=== PATIENT | male | born 1945 | race Caucasian/White ===

== ENCOUNTER 2018-01-15 14:00 | Emergency (ER) | payer MEDICARE, OTHER ==
[2018-01-15] MEDS ORDERED: Ondansetron ODT TAB* 4 MG PO ONE (14:02)
[2018-01-15] MEDS ORDERED: Morphine INJ* 2 MG/ML 1 ML CARPUJECT IV ONE (14:21)
[2018-01-15] MEDS ORDERED: Ondansetron INJ* 2 MG/ML VIAL IV ONE (14:21)
[2018-01-15 14:26] LABS: ABS Basophils 0.1 10^3/ul (0-0.2); ABS Eosinophils 0.3 10^3/ul (0-0.6); ABS Lymphocytes 1.8 10^3/ul (1.0-4.8); ABS Monocytes 0.6 10^3/ul (0-0.8); ABS Neutrophils 8.2 10^3/ul (1.5-7.7); ABS Nucleated RBC 0 10^3/ul; Eosinophil % 2.9 % (0-6); Hematocrit 43 % (42-52); Hemoglobin 14.7 g/dl (14.0-18.0); Lymphocyte % 16.1 % (25-47); Mean Corpuscular HGB Conc 34 g/dl (31-36); Mean Corpuscular Hemoglobin 30 pg (27-31); Mean Corpuscular Volume 89 fL (80-94); Mean Platelet Volume 8.5 um3 (7.4-10.4); Nucleated Red Blood Cells % 0; Platelet Count 221 10^3/ul (150-450); Red Blood Count 4.84 10^6/ul (4.00-5.40); Red Cell Distribution Width 13 % (10.5-15)
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
[2018-01-15] MEDS ORDERED: Morphine VIAL* 4 MG/ML VIAL (1 ml vial) IV ONE ×2 (14:28→14:30)
[2018-01-15] MEDS ORDERED: NS 0.9% 1000 ML* 2,000 ML IV SCH (14:30)
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
[2018-01-15 15:00] LABS: EGFR Non-African American 65.6 (>60)
[2018-01-15 15:06] VITALS: BP 144/76
== END 2018-01-15 15:19 | disposition short-term general hospital (02) ==
LOC: ED 14:00
DX: R07.9 Chest pain, unspecified (principal); M54.2 Cervicalgia; R07.81 Pleurodynia; R06.00 Dyspnea, unspecified; V28.4XXA Motorcycle driver injured in noncollision transport accident in traffic accident, initial encounter; Y92.9 Unspecified place or not applicable; Z87.891 Personal history of nicotine dependence; Z79.82 Long term (current) use of aspirin
CPT/HCPCS: 36415; 71045; 72170; 80053; 80320; 80329; 83605; 84443; 85025; 93005; 96374; 96375; 99285; A9270-GY; G0480; J2270; J2405

== ENCOUNTER 2018-02-06 10:32 | Emergency (ER) | payer MEDICARE, BC ==
--- OUTSIDE RECORDS SUMMARY | 2018-02-06 10:59 | XMS REPORT ---
:1945 External Reference #:[id number] Author Organization [facility] Address [address] [place] [address] Phone [phone] Care Team Providers Name Role Phone Paulo Reyna M.D. Care Team Information Pharmacy Helper Unavailable Payers Type Date Identification Numbers Payment Provider Subscriber Medicare Primary Effective: Policy Number: Medicare - Bswny Chas Tapia 2007 [id number] [facility] PayID: [id number] [address] [place] [address] Medigap Part B Effective: Policy Number: [facility] Chas Gutierrez 2018 [id number] [place] Group Name: [place] [address] [address] PayID: [id number] [place] [address] Medigap Part B Expires: 2014 Policy Number: Lifetime Benefit Chas Gutierrez [id number] Solution [place] PayID: [id number] [address] [address] [place] [address] Commercial Effective: 2014 Policy Number: MVP [facility] Chsa Tapia [id number] Expires: 2018 Group Number: [id number] [address] PayID: [id number] [place] [address] Problems Date Description Provider Status Onset: 09/03/2010 Pure hypercholesterolemia Paulo Reyna M.D. Active Onset: 09/03/2010 Raised prostate specific antigen Paulo Reyna M.D. Active Onset: 09/03/2010 Hematuria syndrome Paulo Reyna M.D. Active Onset: 09/03/2010 Impaired fasting glycaemia Paulo Reyna M.D. Active Family History Date Family Member(s) Problem(s) Comments : (age Father due to 68 Years) Complications From Hip Surgery Father Arthritis Mother Cancer, Breast : (age Mother due to Unknown ?CHF, no NH 98 Years) Causes Mother Cancer, Bladder Children 2 First Son Asthma Siblings One brother, two sisters First Brother Familial Adenomatous Polyposis First Sister Non Contributory Second Sister Obesity Grandchildren 4 Paternal Grandfather Diabetes Paternal Grandmother due to Had () - Cancer, Unknown Primary abdominal Paternal Grandmother Diabetes Maternal Grandfather due to Pneumonia () Maternal Grandmother due to Unknown () Causes Paternal Uncles Diabetes Social History Type Date Description Comments Marital Status Lives With Spouse 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 Cigarette Use former cigarette smoker Cigarette Use . Smoked off and on about 20 years. Up to 1 age 49. 1/2 ppd. Quit around ETOH Use Drinks a beer with dinner and an occasional scotch. Exercise Type/Frequency Does not exercise currently Allergies, Adverse Reactions, Alerts Date Description Reaction Status Severity Comments 11/03/2005 NKDA active Medications Medication Date Status Form Strength Qnty SIG Indications Ordering Provider Vitamin C 01/21/ Active Tablets 500mg 120ta 1 tab by [id number] Tony 2017 bs mouth twice [place], a day for 2 MD months Proscar 06/04/ Active Tablets 5mg 1 po qd [id number] MD Flavio Aspirin 10/26/ Active Chewtabs 81mg 90uni 1 PO qd Paulo 2007 ts Iona Reyna Betaxolol HCL / Active Solution 0.5% one drop Salazar, 0000 each eye Primo MJerome, daily Latanoprost / Active Solution 0.005% Instill 1 Unknown 0000 Drop In Each Eye Every Night Oxycodone / Active Unknown 0000 Doxycycline 05/07/ Hx Capsules 100mg 2caps 2 cap by Tony Saldana 2016 - mouth once [place], 01/21/ 2017 Doxycycline 12/02/ Hx Tablets 100mg 2tabs take 2 E906.4 Pualo Saldana 2016 - DR tablets po Axel, 01/12/ times one M.DJerome 2017 dose for the prevention of lyme disease Keflex 11/26/ Hx Capsules 500mg 10cap 1 twice a Paulo 2015 - day x 5 days Axel 03/26/ M.D. 2016 Doxycycline 03/09/ Hx Tablets 100mg 2tabs 2 tablet by Roxanne Reyes 2014 - mouth today Frannie, 07/31/ RECEPTION MANAGER-C 2015 Doxycycline 10/04/ Hx Tablets 100mg 2tabs take 2 E906.4 Jaclyn Saldana 2011 - DR tablets po Naomi Lockhart, 10/05/ times one M.D. 2011 dose for the prevention of lyme disease Viagra 09/10/ Hx Tablets 100mg 12tab 07/06-1 tab Paulo 2011 - s before Axel, 01/21/ intercourse M.D. 2018 Cialis 06/05/ Hx Tablets 20mg 20tab 07/06 to 1 qd Paulo 2010 - s prn Axel, M.DJerome 2017 Physical Hx Evaluate and Paulo Shirley 2010 - treat left Axel, 01/08/ knee pain M.D. 2010 and right shoulder pain Wrist Splints Hx 1unit right wrist, 354.0 Paulo 2009 - s tendonitis Axel, 01/02/ M.DJerome 2009 Zithromax Z-Baldomero 02/07/ Hx Tablets 250mg 6tabs 2 po on day 466.0 Ananya A. 2007 - 1, 1 po on Jodi, 10/04/ days 2-5 [facility] 2009 Robitussin ac 02/07/ Hx 8Oz two tsps 466.0 Ananya A. 2008 - every 4-6 Jodi, 04/02/ hours prn [facility] 2009 severe coughing Doxycycline 06/04/ Hx Caps DR 100mg 42cap 1 PO bid for 088.81 Samantha Les 2007 - Part s 21 days K.W. 10/26/ Johnson 2008 M.D. Physical Hx Evaluate And 719.41 Paulo Therapy 2005 - Treat Axel, 02/01/ Shoulder M.DJerome 2005 Pain Multivitamins / Hx Tablets 30tab 1 PO qd Unknown 0000 - s 2010 Flaxseed Oil / Hx Tablets 1 qd Unknown - 2010 Travatan / Hx Solution 0.004% Remedios Salazar 09/15/ 2012 Travatan Z / Hx Solution 0.004% , 0000 - Primo MJerome, 2016 Glucosamine / Hx Capsules Unknown Chondroitin 0000 - Complex 2017 Immunizations CPT Code Status Date Vaccine Lot # [id number] Given 03/30/2017 Tdap (Adacel) [id number] Given 03/30/2017 Influenza Vaccine High Dose PF [id number] Given 07/31/2014 Prevnar-13 Pneumococcal Conjugate Vaccine [id number] 92102 Given 07/03/2009 Pneumovax 23 (PPSV23) 65+ years or high risk 2 to [id number] 64 year old 30725 Given 10/27/2007 Tdap (Adacel) [id number] Vital Signs Date Vital Result Comment 01/25/2018 Weight 212.00 lb Weight in kg's 96.163 BP Systolic 138 mmHg BP Diastolic 76 mmHg Heart Rate 70 /min Body Temperature 98.0 F Respiratory Rate 20 /min 01/21/2018 Weight 213.00 lb Weight in kg's 96.617 BP Systolic 118 mmHg 120/90-left 110/70-bilateral bicep BP Diastolic 88 mmHg 120/90-left 110/70-bilateral bicep Heart Rate 80 /min Body Temperature 98.8 F Respiratory Rate 18 /min O2 % BldC Oximetry 922 % 09/28/2017 Weight 231.00 lb Weight in kg's 104.782 BP Systolic 108 mmHg BP Diastolic 66 mmHg Heart Rate 64 /min Body Temperature 97.4 F Respiratory Rate 17 /min O2 % BldC Oximetry 98 % 03/30/2017 Weight 229.00 lb Weight in kg's 103.874 BP Systolic 130 mmHg BP Diastolic 80 mmHg Heart Rate 72 /min Body Temperature 98.1 F Respiratory Rate 20 /min Height 72 inches 6'0" BMI (Body Mass Index) 31.1 kg/m2 01/12/2017 Weight 235.00 lb Weight in kg's 106.596 BP Systolic 144 mmHg BP Diastolic 84 mmHg Heart Rate 74 /min Body Temperature 97.4 F Respiratory Rate 16 /min O2 % BldC Oximetry 97 % 03/27/2016 Weight 227.00 lb Weight in kg's 102.967 BP Systolic 110 mmHg BP Diastolic 70 mmHg Heart Rate 62 /min Body Temperature 97.3 F Respiratory Rate 12 /min 01/17/2016 Weight 231.00 lb Weight in kg's 104.782 BP Systolic 130 mmHg BP Diastolic 68 mmHg Heart Rate 62 /min Body Temperature 98.6 F baby asprin at 1pm 11/27/2015 Weight 238.00 lb Weight in kg's 107.957 BP Systolic 140 mmHg BP Diastolic 70 mmHg Heart Rate 70 /min 01/29/2015 Weight 239.00 lb Weight in kg's 108.410 BP Systolic 130 mmHg BP Diastolic 68 mmHg Heart Rate 68 /min Body Temperature 98.2 F 01/25/2015 Weight 236.00 lb Weight in kg's 107.050 BP Systolic 134 mmHg BP Diastolic 78 mmHg Heart Rate 76 /min Body Temperature 97.7 F Height 72 inches 6'0" BMI (Body Mass Index) 32.0 kg/m2 07/31/2014 Weight 238.00 lb Weight in kg's 107.957 BP Systolic 146 mmHg BP Diastolic 78 mmHg Heart Rate 82 /min Height 72.5 inches 6'0.50" BMI (Body Mass Index) 31.8 kg/m2 2012 Weight 237.00 lb Weight in kg's 107.503 BP Systolic 112 mmHg BP Diastolic 70 mmHg Heart Rate 62 /min Height 72 inches 6'0" BMI (Body Mass Index) 32.1 kg/m2 06/23/2012 Weight 237.00 lb Weight in kg's 107.503 BP Systolic 138 mmHg BP Diastolic 64 mmHg Heart Rate 76 /min Body Temperature 97.4 F 02/10/2012 Weight 234.00 lb Weight in kg's 106.142 BP Systolic 130 mmHg BP Diastolic 72 mmHg Heart Rate 80 /min 12/29/2011 Weight 235.00 lb Weight in kg's 106.596 BP Systolic 120 mmHg BP Diastolic 80 mmHg Heart Rate 92 /min Body Temperature 97.9 F 12/14/2011 Weight 232.00 lb Weight in kg's 105.235 BP Systolic 136 mmHg BP Diastolic 76 mmHg Heart Rate 78 /min 10/05/2011 Weight 235.00 lb With Boots Weight in kg's 106.596 BP Systolic 124 mmHg BP Diastolic 70 mmHg Heart Rate 88 /min 09/11/2011 Weight 234.00 lb Weight in kg's 106.142 BP Systolic 132 mmHg BP Diastolic 70 mmHg Heart Rate 64 /min Body Temperature 97.6 F Height 72 inches 6'0" BMI (Body Mass Index) 31.7 kg/m2 07/29/2011 Weight 234.00 lb Weight in kg's 106.142 BP Systolic 130 mmHg BP Diastolic 80 mmHg Heart Rate 72 /min Body Temperature 98.3 F O2 % BldC Oximetry 97 % AT Room Air 06/05/2011 Weight 236.00 lb Weight in kg's 107.050 BP Systolic 128 mmHg BP Diastolic 68 mmHg Heart Rate 80 /min Body Temperature 97.2 F 03/13/2011 Weight 240.00 lb Weight in kg's 108.864 BP Systolic 120 mmHg BP Diastolic 68 mmHg Heart Rate 80 /min 09/25/2010 Weight 253.00 lb Weight in kg's 114.761 BP Systolic 130 mmHg BP Diastolic 74 mmHg Heart Rate 72 /min 09/03/2010 Weight 248.00 lb Weight in kg's 112.493 BP Systolic 142 mmHg repeat 140/82 BP Diastolic 90 mmHg repeat 140/82 Heart Rate 88 /min Height 72.25 inches 6'0.25" BMI (Body Mass Index) 33.4 kg/m2 12/19/2008 Weight 252.00 lb Weight in kg's 114.307 BP Systolic 150 mmHg repeat 136/74 BP Diastolic 74 mmHg repeat 136/74 Heart Rate 68 /min 12/06/2008 Weight 250.00 lb Weight in kg's 113.400 BP Systolic 130 mmHg BP Diastolic 90 mmHg Heart Rate 72 /min 10/04/2008 Weight 250.00 lb Weight in kg's 113.400 BP Systolic 132 mmHg BP Diastolic 70 mmHg Heart Rate 68 /min Body Temperature 97.8 F 02/08/2008 Weight 247.00 lb Weight in kg's 112.039 BP Systolic 122 mmHg BP Diastolic 82 mmHg Heart Rate 84 /min Body Temperature 97.7 F Height 71.75 inches 5'11.75" BMI (Body Mass Index) 33.7 kg/m2 O2 % BldC Oximetry 94 % 10/27/2007 Weight 247.00 lb Weight in kg's 112.039 BP Systolic 138 mmHg BP Diastolic 78 mmHg Heart Rate 78 /min Height 71.75 inches 5'11.75" BMI (Body Mass Index) 33.7 kg/m2 09/20/2007 Weight 253.00 lb Weight in kg's 114.761 BP Systolic 114 mmHg BP Diastolic 68 mmHg Heart Rate 84 /min 06/04/2007 BP Systolic 134 mmHg BP Diastolic 70 mmHg Heart Rate 72 /min Body Temperature 97.3 F Oral 11/26/2006 Weight 252.00 lb Weight in kg's 114.307 BP Systolic 132 mmHg BP Diastolic 80 mmHg Heart Rate 76 /min 05/05/2006 Weight 248.00 lb Weight in kg's 112.493 BP Systolic 118 mmHg BP Diastolic 80 mmHg Heart Rate 80 /min 11/03/2005 Weight 248.00 lb Weight in kg's 112.493 BP Systolic 120 mmHg BP Diastolic 72 mmHg Heart Rate 72 /min Body Temperature 96.5 F Results Test Date Test Result H/L Range Note Laboratory test finding 01/15/2018 Lactic Acid 1.3 mmol/L 0.5-2.0 1 CBC Auto Diff 01/15/2018 White Blood Count 11.0 10^3/uL High 3.5-10.8 Red Blood Count 4.84 10^6/uL 4.00-5.40 Hemoglobin 14.7 g/dL 14.0-18.0 Hematocrit 43 % 42-52 Mean Corpuscular Volume 89 fL 80-94 Mean Corpuscular Hemoglobin 30 pg 27-31 Mean Corpuscular HGB Conc 34 g/dL 31-36 Red Cell Distribution Width 13 % 10.5-15 Platelet Count 221 10^3/uL 150-450 Mean Platelet Volume 8.5 um3 7.4-10.4 Abs Neutrophils 8.2 10^3/uL High 1.5-7.7 Abs Lymphocytes 1.8 10^3/uL 1.0-4.8 Abs Monocytes 0.6 10^3/uL 0-0.8 Abs Eosinophils 0.3 10^3/uL 0-0.6 Abs Basophils 0.1 10^3/uL 0-0.2 Abs Nucleated RBC 0 10^3/uL Granulocyte % 74.6 % 38-83 Lymphocyte % 16.1 % Low 25-47 Monocyte % 5.9 % 0-7 Eosinophil % 2.9 % 0-6 Basophil % 0.5 % 0-2 Nucleated Red Blood Cells % 0 Comp Metabolic Panel 01/15/2018 Sodium 139 mmol/L 135-145 Potassium 4.2 mmol/L 3.5-5.0 Chloride 102 mmol/L 101-111 Co2 Carbon Dioxide 31 mmol/L 22-32 Anion Gap 6 mmol/L 2-11 Glucose 106 mg/dL High 70-100 Blood Urea Nitrogen 21 mg/dL 6-24 Creatinine 1.10 mg/dL 0.67-1.17 BUN/Creatinine Ratio 19.1 8-20 Calcium 9.6 mg/dL 8.6-10.3 Total Protein 7.8 g/dL 6.4-8.9 Albumin 4.3 g/dL 3.2-5.2 Globulin 3.5 g/dL 2-4 Albumin/Globulin Ratio 1.2 1-3 Total Bilirubin 0.60 mg/dL 0.2-1.0 Alkaline Phosphatase 58 U/L 34-104 Alt 15 U/L 7-52 Ast 20 U/L 13-39 Egfr Non- 65.6 >60 Egfr 79.4 >60 2 Laboratory test finding 01/15/2018 Acetaminophen < 15 g/mL 3 Alcohol < 10 mg/dL <10 Salicylate < 2.50 mg/dL <30 TSH (Thyroid Stimulating Horm) 3.23 mcIU/mL 0.34-5.60 Laboratory test finding 09/20/2017 PSA Screening 1.775 ng/mL 0-4.0 4 Lipid Profile (Trig/Chol/HDL) 03/24/2017 Triglycerides 120 mg/dL 5 Cholesterol 212 mg/dL 6 HDL Cholesterol 33.8 mg/dL 7 LDL Cholesterol 154 mg/dL 8 Laboratory test finding 03/24/2017 Hemoglobin A1c (Glyco HGB) 5.3 % Less than 6.0 9 PSA Screening 1.434 ng/mL 0-4.000 10 CBC Auto Diff 01/12/2017 White Blood Count 7.0 10^3/uL 3.5-10.8 Red Blood Count 4.73 10^6/uL 4.0-5.4 Hemoglobin 14.2 g/dL 14.0-18.0 Hematocrit 44 % 42-52 Mean Corpuscular Volume 93 fL 80-94 Mean Corpuscular Hemoglobin 30 pg 27-31 Mean Corpuscular HGB Conc 32 g/dL 31-36 Red Cell Distribution Width 14 % 10.5-15 Platelet Count 189 10^3/uL 150-450 Mean Platelet Volume 10 um3 7.4-10.4 Abs Neutrophils 4.7 10^3/uL 1.5-7.7 Abs Lymphocytes 1.5 10^3/uL 1.0-4.8 Abs Monocytes 0.5 10^3/uL 0-0.8 Abs Eosinophils 0.2 10^3/uL 0-0.6 Abs Basophils 0.1 10^3/uL 0-0.2 Abs Nucleated RBC 0 10^3/uL Granulocyte % 67.3 % 38-83 Lymphocyte % 21.3 % Low 25-47 Monocyte % 7.1 % 1-9 Eosinophil % 2.5 % 0-6 Basophil % 1.8 % 0-2 Nucleated Red Blood Cells % 0.1 Comp Metabolic Panel 01/12/2017 Sodium 140 mmol/L 133-145 Potassium 4.5 mmol/L 3.5-5.0 Chloride 105 mmol/L 101-111 Co2 Carbon Dioxide 30 mmol/L 22-32 Anion Gap 5 mmol/L 2-11 Glucose 94 mg/dL 70-100 Blood Urea Nitrogen 22 mg/dL 6-24 Creatinine 0.95 mg/dL 0.67-1.17 BUN/Creatinine Ratio 23.2 High 8-20 Calcium 9.4 mg/dL 8.6-10.3 Total Protein 7.0 g/dL 6.4-8.9 Albumin 4.3 g/dL 3.2-5.2 Globulin 2.7 g/dL 2-4 Albumin/Globulin Ratio 1.6 1-3 Total Bilirubin 0.60 mg/dL 0.2-1.0 Alkaline Phosphatase 47 U/L 34-104 Alt 14 U/L 7-52 Ast 18 U/L 13-39 Egfr Non- 77.9 >60 Egfr 100.2 >60 11 Laboratory test finding 01/12/2017 TSH (Thyroid Stim 0.93 mcIU/mL 0.34- 5.60 12 Horm) Vitamin B12 319 pg/mL 180-914 13 Syphillis Igg W/Reflex RPR Nonreactive Nonreactive 14 Basic Metabolic Panel 09/09/2016 Sodium 139 mmol/L 133-145 Potassium 4.4 mmol/L 3.5-5.0 Chloride 102 mmol/L 101-111 Co2 Carbon Dioxide 30 mmol/L 22-32 Anion Gap 7 mmol/L 2-11 Glucose 88 mg/dL 70-100 Blood Urea Nitrogen 17 mg/dL 6-24 Creatinine 1.29 mg/dL High 0.67-1.17 BUN/Creatinine Ratio 13.2 8-20 Calcium 9.4 mg/dL 8.6-10.3 Egfr Non- 54.9 >60 Egfr 70.6 >60 15 Laboratory test finding 09/09/2016 PSA Screening 1.742 ng/mL 0-4.0 16 Comp Metabolic Panel 03/27/2016 Sodium 140 mmol/L 133-145 Potassium 4.2 mmol/L 3.5-5.0 Chloride 104 mmol/L 101-111 Co2 Carbon Dioxide 31 mmol/L 22-32 Anion Gap 5 mmol/L 2-11 Glucose 89 mg/dL 70-100 Blood Urea Nitrogen 22 mg/dL 6-24 Creatinine 1.00 mg/dL 0.67-1.17 BUN/Creatinine Ratio 22.0 High 8-20 Calcium 9.4 mg/dL 8.6-10.3 Total Protein 7.3 g/dL 6.4-8.9 Albumin 4.5 g/dL 3.2-5.2 Globulin 2.8 g/dL 2-4 Albumin/Globulin Ratio 1.6 1-3 Total Bilirubin 0.90 mg/dL 0.2-1.0 Alkaline Phosphatase 51 U/L 34-104 Alt 13 U/L 7-52 Ast 18 U/L 13-39 Egfr Non- 73.7 >60 Egfr 94.7 >60 17 Lipid Profile (Trig/Chol/HDL) 03/27/2016 Triglycerides 142 mg/dL 18 Cholesterol 225 mg/dL 19 HDL Cholesterol 32.1 mg/dL 20 LDL Cholesterol 165 mg/dL 21 Laboratory test 03/27/2016 Hemoglobin A1c (Glyco 5.5 % Less than 6.0 22 finding HGB) CBC Auto Diff 03/27/2016 White Blood Count 6.6 10^3/uL 3.5-10.8 Red Blood Count 4.95 10^6/uL 4.0-5.4 Hemoglobin 14.7 g/dL 14.0-18.0 Hematocrit 45 % 42-52 Mean Corpuscular Volume 91 fL 80-94 Mean Corpuscular Hemoglobin 30 pg 27-31 Mean Corpuscular HGB Conc 33 g/dL 31-36 Red Cell Distribution Width 14 % 10.5-15 Platelet Count 218 10^3/uL 150-450 Mean Platelet Volume 10 um3 7.4-10.4 Abs Neutrophils 4.1 10^3/uL 1.5-7.7 Abs Lymphocytes 1.8 10^3/uL 1.0-4.8 Abs Monocytes 0.5 10^3/uL 0-0.8 Abs Eosinophils 0.2 10^3/uL 0-0.6 Abs Basophils 0.1 10^3/uL 0-0.2 Abs Nucleated RBC 0 10^3/uL Granulocyte % 61.7 % 38-83 Lymphocyte % 26.6 % 25-47 Monocyte % 7.3 % 1-9 Eosinophil % 3.5 % 0-6 Basophil % 0.9 % 0-2 Nucleated Red Blood Cells % 0.1 Laboratory test finding 03/27/2016 TSH (Thyroid Stim 0.88 mcIU/mL 0.34- 5.60 23 Horm) Comp Metabolic Panel 03/06/2015 Sodium 139 mmol/L 133-145 Potassium 4.3 mmol/L 3.5-5.0 Chloride 104 mmol/L 101-111 Co2 Carbon Dioxide 30 mmol/L 22-32 Anion Gap 5 mmol/L 2-11 Glucose 86 mg/dL 70-100 Blood Urea Nitrogen 23 mg/dL 6-24 Creatinine 0.89 mg/dL 0.67-1.17 BUN/Creatinine Ratio 25.8 High 8-20 Calcium 8.9 mg/dL 8.6-10.3 Total Protein 6.6 g/dL 6.4-8.9 Albumin 4.0 g/dL 3.2-5.2 Globulin 2.6 g/dL 2-4 Albumin/Globulin Ratio 1.5 1-3 Total Bilirubin 0.60 mg/dL 0.2-1.0 Alkaline Phosphatase 46 U/L 34-104 Alt 20 U/L 7-52 Ast 23 U/L 13-39 Egfr Non- 84.5 >60 Egfr 108.7 >60 24 Lipid Profile (Trig/Chol/HDL) 03/06/2015 Triglycerides 169 mg/dL 25 Cholesterol 210 mg/dL 26 HDL Cholesterol 28.7 mg/dL 27 LDL Cholesterol 148 mg/dL 28 Laboratory test 03/06/2015 Hemoglobin A1c (Glyco 5.8 % Less than 6.0 29 finding HGB) Laboratory test 03/06/2015 PSA Diagnostic 1.465 ng/mL 0-4.000 30 finding CBC Auto Diff 03/06/2015 White Blood Count 6.5 10^3/uL 4.8-10.8 Red Blood Count 4.79 10^6/uL 4.0-5.4 Hemoglobin 14.4 g/dL 14.0-18.0 Hematocrit 44 % 42-52 Mean Corpuscular Volume 93 fL 80-94 Mean Corpuscular Hemoglobin 30 pg 27-31 Mean Corpuscular HGB Conc 32 g/dL 31-36 Red Cell Distribution Width 14 % 10.5-15 Platelet Count 183 10^3/uL 150-450 Mean Platelet Volume 9 um3 7.4-10.4 Abs Neutrophils 3.4 10^3/uL 1.5-7.7 Abs Lymphocytes 2.2 10^3/uL 1.0-4.8 Abs Monocytes 0.5 10^3/uL 0-0.8 Abs Eosinophils 0.4 10^3/uL 0-0.6 Abs Basophils 0.1 10^3/uL 0-0.2 Abs Nucleated RBC 0 10^3/uL Granulocyte % 52.5 % 38-83 Lymphocyte % 33.2 % 25-47 Monocyte % 7.5 % 1-9 Eosinophil % 6.0 % 0-6 Basophil % 0.8 % 0-2 Nucleated Red Blood Cells % 0 CBC Auto Diff 01/29/2015 White Blood Count 6.6 10^3/uL 4.8-10.8 Red Blood Count 4.87 10^6/uL 4.0-5.4 Hemoglobin 14.3 g/dL 14.0-18.0 Hematocrit 45 % 42-52 Mean Corpuscular Volume 93 fL 80-94 Mean Corpuscular Hemoglobin 29 pg 27-31 Mean Corpuscular HGB Conc 32 g/dL 31-36 Red Cell Distribution Width 14 % 10.5-15 Platelet Count 217 10^3/uL 150-450 Mean Platelet Volume 10 um3 7.4-10.4 Abs Neutrophils 3.9 10^3/uL 1.5-7.7 Abs Lymphocytes 1.8 10^3/uL 1.0-4.8 Abs Monocytes 0.6 10^3/uL 0-0.8 Abs Eosinophils 0.3 10^3/uL 0-0.6 Abs Basophils 0 10^3/uL 0-0.2 Abs Nucleated RBC 0.01 10^3/uL Granulocyte % 58.4 % 38-83 Lymphocyte % 27.4 % 25-47 Monocyte % 9.1 % High 1-9 Eosinophil % 4.4 % 0-6 Basophil % 0.7 % 0-2 Nucleated Red Blood Cells % 0.2 Laboratory test finding 01/29/2015 Uric Acid 6.3 mg/dL 4.4-7.6 Comp Metabolic Panel 01/29/2015 Sodium 139 mmol/L 133-145 Potassium 4.6 mmol/L 3.5-5.0 Chloride 103 mmol/L 101-111 Co2 Carbon Dioxide 32 mmol/L 22-32 Anion Gap 4 mmol/L 2-11 Glucose 88 mg/dL 70-100 Blood Urea Nitrogen 21 mg/dL 6-24 Creatinine 1.02 mg/dL 0.67-1.17 BUN/Creatinine Ratio 20.6 High 8-20 Calcium 9.5 mg/dL 8.6-10.3 Total Protein 7.1 g/dL 6.4-8.9 Albumin 4.3 g/dL 3.2-5.2 Globulin 2.8 g/dL 2-4 Albumin/Globulin Ratio 1.5 1-3 Total Bilirubin 0.60 mg/dL 0.2-1.0 Alkaline Phosphatase 63 U/L 34-104 Alt 13 U/L 7-52 Ast 17 U/L 13-39 Egfr Non- 72.2 >60 Egfr 92.9 >60 31 CBC Auto Diff 07/24/2014 White Blood Count 5.9 10^3/uL 4.8-10.8 32 Red Blood Count 4.68 10^6/uL 4.0-5.4 32 Hemoglobin 14.0 g/dL 14.0-18.0 32 Hematocrit 42 % 42-52 32 Mean Corpuscular Volume 90 fL 80-94 32 Mean Corpuscular Hemoglobin 30 pg 27-31 32 Mean Corpuscular HGB Conc 33 g/dL 31-36 32 Red Cell Distribution Width 14 % 10.5-15 32 Platelet Count 219 10^3/uL 150-450 32 Mean Platelet Volume 9 um3 7.4-10.4 32 Abs Neutrophils 2.6 10^3/uL 1.5-7.7 32 Abs Lymphocytes 2.3 10^3/uL 1.0-4.8 32 Abs Monocytes 0.6 10^3/uL 0-0.8 32 Abs Eosinophils 0.3 10^3/uL 0-0.6 32 Abs Basophils 0 10^3/uL 0-0.2 32 Abs Nucleated RBC 0 10^3/uL 32 Granulocyte % 43.8 % 38-83 32 Lymphocyte % 39.5 % 25-47 32 Monocyte % 10.7 % High 1-9 32 Eosinophil % 5.4 % 0-6 32 Basophil % 0.6 % 0-2 32 Nucleated Red Blood Cells % 0.1 32 Laboratory test finding 07/24/2014 Hemoglobin A1c 5.8 % Less than 6.0 32 , 33 Lipid Profile 07/24/2014 Triglycerides 135 mg/dL 32, 34 (Trig/Chol/HDL) Cholesterol 186 mg/dL 32, 35 HDL Cholesterol 28.2 mg/dL 32, 36 LDL Cholesterol 131 mg/dL 32, 37 Comp Metabolic Panel 07/24/2014 Sodium 139 mmol/L 133-145 32 Potassium 4.1 mmol/L 3.5-5.0 32 Chloride 104 mmol/L 101-111 32 Co2 Carbon Dioxide 31 mmol/L 22-32 32 Anion Gap 4 mmol/L 2-11 32 Glucose 94 mg/dL 70-100 32 Blood Urea Nitrogen 19 mg/dL 6-24 32 Creatinine 1.07 mg/dL 0.67-1.17 32 BUN/Creatinine Ratio 17.8 8-20 32 Calcium 9.1 mg/dL 8.6-10.3 32 Total Protein 7.0 g/dL 6.4-8.9 32 Albumin 4.1 g/dL 3.2-5.2 32 Globulin 2.9 g/dL 2-4 32 Albumin/Globulin Ratio 1.4 1-3 32 Total Bilirubin 0.60 mg/dL 0.2-1.0 32 Alkaline Phosphatase 49 U/L 34-104 32 Alt 17 U/L 7-52 32 Ast 17 U/L 13-39 32 Egfr Non- 68.5 >60 32 Egfr 88.1 >60 32, 38 Laboratory test finding 03/26/2014 PSA Diagnostic 1.501 ng/mL 0-4.000 39 , 40 Basic Metabolic Panel 02/17/2013 Sodium 140 mmol/L 133-145 Potassium 4.3 mmol/L 3.5-5.0 Chloride 105 mmol/L 101-111 Co2 Carbon Dioxide 30.0 mmol/L 22-32 Anion Gap 5.0 mmol/L 2-11 Glucose 84 mg/dL 70-100 Blood Urea Nitrogen 23 mg/dL 6-24 Creatinine 0.80 mg/dL 0.50-1.40 BUN/Creatinine Ratio 28.8 High 8-20 Calcium 9.3 mg/dL 8.1-9.9 Egfr Non- 96.1 >60 Egfr 123.6 >60 41 Laboratory test finding 02/17/2013 PSA Diagnostic 2.2 ng/mL 0-4.0 42 Urine DIP 2012 Leukocytes NEG Neg Urine Nitrites NEG Neg Urine pH 5 5-6 Total Protein, Urine TRACE Neg Urine Glucose NORM Norm Urine Ketones NEG Neg Urobilinogen NORM Norm Urine Bilirubin NEG Neg Urine Blood 250 High Neg Specific [place] 1.020 1.01-1.02 Comp Metabolic Panel 08/22/2012 Sodium 137 mmol/L 133-145 Potassium 4.1 mmol/L 3.5-5.0 Chloride 106 mmol/L 101-111 Co2 Carbon Dioxide 29.0 mmol/L 22-32 Anion Gap 2.0 mmol/L 2-11 Glucose 90 mg/dL 70-100 Blood Urea Nitrogen 17 mg/dL 6-24 Creatinine 0.90 mg/dL 0.50-1.40 BUN/Creatinine Ratio 18.9 8-20 Calcium 8.9 mg/dL 8.1-9.9 Total Protein 6.4 g/dL 6.2-8.1 Albumin 3.9 g/dL 3.2-5.2 Globulin 2.5 g/dL 2-4 Albumin/Globulin Ratio 1.6 1-3 Total Bilirubin 1.1 mg/dL 0.4-1.5 Alkaline Phosphatase 51 U/L 30-110 Alt 17 U/L 14-54 Ast 19 U/L 12-42 Egfr Non- 84.2 >60 Egfr 108.2 >60 43 Lipid Profile (Trig/Chol/HDL) 08/22/2012 Triglycerides 93 mg/dL 40-200 Cholesterol 214 mg/dL High Less than 200 HDL Cholesterol 35 mg/dL Low 40-60 44 Cholesterol/HDL Ratio 6.1 Average High 1-4.44 LDL Cholesterol 160.4 mg/dL High Less Than 100 45 Laboratory test finding 08/22/2012 Hemoglobin A1c 5.4 % Less than 6.0 46 CBC Auto Diff 08/22/2012 White Blood Count 5.4 10^3/uL 4.8-10.8 Red Blood Count 4.79 10^6/uL 4.0-5.4 Hemoglobin 14.8 g/dL 14.0-18.0 Hematocrit 44 % 42-52 Mean Corpuscular Volume 91 fL 80-94 Mean Corpuscular Hemoglobin 31 pg 27-31 Mean Corpuscular HGB Conc 34 g/dL 31-36 Red Cell Distribution Width 14 % 10.5-15 Platelet Count 194 10^3/uL 150-450 Mean Platelet Volume 9 um3 7.4-10.4 Abs Neutrophils 2.7 10^3/uL 1.5-7.7 Abs Lymphocytes 1.9 10^3/uL 1.0-4.8 Abs Monocytes 0.5 10^3/uL 0-0.8 Abs Eosinophils 0.3 10^3/uL 0-0.6 Abs Basophils 0 10^3/uL 0-0.2 Abs Nucleated RBC 0 10^3/uL Granulocyte % 50.1 % 38-83 Lymphocyte % 35.3 % 25-47 Monocyte % 9.0 % 1-9 Eosinophil % 5.1 % 0-6 Basophil % 0.5 % 0-2 Nucleated Red Blood Cells % 0 Laboratory test finding 08/22/2012 PSA Screening 2.3 ng/mL 0-4.0 47 Laboratory test finding 02/10/2012 PSA 2.41 NG/ML 0-4 48 CBC Auto Diff 09/04/2011 White Blood Count 4.3 CUMM Low 4.8-10.8 Red Cell Count 4.42 CUMM Low 4.6-6.2 Hemoglobin 13.5 g/dL Low 14.0-18.0 Hematocrit 40 % Low 42-52 Mean Corpuscular Volume 90 um3 80-94 Mean Corpuscular Hemoglob 31 pg 27-31 Mean Corpuscular HGB Cone 34 g/dL 32-36 Redcell Distribution WDTH 14 % 10.5-15 Platelet Count 169 CUMM 150-450 Mean Platelet Volume 9.1 um3 7.4-10.4 Gran % 44.8 % 38-83 Lymph % 39.1 % 25-47 Mononuclear % 8.4 % 1-9 Eosinophil % 7.0 % High 0-6 Basophil % 0.7 % 0-2 Abs Lymphs 1.7 1.0-4.8 Abs Mononuclear 0.4 0-0.8 Absolute Neutrophil Count 1.9 1.5-7.7 Abs Eosinophils 0.3 0-0.6 Abs Basophils 0 0-0.2 Laboratory test finding 09/04/2011 Hemoglobin A1c 5.6 % Less Than 6.0 49 PSA,Diagnostic 2.46 NG/ML 0-4 50 Lipid Profile (Trig/Chol/HDL) 09/04/2011 Triglyceride 87 mg/dL 40-200 Cholesterol 198 mg/dL Less Than 200 51 High Density Lipoprotein 26 mg/dL Low 40-60 52 Cholesterol/HDL Ratio 7.62 AVERAGE High 1-4.97 Low Density Lipoprotein 155 mg/dL High Less Than 100 53 Comp Metabolic Panel 09/04/2011 Sodium 138 mmol/L 135-145 Potassium 4.0 mmol/L 3.5-5.0 Chloride 102 mmol/L 101-111 Co2 (Carbon Dioxide) 29.0 mmol/L 22-32 Anion Gap 7.0 mmol/L 2-11 54 Glucose 88 mg/dL 70-100 BUN 18 mg/dL 6-24 Creatinine 1.1 mg/dL 0.50-1.40 One Over Creatinine 0.90 BUN/Creatinine Ratio 16.4 8-20 Calcium 8.8 mg/dL 8.1-9.9 Total Protein 6.6 GM/DL 6.2-8.1 Albumin 4.0 GM/DL 3.2-5.2 Globulin 2.6 GM/DL 2-4 Albumin/Globulin Ratio 1.5 1-3 Bilirubin Total 0.9 mg/dL 0.4-1.5 55 Alkaline Phosphatase 56 U/L 39-117 Alt (SGPT) 18 U/L 17-63 Ast (Sgot) 18 U/L 12-42 eGFR Non- 67.0 > 60 eGFR 86.1 > 60 56 Laboratory test finding 03/10/2011 Glucose 98 mg/dL 70-100 Hemoglobin A1c 5.8 % Less Than 6.0 57 PSA,Diagnostic 2.40 NG/ML 0-4 58 Lipid Profile (Trig/Chol/HDL) 03/10/2011 Triglyceride 151 mg/dL 40-200 Cholesterol 222 mg/dL High Less Than 200 59 High Density Lipoprotein 30 mg/dL Low 40-60 60 Cholesterol/HDL Ratio 7.40 AVERAGE High 1-4.97 Low Density Lipoprotein 162 mg/dL High Less Than 100 61 Lipid Profile (Trig/Chol/HDL) 08/27/2010 Triglyceride 132 mg/dL 40-200 Cholesterol 205 mg/dL High Less Than 200 62 High Density Lipoprotein 29 mg/dL Low 40-60 63 Cholesterol/HDL Ratio 7.07 AVERAGE High 1-4.97 Low Density Lipoprotein 150 mg/dL High Less Than 100 64 Comp Metabolic Panel 08/27/2010 Sodium 137 mmol/L 135-145 Potassium 4.1 mmol/L 3.5-5.0 Chloride 102 mmol/L 101-111 Co2 (Carbon Dioxide) 30.0 mmol/L 22-32 Anion Gap 5.0 mmol/L 2-11 65 Glucose 107 mg/dL High 70-100 BUN 18 mg/dL 6-24 Creatinine 1.10 mg/dL 0.50-1.40 One Over Creatinine 0.90 BUN/Creatinine Ratio 16.4 8-20 Calcium 8.9 mg/dL 8.1-9.9 Total Protein 6.6 GM/DL 6.2-8.1 Albumin 3.9 GM/DL 3.2-5.2 Globulin 2.7 GM/DL 2-4 Albumin/Globulin Ratio 1.4 1-3 Bilirubin Total 0.7 mg/dL 0.4-1.5 66 Alkaline Phosphatase 52 U/L 39-117 Alt (SGPT) 16 U/L Low 17-63 Ast (Sgot) 16 U/L 12-42 eGFR Non- 67.2 > 60 eGFR 86.4 > 60 67 CBC With Electronic Diff 08/27/2010 White Blood Count 6.5 CUMM 4.8-10.8 Red Cell Count 4.67 CUMM 4.6-6.2 Hemoglobin 14.1 g/dL 14.0-18.0 Hematocrit 42 % 42-52 Mean Corpuscular Volume 89 um3 80-94 Mean Corpuscular Hemoglob 30 pg 27-31 Mean Corpuscular HGB Cone 34 g/dL 32-36 Redcell Distribution WDTH 14 % 10.5-15 Platelet Count 175 CUMM 150-450 Mean Platelet Volume 9.6 um3 7.4-10.4 Gran % 51.9 % 38-83 Lymph % 32.9 % 25-47 Mononuclear % 9.0 % 1-9 Eosinophil % 5.8 % 0-6 Basophil % 0.4 % 0-2 Abs Lymphs 2.1 1.0-4.8 Abs Mononuclear 0.6 0-0.8 Absolute Neutrophil Count 3.4 1.5-7.7 Abs Eosinophils 0.4 0-0.6 Abs Basophils 0 0-0.2 Laboratory test finding 01/14/2010 PSA,Diagnostic 1.87 NG/ML 0-4 68 PSA,Diagnostic 07/03/2009 PSA Screening 2.18 NG/ML 0-4 69 Laboratory test finding 07/10/2008 PSA Screening 2.13 NG/ML 0-4 70 Surgical Pathology 01/03/2008 Surgical Pathology 71 <SEE NOTE> PSA Fractionated Free And 10/27/2007 Total PSA 5.4 ng/mL 0.0-4.2 Tot Free PSA 1.0 ng/mL () Free PSA/PSA Ratio 0.18 () 72 Laboratory test finding 09/20/2007 TSH 1.17 MIU/ML 0.34-5.60 PSA Screening 4.34 NG/ML High 0-4 73 Lipid Profile 09/20/2007 Cholesterol/HDL Ratio 7.56 AVERAGE High 1-4.97 (Trig/Chol/HDL) Cholesterol 204 mg/dL High Less Than 200 74 Triglyceride 153 mg/dL 40-200 High Density Lipoprotein 27 mg/dL Low 40-60 75 Low Density Lipoprotein 146 mg/dL High Less Than 100 76 Comp Metabolic Panel 09/20/2007 One Over Creatinine 0.83 Anion Gap 1.0 mmol/L Low 2-11 77 Albumin/Globulin Ratio 1.4 1-3 Albumin 4.2 GM/DL 3.2-5.2 Alkaline Phosphatase 51 U/L 39-117 Alt (SGPT) 23 U/L 17-63 Ast (Sgot) 22 U/L 12-42 BUN 16 mg/dL 6-24 Calcium 8.7 mg/dL 8.7-10.2 Chloride 105 mmol/L 101-111 Co2 (Carbon Dioxide) 30.0 mmol/L 22-32 Globulin 2.9 GM/DL 2-4 Glucose 81 mg/dL 70-105 Potassium 4.2 mmol/L 3.5-5.0 Sodium 136 mmol/L 135-145 Bilirubin Total 1.1 mg/dL 0.4-1.5 Total Protein 7.1 GM/DL 6.2-8.1 BUN/Creatinine Ratio 13.3 8-20 Creatinine 1.2 mg/dL 0.5-1.4 CBC With Electronic Diff 09/20/2007 White Blood Count 6.3 CUMM 4.8-10.8 Abs Basophils 0 0-0.2 Abs Eosinophils 0.3 0-0.6 Absolute Neutrophil Count 3.6 1.5-7.7 Abs Lymphs 1.8 1.0-4.8 Abs Mononuclear 0.5 0-0.8 Basophil % 0.5 % 0-2 Hematocrit 43 % 42-52 Hemoglobin 14.9 g/dL 14.0-18.0 Eosinophil % 4.4 % 0-6 Gran % 57.9 % 38-83 Lymph % 29.1 % 20-45 Mean Corpuscular HGB Cone 34 g/dL 32-36 Mean Corpuscular Hemoglob 30 pg 27-31 Mean Corpuscular Volume 87 um3 80-94 Mean Platelet Volume 9.6 um3 7.4-10.4 Mononuclear % 8.1 % 1-9 Platelet Count 251 CUMM 150-450 Red Cell Count 5.01 CUMM 4.6-6.2 Redcell Distribution WDTH 14 % 10.5-15 1 [facility] Severe Sepsis and Septic Shock Management Bundle Measure requires all lactic acids initially measuring >2.0 mmol/L be repeated. 2 Because ethnic data is not always readily available, this report includes an eGFR for both -Americans and non- Americans. The National Kidney Disease Education Program (NKDEP) does not endorse the use of the MDRD equation for patients that are not between the ages of 18 and 70, are , have extremes of body size, muscle mass, or nutritional status, or are non- or non-. According to the National Kidney Foundation, irrespective of diagnosis, the stage of the disease is based on the level of kidney function: Stage Description GFR(mL/min/1.73 m(2)) 1 Kidney damage with normal or decreased GFR 90 2 Kidney damage with mild decrease in GFR 60-89 3 Moderate decrease in GFR 30-59 4 Severe decrease in GFR 15-29 5 Kidney failure <15 (or dialysis) 3 Therapeutic concentration: <50 ug/mL Toxic concentration: >120 ug/mL 4 Serum levels of PSA measured using the [employer] D[employer] Hybritech immunoassay should not be interpreted as absolute evidence of the presence or absence of disease. The PSA value should be used in conjunction with other pertinent clinical diagnostic procedures. The values obtained with different assay methods or kits cannot be used interchangeably. 5 Desirable <150 Borderline high 150-199 High 200-499 Very High >500 6 Desirable <200 Borderline high 200-239 High >239 7 Low <40 Desirable: 40-60 High: >60 8 Desirable: <100 mg/dL Near Optimal: 100-129 mg/dL Borderline High: 130-159 mg/dL High: 160-189 mg/dL Very High: >189 mg/dL 9 Therapeutic target for the treatment of diabetes Mellitus patients is <7% HBA1C, and in selective patients <6.0%.Please refer to [place] [employer] Diabetic care guidelines for further information. 10 Serum levels of PSA measured using the [employer] DXI Hybritech immunoassay should not be interpreted as absolute evidence of the presence or absence of disease. The PSA value should be used in conjunction with other pertinent clinical diagnostic procedures. The values obtained with different assay methods or kits cannot be used interchangeably. 11 Because ethnic data is not always readily available, this report includes an eGFR for both -Americans and non- Americans. The National Kidney Disease Education Program (NKDEP) does not endorse the use of the MDRD equation for patients that are not between the ages of 18 and 70, are , have extremes of body size, muscle mass, or nutritional status, or are non- or non-. According to the National Kidney Foundation, irrespective of diagnosis, the stage of the disease is based on the level of kidney function: Stage Description GFR(mL/min/1.73 m(2)) 1 Kidney damage with normal or decreased GFR 90 2 Kidney damage with mild decrease in GFR 60-89 3 Moderate decrease in GFR 30-59 4 Severe decrease in GFR 15-29 5 Kidney failure <15 (or dialysis) 12 [id number] 13 Normal Range 180 to 914 Indeterminate Range 145 to 180 Deficient Range <145 14 Warning: A positive result is not useful for establishing a diagnosis of syphilis. In most situations, such a result may reflect a prior treated infection; a negative result can exclude a diagnosis of syphilis except for incubating or early primary disease. 15 Because ethnic data is not always readily available, this report includes an eGFR for both -Americans and non- Americans. The National Kidney Disease Education Program (NKDEP) does not endorse the use of the MDRD equation for patients that are not between the ages of 18 and 70, are , have extremes of body size, muscle mass, or nutritional status, or are non- or non-. According to the National Kidney Foundation, irrespective of diagnosis, the stage of the disease is based on the level of kidney function: Stage Description GFR(mL/min/1.73 m(2)) 1 Kidney damage with normal or decreased GFR 90 2 Kidney damage with mild decrease in GFR 60-89 3 Moderate decrease in GFR 30-59 4 Severe decrease in GFR 15-29 5 Kidney failure <15 (or dialysis) 16 Serum levels of PSA measured using the [employer] DXI Hybritech immunoassay should not be interpreted as absolute evidence of the presence or absence of disease. The PSA value should be used in conjunction with other pertinent clinical diagnostic procedures. The values obtained with different assay methods or kits cannot be used interchangeably. 17 Because ethnic data is not always readily available, this report includes an eGFR for both -Americans and non- Americans. The National Kidney Disease Education Program (NKDEP) does not endorse the use of the MDRD equation for patients that are not between the ages of 18 and 70, are , have extremes of body size, muscle mass, or nutritional status, or are non- or non-. According to the National Kidney Foundation, irrespective of diagnosis, the stage of the disease is based on the level of kidney function: Stage Description GFR(mL/min/1.73 m(2)) 1 Kidney damage with normal or decreased GFR 90 2 Kidney damage with mild decrease in GFR 60-89 3 Moderate decrease in GFR 30-59 4 Severe decrease in GFR 15-29 5 Kidney failure <15 (or dialysis) 18 Desirable <150 Borderline high 150-199 High 200-499 Very High >500 19 Desirable <200 Borderline high 200-239 High >239 20 Low <40 Desirable: 40-60 High: >60 21 Desirable: <100 mg/dL Near Optimal: 100-129 mg/dL Borderline High: 130-159 mg/dL High: 160-189 mg/dL Very High: >189 mg/dL 22 Therapeutic target for the treatment of diabetes Mellitus patients is <7% HBA1C, and in selective patients <6.0%.Please refer to [place] [employer] Diabetic care guidelines for further information. 23 [id number] FASTING 24 Because ethnic data is not always readily available, this report includes an eGFR for both -Americans and non- Americans. The National Kidney Disease Education Program (NKDEP) does not endorse the use of the MDRD equation for patients that are not between the ages of 18 and 70, are , have extremes of body size, muscle mass, or nutritional status, or are non- or non-. According to the National Kidney Foundation, irrespective of diagnosis, the stage of the disease is based on the level of kidney function: Stage Description GFR(mL/min/1.73 m(2)) 1 Kidney damage with normal or decreased GFR 90 2 Kidney damage with mild decrease in GFR 60-89 3 Moderate decrease in GFR 30-59 4 Severe decrease in GFR 15-29 5 Kidney failure <15 (or dialysis) 25 Desirable <150 Borderline high 150-199 High 200-499 Very High >500 26 Desirable <200 Borderline high 200-239 High >239 27 Low <40 Desirable: 40-60 High: >60 28 Desirable: <100 mg/dL Near Optimal: 100-129 mg/dL Borderline High: 130-159 mg/dL High: 160-189 mg/dL Very High: >189 mg/dL 29 Therapeutic target for the treatment of diabetes Mellitus patients is <7% HBA1C, and in selective patients <6.0%.Please refer to [place] [employer] Diabetic care guidelines for further information. 30 Serum levels of PSA measured using the [employer] DXI Hybritech immunoassay should not be interpreted as absolute evidence of the presence or absence of disease. The PSA value should be used in conjunction with other pertinent clinical diagnostic procedures. The values obtained with different assay methods or kits cannot be used interchangeably. 31 Because ethnic data is not always readily available, this report includes an eGFR for both -Americans and non- Americans. The National Kidney Disease Education Program (NKDEP) does not endorse the use of the MDRD equation for patients that are not between the ages of 18 and 70, are , have extremes of body size, muscle mass, or nutritional status, or are non- or non-. According to the National Kidney Foundation, irrespective of diagnosis, the stage of the disease is based on the level of kidney function: Stage Description GFR(mL/min/1.73 m(2)) 1 Kidney damage with normal or decreased GFR 90 2 Kidney damage with mild decrease in GFR 60-89 3 Moderate decrease in GFR 30-59 4 Severe decrease in GFR 15-29 5 Kidney failure <15 (or dialysis) 32 FASTING 33 Therapeutic target for the treatment of diabetes Mellitus patients is <7% HBA1C, and in selective patients <6.0%.Please refer to [place] [employer] Diabetic care guidelines for further information. 34 Desirable <150 Borderline high 150-199 High 200-499 Very High >500 35 Desirable <200 Borderline high 200-239 High >239 36 Low <40 Desirable: 40-60 High: >60 37 Desirable <100 Near Optimal 100-129 Borderline high 130-159 High 160-189 Very High >189 38 Because ethnic data is not always readily available, this report includes an eGFR for both -Americans and non- Americans. The National Kidney Disease Education Program (NKDEP) does not endorse the use of the MDRD equation for patients that are not between the ages of 18 and 70, are , have extremes of body size, muscle mass, or nutritional status, or are non- or non-. According to the National Kidney Foundation, irrespective of diagnosis, the stage of the disease is based on the level of kidney function: Stage Description GFR(mL/min/1.73 m(2)) 1 Kidney damage with normal or decreased GFR 90 2 Kidney damage with mild decrease in GFR 60-89 3 Moderate decrease in GFR 30-59 4 Severe decrease in GFR 15-29 5 Kidney failure <15 (or dialysis) [address] MAN 40 Serum levels of PSA measured using the [employer] DXI Hybritech immunoassay should not be interpreted as absolute evidence of the presence or absence of disease. The PSA value should be used in conjunction with other pertinent clinical diagnostic procedures. The values obtained with different assay methods or kits cannot be used interchangeably. 41 Because ethnic data is not always readily available, this report includes an eGFR for both -Americans and non- Americans. The National Kidney Disease Education Program (NKDEP) does not endorse the use of the MDRD equation for patients that are not between the ages of 18 and 70, are , have extremes of body size, muscle mass, or nutritional status, or are non- or non-. According to the National Kidney Foundation, irrespective of diagnosis, the stage of the disease is based on the level of kidney function: Stage Description GFR(mL/min/1.73 m(2)) 1 Kidney damage with normal or decreased GFR 90 2 Kidney damage with mild decrease in GFR 60-89 3 Moderate decrease in GFR 30-59 4 Severe decrease in GFR 15-29 5 Kidney failure <15 (or dialysis) 42 Serum levels of PSA measured using the [employer] DXI Hybritech immunoassay should not be interpreted as absolute evidence of the presence or absence of disease. The PSA value should be used in conjunction with other pertinent clinical diagnostic procedures. The values obtained with different assay methods or kits cannot be used interchangeably. 43 Because ethnic data is not always readily available, this report includes an eGFR for both -Americans and non- Americans. The National Kidney Disease Education Program (NKDEP) does not endorse the use of the MDRD equation for patients that are not between the ages of 18 and 70, are , have extremes of body size, muscle mass, or nutritional status, or are non- or non-. According to the National Kidney Foundation, irrespective of diagnosis, the stage of the disease is based on the level of kidney function: Stage Description GFR(mL/min/1.73 m(2)) 1 Kidney damage with normal or decreased GFR 90 2 Kidney damage with mild decrease in GFR 60-89 3 Moderate decrease in GFR 30-59 4 Severe decrease in GFR 15-29 5 Kidney failure <15 (or dialysis) 44 HDL Interpretation: Undesirable: High Risk: Less than 40 MG/DL Desirable: Low Risk: Greater than 60 MG/DL 45 LDL Interpretation: Low Risk Optimal Level: LDL Less than 100 MG/DL Near or Above Optimal: LDL 100-129 MG/DL Borderline High Risk: LDL 130-159 MG/DL High Risk: LDL 160-189 MG/DL Very High Risk: LDL Greater than 189 MG/DL 46 Therapeutic target for the treatment of diabetes Mellitus patients is <7% HBA1C, and in selective patients <6.0%.Please refer to [place] [employer] Diabetic care guidelines for further information. 47 Serum levels of PSA measured using the [employer] DXI Hybritech immunoassay should not be interpreted as absolute evidence of the presence or absence of disease. The PSA value should be used in conjunction with other pertinent clinical diagnostic procedures. The values obtained with different assay methods or kits cannot be used interchangeably. 48 * SERUM LEVELS OF PSA MEASURED USING THE [employer] ACCESS HYBRITECH IMMUNOASSAY SHOULD NOT BE INTERPRETED ABSOLUTE EVIDENCE OF THE PRESENCE OR ABSENCE OF DISEASE. THE PSA VALUE SHOULD BE USED IN CONJUNCTION WITH OTHER PERTINENT CLINICAL DIAGNOSTIC PROCEDURES. The values obtained with different assay methods or kits cannot be used interchangeably. 49 THERAPEUTIC TARGET FOR THE TREATMENT OF DIABETES MELLITUS PATIENTS IS <7% HBA1C, AND IN SELECTIVE PATIENTS <6.0%. PLEASE REFER TO [employer] DIABETIC CARE GUIDELINES FOR FURTHER INFORMATION. 50 * SERUM LEVELS OF PSA MEASURED USING THE [employer] ACCESS HYBRITECH IMMUNOASSAY SHOULD NOT BE INTERPRETED ABSOLUTE EVIDENCE OF THE PRESENCE OR ABSENCE OF DISEASE. THE PSA VALUE SHOULD BE USED IN CONJUNCTION WITH OTHER PERTINENT CLINICAL DIAGNOSTIC PROCEDURES. The values obtained with different assay methods or kits cannot be used interchangeably. 51 CHOLESTEROL INTERPRETATION: Desirable: Less than 200 MG/DL Borderline-High Risk: 200-239 MG/DL High-Risk: 240 MG/DL and over 52 HDL INTERPRETATION: Undesirable: High Risk: Less than 40 MG/DL Desirable: Low Risk: Greater than 60 MG/DL 53 LDL INTERPRETATION: Low Risk Optimal Level: LDL Less than 100 MG/DL Near or Above Optimal: LDL 100-129 MG/DL Borderline High Risk: LDL 130-159 MG/DL High Risk: LDL 160-189 MG/DL Very High Risk: LDL Greater than 189 MG/DL 54 Anion gap measurement may be of limited value in the presence of any alkalosis, especially in a combined acid base disorder. . 55 A metabolite of Naproxen, O-desmethylnaproxen, has been shown to interfere with the Jendrassik-Jake method for measuring total bilirubin. Samples from patients who have taken Naproxen have shown spurious elevation in total bilirubin levels. 56 Because ethnic data is not always readily available, this report includes an eGFR for both -Americans and non- Americans. The National Kidney Disease Education Program (NKDEP) does not endorse the use of the MDRD equation for patients that are not between the ages of 18 and 70, are , have extremes of body size, muscle mass, or nutritional status, or are non- or non-. According to the National Kidney Foundation, irrespective of diagnosis, the stage of the disease is based on the level of kidney function: Stage Description GFR(mL/min/1.73 m(2)) 1 Kidney damage with normal or decreased GFR 90 2 Kidney damage with mild decrease in GFR 60-89 3 Moderate decrease in GFR 30-59 4 Severe decrease in GFR 15-29 5 Kidney failure <15 (or dialysis) 57 THERAPEUTIC TARGET FOR THE TREATMENT OF DIABETES MELLITUS PATIENTS IS <7% HBA1C, AND IN SELECTIVE PATIENTS <6.0%. PLEASE REFER TO [employer] DIABETIC CARE GUIDELINES FOR FURTHER INFORMATION. 58 * SERUM LEVELS OF PSA MEASURED USING THE [employer] ACCESS HYBRITECH IMMUNOASSAY SHOULD NOT BE INTERPRETED ABSOLUTE EVIDENCE OF THE PRESENCE OR ABSENCE OF DISEASE. THE PSA VALUE SHOULD BE USED IN CONJUNCTION WITH OTHER PERTINENT CLINICAL DIAGNOSTIC PROCEDURES. 59 CHOLESTEROL INTERPRETATION: Desirable: Less than 200 MG/DL Borderline-High Risk: 200-239 MG/DL High-Risk: 240 MG/DL and over 60 HDL INTERPRETATION: Undesirable: High Risk: Less than 40 MG/DL Desirable: Low Risk: Greater than 60 MG/DL 61 LDL INTERPRETATION: Low Risk Optimal Level: LDL Less than 100 MG/DL Near or Above Optimal: LDL 100-129 MG/DL Borderline High Risk: LDL 130-159 MG/DL High Risk: LDL 160-189 MG/DL Very High Risk: LDL Greater than 189 MG/DL 62 CHOLESTEROL INTERPRETATION: Desirable: Less than 200 MG/DL Borderline-High Risk: 200-239 MG/DL High-Risk: 240 MG/DL and over 63 HDL INTERPRETATION: Undesirable: High Risk: Less than 40 MG/DL Desirable: Low Risk: Greater than 60 MG/DL 64 LDL INTERPRETATION: Low Risk Optimal Level: LDL Less than 100 MG/DL Near or Above Optimal: LDL 100-129 MG/DL Borderline High Risk: LDL 130-159 MG/DL High Risk: LDL 160-189 MG/DL Very High Risk: LDL Greater than 189 MG/DL 65 Anion gap measurement may be of limited value in the presence of any alkalosis, especially in a combined acid base disorder. . 66 A metabolite of Naproxen, O-desmethylnaproxen, has been shown to interfere with the Jendrassik-Grasston method for measuring total bilirubin. Samples from patients who have taken Naproxen have shown spurious elevation in total bilirubin levels. 67 Because ethnic data is not always readily available, this report includes an eGFR for both -Americans and non- Americans. The National Kidney Disease Education Program (NKDEP) does not endorse the use of the MDRD equation for patients that are not between the ages of 18 and 70, are , have extremes of body size, muscle mass, or nutritional status, or are non- or non-. According to the National Kidney Foundation, irrespective of diagnosis, the stage of the disease is based on the level of kidney function: Stage Description GFR(mL/min/1.73 m(2)) 1 Kidney damage with normal or decreased GFR 90 2 Kidney damage with mild decrease in GFR 60-89 3 Moderate decrease in GFR 30-59 4 Severe decrease in GFR 15-29 5 Kidney failure <15 (or dialysis) 68 * SERUM LEVELS OF PSA MEASURED USING THE [employer] ACCESS HYBRITECH IMMUNOASSAY SHOULD NOT BE INTERPRETED ABSOLUTE EVIDENCE OF THE PRESENCE OR ABSENCE OF DISEASE. THE PSA VALUE SHOULD BE USED IN CONJUNCTION WITH OTHER PERTINENT CLINICAL DIAGNOSTIC PROCEDURES. 69 * SERUM LEVELS OF PSA MEASURED USING THE [employer] ACCESS HYBRITECH IMMUNOASSAY SHOULD NOT BE INTERPRETED ABSOLUTE EVIDENCE OF THE PRESENCE OR ABSENCE OF DISEASE. THE PSA VALUE SHOULD BE USED IN CONJUNCTION WITH OTHER PERTINENT CLINICAL DIAGNOSTIC PROCEDURES. 70 * SERUM LEVELS OF PSA MEASURED USING THE [employer] ACCESS HYBRITECH IMMUNOASSAY SHOULD NOT BE INTERPRETED ABSOLUTE EVIDENCE OF THE PRESENCE OR ABSENCE OF DISEASE. THE PSA VALUE SHOULD BE USED IN CONJUNCTION WITH OTHER PERTINENT CLINICAL DIAGNOSTIC PROCEDURES. 71 ---- RUN DATE: 01/04/08 [facility] NMI LIVE PAGE 1 RUN TIME: 1631 Specimen Inquiry RUN USER: INTERFACE -- Name: CHAS TAPIA#: [id number] Status: REG REF Re01/03/08 Age/Sex: 62/M Unit#: [id number] Location: [facility] : 43 -- Specimen: [id number] Spec Date: 01/03/[address]: Jacoby Santos i, MD Spec Type: SURGICAL P Received: 01/03/08-2475 Copies to: Paulo Reyna MD SPECIMEN 1) LEFT LOBE PROSTATE BIOPSY APEX (APEX 3) 2) LEFT LOBE PROSTATE BIOPSY BASE (BASE 3) 3) RIGHT LOBE PROSTATE BIOPSY APEX (APEX 3) 4) RIGHT LOBE PROSTATE BIOPSY BASE (BASE 3) HISTORY PRE-OP DIAGNOSIS: Elevated PSA. POST-OP DIAGNOSIS: PSA 5.4 GROSS DESCRIPTION 1) The specimen is received in formalin labelled Chas Tapia, Left Prostate Lobe [place], and consists of three, bean, soft tissue cores measuring 1.7 cm., 1.9 cm., and 1.5 x 0.1 cm. Submitted entirely, one cassette. 2) The specimen is received in formalin labelled Chas Tapia, Left Prostate Lobe [place], and consists of three, bean, soft tissue cores measuring 1.7 cm., 1.7 cm., and 0.9 x 0.1 cm. Submitted entirely, one cassette. 3) The specimen is received in formalin labelled Chas Tapia, Right Prostate Lobe [place], and consists of three, bean, soft tissue cores measuring 1.0 cm., 1.7 cm., and 1.7 x 0.1 cm. Submitted entirely, one cassette. 4) The specimen is received in formalin labelled Chas Tapia, Right Prostate Lobe Base, and consists of three, bean, soft tissue cores measuring 1.8 cm., 1.7 cm., and 1.3 x 0.1 cm. Submitted entirely, one cassette. DIAGNOSIS 1) Prostate, left apex, core biopsies - A) Benign prostate tissue with partial atrophy and chronic inflammation. B) No evidence of neoplasia. -- DEPARTMENT OF PATHOLOGY, [address] [place] [address] [facility] Permit #[id number] Darian Hardin M.D. Director of Laboratories -- -- RUN DATE: 01/04/08 [facility] NMI LIVE PAGE 2 RUN TIME: 1631 Specimen Inquiry RUN USER: INTERFACE -- Name: CHAS TAPIA#: [id number] Status: REG REF Re01/03/08 Age/Sex: 62/M Unit#: [id number] Location: [facility] : 44 -- -- CONTINUED -- DIAGNOSIS (Continued) 2) Prostate, left base, core biopsies - A) Benign prostate tissue with partial atrophy and chronic inflammation. B) No evidence of neoplasia. 3) Prostate, right apex, core biopsies - A) Benign prostate tissue with partial atrophy and chronic inflammation. B) No evidence of neoplasia. 4) Prostate, right base, core biopsies - A) Benign prostate tissue with partial atrophy and chronic inflammation. B) No evidence of neoplasia. Signed Electronically by: DARIAN HARDIN MD 01/04/08 1631 -- -- DEPARTMENT OF PATHOLOGY, [address] [place] [address] [facility] Permit #[id number] Darian Hardin M.D. Director of Quantifind -- 72 About 25% of asymptomatic men older than 50 years and PSA values of 4-10 ng/mL have prostate cancer, compared with about 12% for those with PSA values of 2.0 to 3.9 ng/mL. Free PSA can help classify these men into subgroups with higher or lower cancer rates: Free/Total Ratio Cancer Rate PSA 4-10 ng/mL <0.10 >40% >0.25 <10% PSA 2.0-3.9 ng/mL <0.10 >30% >0.18 <10% The testing method is an immunoenzymatic assay manufactured by [employer] and performed on the SightCineI 800. Values obtained with different assay methods or kits may be different and cannot be used interchangeably. Test results cannot be interpreted as absolute evidence for the presence or absence of malignant disease. Test Performed by: [facility] Dpt of Lab Med and Pathology [address] [place] [address] [employer]: Hector Miner III, M.D. 73 * SERUM LEVELS OF PSA MEASURED USING THE MANDY EMILI ACCESS HYBRITECH IMMUNOASSAY SHOULD NOT BE INTERPRETED ABSOLUTE EVIDENCE OF THE PRESENCE OR ABSENCE OF DISEASE. THE PSA VALUE SHOULD BE USED IN CONJUNCTION WITH OTHER PERTINENT CLINICAL DIAGNOSTIC PROCEDURES. 74 Classification: Borderline High . 75 Classification: Low . 76 CALCULATED LDL APPROXIMATES THE VALUE OF A DIRECT LDL MEASUREMENT. Classification: Borderline High . 77 Anion gap measurement may be of limited value in the presence of any alkalosis, especially in a combined acid base disorder. . Procedures Date CPT Code Description Status Comment 03/27/2016 86579 EKG, at Least 12 Leads Completed w/Interpretation and Report 11/20/2015 39624 Sutures-Simple Repair Completed 02/02/2014 Colonoscopy Completed No evidence of neoplasia. Mild diverticulosis coli. Repeat 2018. (Has had many colonoscopies. 06/11 Fragments of tubular adenoma recovered. ) 09/03/2010 70769 EKG, at Least 12 Leads Completed w/Interpretation and Report 10/27/2007 82194 EKG, at Least 12 Leads Completed w/Interpretation and Report 06/04/2007 15841 Removal Of Foreign Body Completed Encounters Type Date Location Provider CPT E/M Dx Office Visit 09/28/2017 9:30a Main Office Paulo Reyna M.D. 30786 E78.00 R73.01 N40.1 Office Visit 03/30/2017 1:15p Main Office Paulo Reyna M.D. G0439 Z00.00 E78.00 R73.01 G31.84 Z23 Office Visit 01/12/2017 11:45a Main Office Paulo Reyna M.D. 84470 G31.84 Office Visit 03/27/2016 9:00a Main Office Paulo Reyna M.D. G0439 Z00.00 E78.0 R73.01 R00.2 Office Visit 01/17/2016 3:00p Main Office José Miguel Alvarado III, [facility] 26623 R10.9 Office Visit 11/27/2015 3:30p Main Office Paulo Reyna M.D. 50652 S61.002A Office Visit 01/29/2015 9:30a Main Office Roxanne Kathleen [facility] 41348 274.9 Office Visit 01/25/2015 10:45a Main Office Alvina Salinas [facility] 89790 959.01 Office Visit 07/31/2014 1:15p Main Office Paulo Reyna M.D. G0439 V70.0 790.21 599.70 272.0 796.2 V03.82 Office Visit 2012 8:45a Main Office Paulo Reyna M.D. G0439 V70.0 790.21 272.0 599.70 Office Visit 06/23/2012 10:15a Main Office Paulo Reyna M.D. 76590 719.46 Office Visit 02/10/2012 3:15p Main Office Paulo Reyna M.D. 44425 845.09 Office Visit 12/29/2011 11:15a Main Office GUSTABO Salazar 83365 845.09 Office Visit 12/14/2011 9:15a Main Office GUSTABO Salazar 10905 845.09 Office Visit 10/05/2011 9:00a Main Office Jaclyn Lockhart M.D. 49732 E906.4 Office Visit 09/11/2011 9:00a Main Office Paulo Reyna M.D. G0439 V70.0 272.0 790.21 599.70 Office Visit 07/29/2011 11:45a Main Office Paulo Reyna M.D. 85100 465.9 599.70 Office Visit 06/05/2011 10:00a Main Office Paulo Reyna M.D. 34809 724.2 680.1 302.72 Office Visit 03/13/2011 9:45a Main Office Paulo Reyna M.D. 00224 272.0 790.93 790.21 717.5 Office Visit 09/25/2010 10:15a Main Office Paulo Reyna M.D. 53178 717.5 Office Visit 09/03/2010 2:15p Main Office Paulo Reyna M.D. G0438 272.0 V70.0 272.0 790.93 599.70 790.21 278.00 Office Visit 12/19/2008 10:45a Main Office Paulo Reyna M.D. 63608 780.50 Office Visit 12/06/2008 3:15p Main Office Paulo Reyna M.D. 78195 780.50 361.30 Office Visit 10/04/2008 9:45a Main Office Paulo Reyna M.D. 49222 466.0 354.0 Office Visit 02/08/2008 4:30p Main Office Edu Brambila 69978 466.0 Office Visit 10/27/2007 1:15p Main Office Paulo Reyna M.D. 40566 V70.0 272.0 600.01 V06.8 Office Visit 09/20/2007 10:00a Main Office Paulo Reyna M.D. 46364 788.42 Office Visit 06/04/2007 10:30a Main Office Samantha Ornelas M.D. 76670 088.81 919.8 Office Visit 11/26/2006 12:00p Main Office Paulo Reyna M.D. 79528 796.2 Office Visit 05/05/2006 4:15p Main Office Paulo Reyna M.D. 58278 719.46 Office Visit 11/03/2005 3:15p Main Office Paulo Reyna M.D. 55599 465.9 719.41 Plan of Care Future Appointment(s):03/24/2018 8:00 am - Lab and Office Services at Main Molrou8003/31/2018 8:45 am - Paulo Reyna M.D. at Main Xxhlql1201/25/2018 - Paulo Reyna M.D.S22.42xD Multiple fx of ribs, left side, subs for fx w routn healComments:Doing OK with healingEncouraged to use pain medicines if needed especially to help with sleep.I71.2 Thoracic aortic aneurysm, without ruptureComments:Will repeat imaging in 6 months and then yearly if no change.
--- OUTSIDE RECORDS SUMMARY | 2018-02-06 11:00 | XMS REPORT ---
:1945 External Reference #:[id number] Author Organization [facility] Address [address] [place] [address] Phone [phone] Care Team Providers Name Role Phone Paulo Reyna M.D. 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 [address] PayID: [id number] [place] [id number] Medigap Part B Expires: 2014 Policy Number: Lifetime Benefit Chas Gutierrez [id number] [employer] PayID: [id number] [address] [address] [place] [address] Commercial Effective: 2014 Policy Number: [facility] Chas Tapia [id number] Expires: 2018 Group Number: [id number] 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 Cigarette Use former cigarette smoker [...] Hx Tablets 100mg 2tabs take 2 E906.4 Paulo Saldana 2016 - DR tablets po Axel, 01/12/ times one M.DJerome 2017 dose for the prevention of lyme disease Keflex 11/26/ Hx Capsules 500mg 10cap 1 twice a Paulo 2015 - day x 5 days Axel 03/26/ M.D. 2016 Doxycycline 03/09/ Hx Tablets 100mg 2tabs 2 tablet by Roxanne Reyes 2014 - mouth today Frannie, 07/31/ [employer]PER[employer]-C 2015 Doxycycline 10/04/ Hx Tablets 100mg 2tabs [...] CPT Code Status Date Vaccine Lot # [id number] Given 03/30/2017 Tdap (Adacel) [id number] 18241 Given 03/30/2017 Influenza Vaccine High Dose PF [id number] 21979 Given 07/31/2014 Prevnar-13 Pneumococcal Conjugate Vaccine [id number] 59244 Given 07/03/2009 Pneumovax 23 (PPSV23) 65+ years or high risk 2 to 1190Y 64 year old 82093 Given 10/27/2007 Tdap (Adacel) [id number] Vital Signs Date Vital Result Comment 01/25/2018 [...] Neg Urine Blood 250 High Neg Specific [place] 1.020 1.01-1.02 Comp Metabolic Panel 08/22/2012 Sodium [...] Redcell Distribution WDTH 14 % 10.5-15 1 [facility] Severe Sepsis and Septic Shock Management [...] levels of PSA measured using the Mandy [employer] DXI Hybritech immunoassay should not be interpreted [...] and in selective patients <6.0%.Please refer to [place] [employer] Diabetic care guidelines for further information. 10 Serum levels of PSA measured using the Mandy [employer] DXI Hybritech immunoassay should not be interpreted [...] 5 Kidney failure <15 (or dialysis) 12 [id number] 13 Normal Range 180 to 914 Indeterminate [...] levels of PSA measured using the Mandy [employer] DXI Hybritech immunoassay should not be interpreted [...] and in selective patients <6.0%.Please refer to [place] [employer] Diabetic care guidelines for further information. 23 [id number] FASTING 24 Because ethnic data is not [...] and in selective patients <6.0%.Please refer to [place] [employer] Diabetic care guidelines for further information. 30 Serum levels of PSA measured using the Mandy [employer] DXI Hybritech immunoassay should not be interpreted [...] and in selective patients <6.0%.Please refer to [place] [employer] Diabetic care guidelines for further [...] levels of PSA measured using the Mandy [employer] DXI Hybritech immunoassay should not be interpreted [...] Serum levels of PSA measured using the [employer] DXI Hybritech immunoassay should not be interpreted [...] and in selective patients <6.0%.Please refer to [place] [employer] Diabetic care guidelines for further information. 47 Serum levels of PSA measured using the [employer] DXI Hybritech immunoassay should not be interpreted as absolute evidence of the presence or absence of disease. The PSA value should be used in conjunction with other pertinent clinical diagnostic procedures. The values obtained with different assay methods or kits cannot be used interchangeably. 48 * SERUM LEVELS OF PSA MEASURED USING THE MANDY Sensorly ACCESS HYBRITECH IMMUNOASSAY SHOULD NOT BE INTERPRETED [...] IN SELECTIVE PATIENTS <6.0%. PLEASE REFER TO [place] [employer] DIABETIC CARE GUIDELINES FOR FURTHER INFORMATION. 50 * SERUM LEVELS OF PSA MEASURED USING THE MANDY Sensorly ACCESS HYBRITECH IMMUNOASSAY SHOULD NOT BE INTERPRETED [...] IN SELECTIVE PATIENTS <6.0%. PLEASE REFER TO [place] [employer] DIABETIC CARE GUIDELINES FOR FURTHER INFORMATION. 58 * SERUM LEVELS OF PSA MEASURED USING THE MANDY Sensorly ACCESS HYBRITECH IMMUNOASSAY SHOULD NOT BE INTERPRETED [...] has been shown to interfere with the [place] method for measuring total bilirubin. Samples from [...] LEVELS OF PSA MEASURED USING THE MANDY Sensorly ACCESS HYBRITECH IMMUNOASSAY SHOULD NOT BE INTERPRETED [...] LEVELS OF PSA MEASURED USING THE MANDY Sensorly ACCESS HYBRITECH IMMUNOASSAY SHOULD NOT BE INTERPRETED ABSOLUTE EVIDENCE OF THE PRESENCE OR ABSENCE OF DISEASE. THE PSA VALUE SHOULD BE USED IN CONJUNCTION WITH OTHER PERTINENT CLINICAL DIAGNOSTIC PROCEDURES. 71 ---- RUN DATE: 01/04/08 [facility] NMI LIVE PAGE 1 RUN TIME: 1631 Specimen Inquiry RUN USER: INTERFACE -- Name: CHAS TAPIA#: [id number] Status: REG REF Re01/03/08 Age/Sex: 62/M Unit#: [id number] Location: [facility] : 44 -- Specimen: [id number] STELLA Spec Date: 01/03/[address]: Jacoby Santos i, MD Spec Type: SURGICAL P Received: 01/03/08-1291 Copies to: Paulo Reyna MD SPECIMEN 1) LEFT LOBE PROSTATE BIOPSY APEX (APEX 3) 2) LEFT LOBE PROSTATE BIOPSY BASE (BASE 3) 3) RIGHT LOBE PROSTATE BIOPSY APEX (APEX 3) 4) RIGHT LOBE PROSTATE BIOPSY BASE (BASE 3) HISTORY PRE-OP DIAGNOSIS: Elevated PSA. POST-OP DIAGNOSIS: PSA 5.4 GROSS DESCRIPTION 1) The specimen is received in formalin labelled Chas Tapia, Left Prostate Lobe [place], and consists of three, bean, soft tissue [...] formalin labelled Chas Tapia, Right Prostate Lobe [place], and consists of three, bean, soft tissue [...] evidence of neoplasia. -- DEPARTMENT OF PATHOLOGY, [address] [place] [address] [facility] Permit #[id number] Darian Hardin M.D. Director of Laboratories -- -- RUN DATE: 01/04/08 [facility] NMI LIVE PAGE 2 RUN TIME: 1631 Specimen Inquiry RUN USER: INTERFACE -- Name: CHAS TAPIA#: [id number] Status: REG REF Re01/03/08 Age/Sex: 62/M Unit#: [id number] Location: [facility] : 43 -- -- CONTINUED -- [...] 01/04/08 1631 -- -- DEPARTMENT OF PATHOLOGY, [address] [place] [address] [facility] Permit #[id number] Darian Hardin M.D. Director of Tripeese -- 72 About 25% of asymptomatic men [...] method is an immunoenzymatic assay manufactured by [employer] and performed on the AudienceViewI 800. Values obtained with different assay methods or kits may be different and cannot be used interchangeably. Test results cannot be interpreted as absolute evidence for the presence or absence of malignant disease. Test Performed by: [facility] Dpt of Lab Med and Pathology [address] [place] [address] Hydrochloric Acid Operator: Hector Miner III, M.D. 73 * SERUM [...] Date CPT Code Description Status Comment 03/27/2016 28328 EKG, at Least 12 Leads Completed w/Interpretation and Report 11/20/2015 83005 Sutures-Simple Repair Completed 02/02/2014 Colonoscopy Completed No evidence of neoplasia. Mild diverticulosis coli. Repeat 2018. (Has had many colonoscopies. 06/11 Fragments of tubular adenoma recovered. ) 09/03/2010 81773 EKG, at Least 12 Leads Completed w/Interpretation and Report 10/27/2007 00989 EKG, at Least 12 Leads Completed w/Interpretation and Report 06/04/2007 86170 Removal Of Foreign Body Completed Encounters Type Date Location Provider CPT E/M Dx Office Visit 09/28/2017 9:30a Main Office Paulo Reyna M.D. 90456 E78.00 R73.01 N40.1 Office Visit 03/30/2017 1:15p Main Office Paulo Reyna M.D. G0439 Z00.00 E78.00 R73.01 G31.84 Z23 Office Visit 01/12/2017 11:45a Main Office Paulo Reyna M.D. 69457 G31.84 Office Visit 03/27/2016 9:00a Main Office Paulo Reyna M.D. G0439 Z00.00 E78.0 R73.01 R00.2 Office Visit 01/17/2016 3:00p Main Office José Miguel Alvarado III, [facility] 18724 R10.9 Office Visit 11/27/2015 3:30p Main Office Paulo Reyna M.D. 29104 S61.002A Office Visit 01/29/2015 9:30a Main Office Roxanne Kathleen [facility] 39225 274.9 Office Visit 01/25/2015 10:45a Main Office Alvina Salinas [facility] 51402 959.01 Office Visit 07/31/2014 1:15p Main Office Paulo Reyna M.D. G0439 V70.0 790.21 599.70 272.0 796.2 V03.82 Office Visit 2012 8:45a Main Office Paulo Reyna M.D. G0439 V70.0 790.21 272.0 599.70 Office Visit 06/23/2012 10:15a Main Office Paulo Reyna M.D. 40665 719.46 Office Visit 02/10/2012 3:15p Main Office Paulo Reyna M.D. 56077 845.09 Office Visit 12/29/2011 11:15a Main Office GUSTABO Salazar 80239 845.09 Office Visit 12/14/2011 9:15a Main Office GUSTABO Salazar 16388 845.09 Office Visit 10/05/2011 9:00a Main Office Jaclyn Lockhart M.D. 20391 E906.4 Office Visit 09/11/2011 9:00a Main Office Paulo Reyna M.D. G0439 V70.0 272.0 790.21 599.70 Office Visit 07/29/2011 11:45a Main Office Paulo Reyna M.D. 06962 465.9 599.70 Office Visit 06/05/2011 10:00a Main Office Paulo Reyna M.D. 54469 724.2 680.1 302.72 Office Visit 03/13/2011 9:45a Main Office Paulo Reyna M.D. 69638 272.0 790.93 790.21 717.5 Office Visit 09/25/2010 10:15a Main Office Paulo Reyna M.D. 79219 717.5 Office Visit 09/03/2010 2:15p Main Office Paulo Reyna M.D. G0438 272.0 V70.0 272.0 790.93 599.70 790.21 278.00 Office Visit 12/19/2008 10:45a Main Office Paulo Reyna M.D. 07001 780.50 Office Visit 12/06/2008 3:15p Main Office Paulo Reyna M.D. 30946 780.50 361.30 Office Visit 10/04/2008 9:45a Main Office Paulo Reyna M.D. 04318 466.0 354.0 Office Visit 02/08/2008 4:30p Main Office Edu Brambila 16947 466.0 Office Visit 10/27/2007 1:15p Main Office Paulo Reyna M.D. 00667 V70.0 272.0 600.01 V06.8 Office Visit 09/20/2007 10:00a Main Office Paulo Reyna M.D. 88244 788.42 Office Visit 06/04/2007 10:30a Main Office Samantha Ornelas M.D. 46815 088.81 919.8 Office Visit 11/26/2006 12:00p Main Office Paulo Reyna M.D. 07745 796.2 Office Visit 05/05/2006 4:15p Main Office Paulo Reyna M.D. 17702 719.46 Office Visit 11/03/2005 3:15p Main Office Paulo Reyna M.D. 13411 465.9 719.41 Plan of Care Future Appointment(s):03/24/2018 8:00 am - Lab and Office Services at Main Xvhdlr9703/31/2018 8:45 am - Paulo Reyna M.D. at Main Fjzvie8701/25/2018 - Paulo Reyna M.D.S22.42xD Multiple fx of ribs, left side, subs for fx w routn healComments:Doing OK with healingEncouraged to use pain medicines if needed especially to help with sleep.I71.2 Thoracic aortic aneurysm, without ruptureComments:Will repeat imaging in 6 months and then yearly if no change.
--- OUTSIDE RECORDS SUMMARY | 2018-02-06 11:01 | XMS REPORT ---
:1945 External Reference #:[id number] Author Organization [facility] Address [address] [place] [address] Phone [phone] Care Team Providers Name Role Phone Paulo Reyna M.D. Care Team Information Executive Marketing Assistant Unavailable Payers Type Date Identification Numbers Payment Provider Subscriber Medicare Primary Effective: Policy Number: Medicare - Bswny Chas Tapia 2007 [id number] [facility] PayID: [id number] [address] [place] [address] Medigap Part B Effective: Policy Number: [facility] Chas Gutierrez 2018 [id number] [place] Group Name: [place] [address] [address] PayID: [id number] [place] [address] Medigap Part B Expires: 2014 Policy Number: Lifetime Benefit Chas Gutierrez [id number] Solution Latini PayID: [id number] [address] [address] [place] [address] Commercial Effective: 2014 Policy Number: [facility] Chas Tapia [id number] Expires: 2018 Group Number: [id number] 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 Doxycycline 10/04/ Hx Tablets 100mg 2tabs [...] 2012 Travatan Z / Hx Solution 0.004% Salazar, 0000 - Primo MJerome, 2016 Glucosamine / Hx Capsules Unknown Chondroitin 0000 - Complex 2017 Immunizations CPT Code Status Date Vaccine Lot # [id number] Given 03/30/2017 Tdap (Adacel) [id number] 54905 Given 03/30/2017 Influenza Vaccine High Dose PF [id number] 43216 Given 07/31/2014 Prevnar-13 Pneumococcal Conjugate Vaccine [id number] 29050 Given 07/03/2009 Pneumovax 23 (PPSV23) 65+ years or high risk 2 to 1190Y 63 year old 30351 Given 10/27/2007 Tdap (Adacel) [id number] Vital Signs Date Vital Result Comment 01/21/2018 Weight 213.00 lb Weight in kg's [...] Neg Urine Blood 250 High Neg Specific [place] 1.020 1.01-1.02 Comp Metabolic Panel 08/22/2012 Sodium [...] Redcell Distribution WDTH 14 % 10.5-15 1 [place] Severe Sepsis and Septic Shock Management Bundle [...] levels of PSA measured using the Mandy Smart Pipe DXI Hybritech immunoassay should not be interpreted [...] and in selective patients <6.0%.Please refer to [place] [employer] Diabetic care guidelines for further information. 10 Serum levels of PSA measured using the Mandy Daphnie DXI Hybritech immunoassay should not be interpreted [...] 5 Kidney failure <15 (or dialysis) 12 [id number] 13 Normal Range 180 to 914 Indeterminate [...] levels of PSA measured using the Mandy Daphnie DXI Hybritech immunoassay should not be interpreted [...] and in selective patients <6.0%.Please refer to [place] [employer] Diabetic care guidelines for further information. 23 [id number] FASTING 24 Because ethnic data is not [...] and in selective patients <6.0%.Please refer to [place] [employer] Diabetic care guidelines for further information. 30 Serum levels of PSA measured using the [employer] DXI Hybritech immunoassay should not be interpreted [...] and in selective patients <6.0%.Please refer to [place] [employer] Diabetic care guidelines for further [...] Serum levels of PSA measured using the [employer] DXI Hybritech immunoassay should not be interpreted [...] Serum levels of PSA measured using the [employer] DXI Hybritech immunoassay should not be interpreted [...] and in selective patients <6.0%.Please refer to [place] [employer] Diabetic care guidelines for further information. 47 Serum levels of PSA measured using the [employer] DXI Hybritech immunoassay should not be interpreted as absolute evidence of the presence or absence of disease. The PSA value should be used in conjunction with other pertinent clinical diagnostic procedures. The values obtained with different assay methods or kits cannot be used interchangeably. 48 * SERUM LEVELS OF PSA MEASURED USING THE MANDY Drinks4-you ACCESS HYBRITECH IMMUNOASSAY SHOULD NOT BE INTERPRETED [...] IN SELECTIVE PATIENTS <6.0%. PLEASE REFER TO [place] [employer] DIABETIC CARE GUIDELINES FOR FURTHER INFORMATION. 50 * SERUM LEVELS OF PSA MEASURED USING THE MANDY Drinks4-you ACCESS HYBRITECH IMMUNOASSAY SHOULD NOT BE INTERPRETED [...] has been shown to interfere with the [place] method for measuring total bilirubin. Samples from [...] IN SELECTIVE PATIENTS <6.0%. PLEASE REFER TO [place] [employer] DIABETIC CARE GUIDELINES FOR FURTHER INFORMATION. 58 * SERUM LEVELS OF PSA MEASURED USING THE MANDY Drinks4-you ACCESS HYBRITECH IMMUNOASSAY SHOULD NOT BE INTERPRETED [...] LEVELS OF PSA MEASURED USING THE MANDY Drinks4-you ACCESS HYBRITECH IMMUNOASSAY SHOULD NOT BE INTERPRETED ABSOLUTE EVIDENCE OF THE PRESENCE OR ABSENCE OF DISEASE. THE PSA VALUE SHOULD BE USED IN CONJUNCTION WITH OTHER PERTINENT CLINICAL DIAGNOSTIC PROCEDURES. 69 * SERUM LEVELS OF PSA MEASURED USING THE MANDY DAPHNIE ACCESS HYBRITECH IMMUNOASSAY SHOULD NOT BE INTERPRETED ABSOLUTE EVIDENCE OF THE PRESENCE OR ABSENCE OF DISEASE. THE PSA VALUE SHOULD BE USED IN CONJUNCTION WITH OTHER PERTINENT CLINICAL DIAGNOSTIC PROCEDURES. 70 * SERUM LEVELS OF PSA MEASURED USING THE MANDY DAPHNIE ACCESS HYBRITECH IMMUNOASSAY SHOULD NOT BE INTERPRETED ABSOLUTE EVIDENCE OF THE PRESENCE OR ABSENCE OF DISEASE. THE PSA VALUE SHOULD BE USED IN CONJUNCTION WITH OTHER PERTINENT CLINICAL DIAGNOSTIC PROCEDURES. 71 ---- RUN DATE: 01/04/08 [facility] NMI LIVE PAGE 1 RUN TIME: 1631 Specimen Inquiry RUN USER: INTERFACE -- Name: CHAS TAPIA#: [id number] Status: REG REF Re01/03/08 Age/Sex: 62/M Unit#: [id number] Location: [facility] : 44 -- Specimen: [id number] Spec Date: 01/03/[address]: Jacoby Santos i, MD Spec Type: SURGICAL P Received: 01/03/08-3739 Copies to: Paulo Reyna MD SPECIMEN 1) LEFT LOBE PROSTATE BIOPSY APEX (APEX 3) 2) LEFT LOBE PROSTATE BIOPSY BASE (BASE 3) 3) RIGHT LOBE PROSTATE BIOPSY APEX (APEX 3) 4) RIGHT LOBE PROSTATE BIOPSY BASE (BASE 3) HISTORY PRE-OP DIAGNOSIS: Elevated PSA. POST-OP DIAGNOSIS: PSA 5.4 GROSS DESCRIPTION 1) The specimen is received in formalin labelled Chas Tapia, Left Prostate Lobe [place], and consists of three, bean, soft tissue [...] formalin labelled Chas Tapia, Right Prostate Lobe [place], and consists of three, bean, soft tissue [...] evidence of neoplasia. -- DEPARTMENT OF PATHOLOGY, [address] [place] [address] [facility] Permit #[id number] Darian Hardin M.D. Director of Laboratories -- -- RUN DATE: 01/04/08 [facility] NMI LIVE PAGE 2 RUN TIME: 1631 Specimen Inquiry RUN USER: INTERFACE -- Name: CHAS TAPIA Status: REG REF Re01/03/08 Age/Sex: 62/M Unit#: [id number] Location: [facility] : 44 -- -- CONTINUED -- DIAGNOSIS [...] 01/04/08 1631 -- -- DEPARTMENT OF PATHOLOGY, [address] [place] [address] [facility] Permit #[id number] Darian Hardin M.D. Director of [employer] -- 72 About 25% of asymptomatic men [...] method is an immunoenzymatic assay manufactured by [employer] and performed on the Versartis DXI 800. Values obtained with different assay methods or kits may be different and cannot be used interchangeably. Test results cannot be interpreted as absolute evidence for the presence or absence of malignant disease. Test Performed by: [facility] D[facility] of Lab Med and Pathology [address] [place] [address] Forestry Pilot: Hector Miner III, M.D. 73 * SERUM LEVELS OF PSA MEASURED USING THE MANDY Drinks4-you ACCESS HYBRITECH IMMUNOASSAY SHOULD NOT BE INTERPRETED [...] Date CPT Code Description Status Comment 03/27/2016 39878 EKG, at Least 12 Leads Completed w/Interpretation and Report 11/20/2015 29949 Sutures-Simple Repair Completed 02/02/2014 Colonoscopy Completed No evidence of neoplasia. Mild diverticulosis coli. Repeat 2018. (Has had many colonoscopies. 06/11 Fragments of tubular adenoma recovered. ) 09/03/2010 57486 EKG, at Least 12 Leads Completed w/Interpretation and Report 10/27/2007 73231 EKG, at Least 12 Leads Completed w/Interpretation and Report 06/04/2007 32874 Removal Of Foreign Body Completed Encounters Type Date Location Provider CPT E/M Dx Office Visit 09/28/2017 9:30a Main Office Paulo Reyna M.D. 82123 E78.00 R73.01 N40.1 Office Visit 03/30/2017 1:15p Main Office Paulo Reyna M.D. G0439 Z00.00 E78.00 R73.01 G31.84 Z23 Office Visit 01/12/2017 11:45a Main Office Paulo Reyna M.D. 27883 G31.84 Office Visit 03/27/2016 9:00a Main Office Paulo Reyna M.D. G0439 Z00.00 E78.0 R73.01 R00.2 Office Visit 01/17/2016 3:00p Main Office José Miguel Ballalireza [place], [facility] [address]18 R10.9 Office Visit 11/27/2015 3:30p Main Office Paulo Reyna M.D. 98698 S61.002A Office Visit 01/29/2015 9:30a Main Office Roxanne Kathleen [facility] [address] 274.9 Office Visit 01/25/2015 10:45a Main Office Alvina Salinas [facility] [address] 959.01 Office Visit 07/31/2014 1:15p Main Office Paulo Reyna M.D. G0439 V70.0 790.21 599.70 272.0 796.2 V03.82 Office Visit 2012 8:45a Main Office Paulo Reyna M.D. G0439 V70.0 790.21 272.0 599.70 Office Visit 06/23/2012 10:15a Main Office Paulo Reyna M.D. 27147 719.46 Office Visit 02/10/2012 3:15p Main Office Paulo Reyna M.D. 72583 845.09 Office Visit 12/29/2011 11:15a Main Office Roxanne Kathleen [facility] 84598 845.09 Office Visit 12/14/2011 9:15a Main Office Roxanne Kathleen [facility] 44403 845.09 Office Visit 10/05/2011 9:00a Main Office Jaclyn Lockhart M.D. 65764 E906.4 Office Visit 09/11/2011 9:00a Main Office Paulo Reyna M.D. G0439 V70.0 272.0 790.21 599.70 Office Visit 07/29/2011 11:45a Main Office Paulo Reyna M.D. 56753 465.9 599.70 Office Visit 06/05/2011 10:00a Main Office Paulo Reyna M.D. 73492 724.2 680.1 302.72 Office Visit 03/13/2011 9:45a Main Office Paulo Reyna M.D. 09062 272.0 790.93 790.21 717.5 Office Visit 09/25/2010 10:15a Main Office Paulo Reyna M.D. 26252 717.5 Office Visit 09/03/2010 2:15p Main Office Paulo Reyna M.D. G0438 272.0 V70.0 272.0 790.93 599.70 790.21 278.00 Office Visit 12/19/2008 10:45a Main Office Paulo Reyna M.D. 90825 780.50 Office Visit 12/06/2008 3:15p Main Office Paulo Reyna M.D. 74425 780.50 361.30 Office Visit 10/04/2008 9:45a Main Office Paulo Reyna M.D. 91550 466.0 354.0 Office Visit 02/08/2008 4:30p Main Office Edu Brambila 52783 466.0 Office Visit 10/27/2007 1:15p Main Office Paulo Reyna M.D. 62041 V70.0 272.0 600.01 V06.8 Office Visit 09/20/2007 10:00a Main Office Paulo Reyna M.D. 79745 788.42 Office Visit 06/04/2007 10:30a Main Office Samantha Ornelas M.D. 05598 088.81 919.8 Office Visit 11/26/2006 12:00p Main Office Paulo Reyna M.D. 30312 796.2 Office Visit 05/05/2006 4:15p Main Office Paulo Reyna M.D. 85768 719.46 Office Visit 11/03/2005 3:15p Main Office Paulo Reyna M.D. 75636 465.9 719.41 Plan of Care Future Appointment(s):01/25/2018 11:45 am - Paulo Reyna M.D. at Main Cmnuyn8103/24 8:00 am - Lab and Office Services at Main Rqrqre2803/31/2018 8:45 am - Paulo Reyna M.D. at Main Jcoidg9301/21/2018 - Tony Mata, MDS22.42xD Multiple fx of ribs, left side, subs for fx w routkoby Gomesw Medication:Vitamin C 500 mgComments:He has suffered a major injury. 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 all this will increasehis risk of CRPS. I think his arm pain and cold hand are more consistent with CRPS rather than a vascular issue.Vit C for CRPS prevention. If his arm symptoms worsen instead of improving, he should seea pain specialist right away.I71.2 Thoracic aortic aneurysm, without ruptureComments:Currently at 4-1/2 cm. No previous studies to know if or how much it's growing. Should have a 6 month followup. Will need to see vascular surgery once he is at 5 cm or close to it.
[2018-02-06] MEDS ORDERED: Clindamycin 600 MG IVPREMIX(* 600 MG/50 ML SDV IV ONE (12:17)
[2018-02-06] MEDS ORDERED: Dexamethasone IV* 4 MG/ML 1 ML (4 MG) IV SLOW PU ONE (12:17)
[2018-02-06] MEDS ORDERED: Ketorolac INJ* 30 MG/ML 1 ML VIAL IV PUSH ONE (12:18)
[2018-02-06 12:39] LABS: ABS Basophils 0.1 10^3/ul (0-0.2); ABS Eosinophils 0.2 10^3/ul (0-0.6); ABS Lymphocytes 1.7 10^3/ul (1.0-4.8); ABS Monocytes 0.8 10^3/ul (0-0.8); ABS Nucleated RBC 0 10^3/ul; Eosinophil % 2.1 % (0-6); Hematocrit 42 % (42-52); Hemoglobin 14.2 g/dl (14.0-18.0); Lymphocyte % 15.9 % (25-47); Mean Corpuscular HGB Conc 34 g/dl (31-36); Mean Corpuscular Hemoglobin 30 pg (27-31); Mean Corpuscular Volume 89 fL (80-94); Mean Platelet Volume 8.4 um3 (7.4-10.4); Nucleated Red Blood Cells % 0; Platelet Count 254 10^3/ul (150-450); Red Blood Count 4.68 10^6/ul (4.00-5.40); Red Cell Distribution Width 14 % (10.5-15); White Blood Count 10.8 10^3/ul (3.5-10.8)
[2018-02-06 12:56] LABS: EGFR Non-African American 82.7 (>60)
[2018-02-06] MEDS ORDERED: D5NS 0.9% 1000 ML BAG* 1,000 ML IV SCH (13:00)
--- NOTE | 2018-02-06 13:19 | RAD ---
Indication: Fractured ribs, chest pain. 2 views of the chest including dual energy PA views are reviewed. No mediastinal shift is noted. Heart is normal size and configuration. Hyperinflated lung kaufman are noted. No pneumothorax is noted. Fracture of the left sixth, seventh, eighth and ninth rib posteriorly. No changes noted since previous exam. IMPRESSION: Fractures of left sixth seventh eighth and ninth ribs. No pneumothorax is noted.
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
[2018-02-06 16:11] VITALS: BP 112/64
== END 2018-02-06 15:00 | disposition home or self-care (01) ==
LOC: ED 10:32
DX: J36 Peritonsillar abscess (principal); S22.42XA Multiple fractures of ribs, left side, initial encounter for closed fracture; V29.9XXA Motorcycle rider (driver) (passenger) injured in unspecified traffic accident, initial encounter; Y92.9 Unspecified place or not applicable; R42 Dizziness and giddiness; Z87.891 Personal history of nicotine dependence
CPT/HCPCS: 36415; 71046; 80053; 84484; 85025; 85652; 86140; 87651; 96374; 96375; 99283; J1100; J1885

== ENCOUNTER 2018-11-09 06:54 | Day surgery (SDC) | payer MEDICARE, BC ==
[~2018-11-09 06:54] MED LIST: Acetaminophen TAB* 325 MG PO PRN; Buffered Lidocaine 1% SYRIN* 1 ML/SYRINGE INTRADERM ONE
[2018-11-09 09:35] VITALS: BP 133/73
--- NOTE | 2018-11-09 10:40 | OP ---
OPERATIVE NOTE: DATE OF OPERATION: 11/09/18 DATE OF : 43 SURGEON: Vinh Coley M.D. PREOPERATIVE DIAGNOSES: Cataract, right eye and glaucoma, right eye. POSTOPERATIVE DIAGNOSES: Cataract right eye and glaucoma, right eye. OPERATIVE PROCEDURE: Extracapsular cataract extraction with IOL implant, right eye and iStent, right eye. PROCEDURE: The patient was brought to the operating room after being given 1/2% Alcaine with epineph rine drops in the preoperative area. The eye was prepped and draped in the usual sterile fashion. S terile drape and eyelid speculum were placed. Again, topical 1/2% Alcaine with epinephrine was given . A paracentesis incision was made at the 9 o'clock position with the No.75 blade. Clear cornea inc ision 2.2 x 2.2-mm was created at the 12 o'clock position starting at the anterior limbus using the 2 .2-mm keratome. The anterior chamber was irrigated with 0.4 mL of 1% non-preservative intracameral l idocaine and filled with DisCoVisc. A capsulorrhexis was completed using the cystotome and the Utrat a forceps. Hydrodissection was performed with balanced salt solution. The lens nucleus was removed w ith the Phacoemulsification handpiece without incident. Cortex was removed with the irrigation-aspir ation handpiece. The capsular bag was re-inflated using DisCoVisc and an SN6AT 15.5 confirmed with O RA and implant was inserted with the shooter, followed by iStent inject at the 1 o'clock and 4 o'cloc k positions without difficulty with shooter. The irrigation-aspiration handpiece was used to remove all residual DisCoVisc. The eye was refilled with balanced salt solution and the wound checked and f ound to be watertight. Topical Maxitrol drops were given. [id number]/[facility] #: [id number]
[2018-11-09] MEDS ORDERED: acetaZOLAMIDE TAB* 250 MG ONE (13:47)
[2018-11-09] MEDS ORDERED: Ketorolac 0.5% OPHTH (NF) 0.5 % 5 ML BTL ONE (13:47)
[2018-11-09] MEDS ORDERED: Lidocaine 2% EPI 1:200000 MPF*10-20 ML VIAL ONE (13:47)
[2018-11-09] MEDS ORDERED: Povidone Iodine 5% OPTH* 30 ML BTL ONE (13:47)
[2018-11-09] MEDS ORDERED: Cyclopentolate 1% OPTH.SOL* 2 ML BTL ONE (13:47)
[2018-11-09] MEDS ORDERED: Lidocaine 1%* 5 ML VIAL ONE (13:47)
[2018-11-09] MEDS ORDERED: Proparacaine 0.5% OPHTH.SOL* 15 ML BTL ONE (13:47)
[2018-11-09] MEDS ORDERED: Phenylephrine OPHTH SOL 2.5%* 2 ML ONE (13:47)
[2018-11-09] MEDS ORDERED: Neomycin/Polymy/Dex OPTH.SUSP* MAXITROL 0.1% 5 ML ONE (13:47)
== END 2018-11-09 09:27 | disposition home or self-care (01) ==
LOC: OREAST 06:54
PROVIDERS: ATTEND Specialist
DX: H25.11 Age-related nuclear cataract, right eye (principal); H40.1121 Primary open-angle glaucoma, left eye, mild stage; Z87.891 Personal history of nicotine dependence; M19.90 Unspecified osteoarthritis, unspecified site; E78.5 Hyperlipidemia, unspecified
CPT/HCPCS: A9270-GY; C1783; V2787

== ENCOUNTER 2018-11-16 08:52 | Day surgery (SDC) | payer MEDICARE, BC ==
[2018-11-16] MEDS ORDERED: Midazolam* 1 MG/ML 2 ML VIAL (2 MG) ONE (10:59)
[2018-11-16] MEDS ORDERED: Ketorolac 0.5% OPHTH (NF) 0.5 % 5 ML BTL ONE (11:27)
[2018-11-16] MEDS ORDERED: acetaZOLAMIDE TAB* 250 MG ONE (11:27)
[2018-11-16] MEDS ORDERED: Lidocaine 1%* 5 ML VIAL ONE (11:27)
[2018-11-16] MEDS ORDERED: Proparacaine 0.5% OPHTH.SOL* 15 ML BTL ONE (11:27)
[2018-11-16] MEDS ORDERED: Povidone Iodine 5% OPTH* 30 ML BTL ONE (11:27)
[2018-11-16] MEDS ORDERED: Neomycin/Polymy/Dex OPTH.SUSP* MAXITROL 0.1% 5 ML ONE (11:27)
[2018-11-16] MEDS ORDERED: Phenylephrine OPHTH SOL 2.5%* 2 ML ONE (11:27)
[2018-11-16] MEDS ORDERED: Cyclopentolate 1% OPTH.SOL* 2 ML BTL ONE (11:27)
[2018-11-16] MEDS ORDERED: Lidocaine 2% EPI 1:200000 MPF*10-20 ML VIAL ONE (11:27)
[2018-11-16 12:15] VITALS: BP 129/61
--- NOTE | 2018-11-16 13:56 | OP ---
OPERATIVE NOTE: DATE OF OPERATION: 11/16/18 DATE OF : 43 SURGEON: Vinh Coley M.D. ANESTHESIA: Local MAC. PREOPERATIVE DIAGNOSIS: Cataract, left eye; primary open-angle glaucoma, left eye. POSTOPERATIVE DIAGNOSIS: Cataract, left eye; primary open-angle glaucoma, left eye. OPERATIVE PROCEDURE: Extracapsular cataract extraction with intraocular lens and iStent, left eye. COMPLICATIONS: None. PROCEDURE: The patient was brought to the operating room after being given 1/2% Alcaine with epineph rine drops in the preoperative area. The eye was prepped and draped in the usual sterile fashion. S terile drape and eyelid speculum were placed. Again, topical 1/2% Alcaine with epinephrine was given . A paracentesis incision was made at the 3 o'clock position with the No.75 blade. Clear cornea inc ision 2.2 x 2.2-mm was created at the 6 o'clock position starting at the anterior limbus using the 2. 2-mm keratome. The anterior chamber was irrigated with 0.4 mL of 1% non-preservative intracameral li docaine and filled with DisCoVisc. A capsulorrhexis was completed using the cystotome and the Utrata forceps. Hydrodissection was performed with balanced salt solution. The lens nucleus was removed wi th the Phacoemulsification handpiece without incident. Cortex was removed with the irrigation-aspira tion handpiece. The capsular bag was re-inflated using DisCoVisc and an SN6AT4 16.5 implant was inse rted with the shooter and confirmed with ORA oriented to the 162 degree axis followed by an iStent in ject inserted at the 10 o'clock and 8 o'clock position. The irrigation-aspiration handpiece was used to remove all residual DisCoVisc. The eye was refilled with balanced salt solution and the wound ch ecked and found to be watertight. Topical Maxitrol drops were given. [id number]/[facility] #: [id number]
== END 2018-11-16 12:05 | disposition home or self-care (01) ==
LOC: OREAST 08:52
PROVIDERS: ATTEND Specialist
DX: H25.12 Age-related nuclear cataract, left eye (principal); H40.1121 Primary open-angle glaucoma, left eye, mild stage; Z87.891 Personal history of nicotine dependence; E78.5 Hyperlipidemia, unspecified; G47.33 Obstructive sleep apnea (adult) (pediatric)
CPT/HCPCS: A9270-GY; C1783; J2250; V2787

== ENCOUNTER 2021-04-27 11:33 | Inpatient (IN) ==
[2021-04-27] MEDS ORDERED: NS 0.9% 1000 ml BAG 1,000 ML IV ONE (11:50)
[2021-04-27 12:20] LABS: ABS Lymphocytes 0.7 10^3/ul (1.0-4.8); ABS Monocytes 0.2 10^3/ul (0-0.8); ABS Neutrophils 5.9 10^3/ul (1.5-7.7); Eosinophil % 0.5 %; Hematocrit 40 % (42-52); Hemoglobin 13.5 g/dL (14.0-18.0); Lymphocyte % 9.9 %; Mean Corpuscular HGB Conc 34 g/dL (31-36); Mean Corpuscular Hemoglobin 31 pg (27-31); Mean Corpuscular Volume 92 fL (80-94); Mean Platelet Volume 8.9 fL (7.4-10.4); Platelet Count 168 10^3/uL (150-450); Red Cell Distribution Width 14 % (10-15); White Blood Count 6.8 10^3/uL (3.5-10.8)
[2021-04-27] MEDS ORDERED: Iodixanol (CONTRAST) 320 MG/ML 100 ML SDV IV ONE (12:20)
[2021-04-27 12:57] LABS: Activated Partial Thrombo Time 31.9 seconds (26.0-38.0); INR 0.96 (0.86-1.15)
[2021-04-27] MEDS ORDERED: levETIRAcetam 1000MG IVPREMIX 1,000 MG/100 ML BAG IVPB ONE (13:01)
[2021-04-27 13:02] LABS: Albumin 3.9 g/dL (3.2-5.2); Albumin/Globulin Ratio 1.3 (1-3); Calcium 8.9 mg/dL (8.6-10.3); HDL Cholesterol 34.9 mg/dL; Total Bilirubin 0.7 mg/dL (0.2-1.0); Total Protein 6.9 g/dL (6.4-8.9)
[2021-04-27 13:04] LABS: Troponin I 0.01 ng/mL (<0.03)
[2021-04-27 13:39] LABS: PCO2 Arterial 44 mmHg (35-45); PO2 Arterial 82 mmHg (80-100)
[2021-04-27] MEDS ORDERED: niCARdipine 0.1MG/ML IVPREMIX 20 MG/200 ML BAG IV SCH (14:00)
[2021-04-27 14:49] LABS: Urine Appearance Cloudy; Urine Bilirubin Negative (Negative); Urine Blood 2+ (Negative); Urine Color Yellow; Urine Glucose Negative (Negative); Urine Ketones Negative (Negative); Urine Nitrite Negative (Negative); Urine Protein Negative (Negative); Urine Specific Gravity 1.043 (1.002-1.030); Urine Urobilinogen Negative (Negative)
[2021-04-27 15:06] LABS: Urine Bacteria Absent (Absent); Urine Red Blood Cell 3+(>10/hpf) (Absent); Urine White Blood Cell Trace(0-5/hpf) (Absent); Urine Yeast Present (Absent)
[2021-04-27] MEDS ORDERED: Iohexol 300 (CONTRAST) 10 ML SDV IV ONE (16:07)
[2021-04-27] MEDS ORDERED: Lorazepam PYXIS KEY ONE ×4 (16:10→16:58)
[2021-04-27] MEDS ORDERED: Haloperidol 5 mg/ml SDV IV/IM 5 MG/ML AMP ONE (16:10)
[2021-04-27] MEDS ORDERED: LORazepam 2 mg VIAL 1 ml IV PUSH ONE ×2 (16:11→16:16)
[2021-04-27] MEDS ORDERED: LORazepam 2 mg VIAL 1 ml ONE ×3 (16:11→16:33)
[2021-04-27] MEDS: Famotidine IV 10 MG/ML 2 ml VIAL (20 mg) IV SLOW PU SCH (20:36)
[2021-04-27] MEDS: Acetaminophen IV 1 GM/100ML 100 ML IV SCH (20:37)
[2021-04-27] MEDS: Latanoprost 0.005% 2.5 ml BTL BOTH EYES SCH (20:50)
[2021-04-28] MEDS: levETIRAcetam 500 MG IVPREMIX 500 MG/100 ML BAG IV SCH ×2 (02:29→16:20)
[2021-04-28] MEDS: Acetaminophen IV 1 GM/100ML 100 ML IV SCH ×3 (07:51→20:37)
[2021-04-28] MEDS: Timolol 0.5% OPTH.SOL BTL BOTH EYES SCH (07:51)
[2021-04-28] MEDS: Famotidine IV 10 MG/ML 2 ml VIAL (20 mg) IV SLOW PU SCH ×2 (07:51→20:36)
[2021-04-28 08:20] LABS: ABS Eosinophils 0.2 10^3/ul (0-0.6); ABS Lymphocytes 1.2 10^3/ul (1.0-4.8); ABS Monocytes 0.9 10^3/ul (0-0.8); ABS Neutrophils 7.5 10^3/ul (1.5-7.7); Eosinophil % 1.5 %; Hematocrit 40 % (42-52); Hemoglobin 13.7 g/dL (14.0-18.0); Lymphocyte % 12.3 %; Mean Corpuscular HGB Conc 34 g/dL (31-36); Mean Corpuscular Hemoglobin 31 pg (27-31); Mean Corpuscular Volume 91 fL (80-94); Mean Platelet Volume 8.5 fL (7.4-10.4); Nucleated Red Blood Cells % 0.1; Platelet Count 173 10^3/uL (150-450); Red Blood Count 4.44 10^6 /uL (4.18-5.48); Red Cell Distribution Width 14 % (10-15); White Blood Count 9.7 10^3/uL (3.5-10.8)
[2021-04-28 08:35] LABS: Blood Urea Nitrogen 13 mg/dL (6-24); CO2 Carbon Dioxide 26 mmol/L (22-32); Calcium 8.2 mg/dL (8.6-10.3); Chloride 107 mmol/L (101-111); Glucose 91 mg/dL (70-100); Sodium 139 mmol/L (135-145)
[2021-04-28 08:57] LABS: Anion Gap 6 mmol/L (2-11)
[2021-04-28] MEDS: NS 0.9% 1000 ml BAG 1,000 ML IV SCH (13:38)
[2021-04-28] MEDS: niCARdipine 0.1MG/ML IVPREMIX 20 MG/200 ML BAG IV SCH ×2 (14:40→18:12)
[2021-04-28] MEDS ORDERED: Gadoteridol (CONTRAST) 279.3 MG/ML 10 ML IV ONE (15:18)
[2021-04-28] MEDS: Latanoprost 0.005% 2.5 ml BTL BOTH EYES SCH (20:37)
[2021-04-29] MEDS: levETIRAcetam 500 MG IVPREMIX 500 MG/100 ML BAG IV SCH ×2 (03:57→14:20)
[2021-04-29 04:49] LABS: Hematocrit 43 % (42-52); Hemoglobin 14.7 g/dL (14.0-18.0); Mean Corpuscular HGB Conc 35 g/dL (31-36); Mean Corpuscular Hemoglobin 31 pg (27-31); Mean Corpuscular Volume 91 fL (80-94); Mean Platelet Volume 8.7 fL (7.4-10.4); Platelet Count 178 10^3/uL (150-450); Red Blood Count 4.69 10^6 /uL (4.18-5.48); Red Cell Distribution Width 14 % (10-15); White Blood Count 9.7 10^3/uL (3.5-10.8)
[2021-04-29 05:09] LABS: Calcium 8.7 mg/dL (8.6-10.3); Magnesium 1.9 mg/dL (1.9-2.7); Phosphorus 3.2 mg/dL (2.5-5.0); Potassium 3.6 mmol/L (3.5-5.0)
[2021-04-29] MEDS ORDERED: Magnesium Sulfate IV 1GM/100ML 1 GM/100 ML BAG IV ONE (05:37)
[2021-04-29] MEDS: niCARdipine 0.1MG/ML IVPREMIX 20 MG/200 ML BAG IV SCH ×2 (06:42→16:10)
[2021-04-29] MEDS: NS 0.9% 1000 ml BAG 1,000 ML IV SCH ×2 (06:44→19:01)
[2021-04-29] MEDS ORDERED: MANNITOL IV SCH ×2 (08:00→16:00)
[2021-04-29] MEDS ORDERED: KCL 20 MEQ/100 ML IVPREMIX 20 MEQ/100 ML BAG IV SCH (08:01)
[2021-04-29] MEDS ORDERED: KCL 20 MEQ IV SCH (09:00)
[2021-04-29] MEDS ORDERED: NS 0.9% IV SCH (09:00)
[2021-04-29] MEDS ORDERED: Acetaminophen IV 1 GM/100ML 100 ML IV PRN (09:08)
[2021-04-29] MEDS: KCL 20 MEQ/100 ML IVPREMIX 20 MEQ/100 ML BAG IV SCH ×2 (09:11→11:27)
[2021-04-29] MEDS: Timolol 0.5% OPTH.SOL BTL BOTH EYES SCH (10:02)
[2021-04-29] MEDS: Famotidine IV 10 MG/ML 2 ml VIAL (20 mg) IV SLOW PU SCH ×2 (10:02→21:07)
[2021-04-29] MEDS: Acetaminophen IV 1 GM/100ML 100 ML IV SCH ×3 (10:13→21:07)
[2021-04-29] MEDS: MANNITOL IV SCH (17:04)
[2021-04-29] MEDS: Latanoprost 0.005% 2.5 ml BTL BOTH EYES SCH (21:08)
[2021-04-30] MEDS: MANNITOL IV SCH ×3 (01:15→21:28)
[2021-04-30] MEDS: levETIRAcetam 500 MG IVPREMIX 500 MG/100 ML BAG IV SCH ×2 (02:40→14:19)
[2021-04-30 05:23] LABS: Hematocrit 40 % (42-52); Hemoglobin 13.7 g/dL (14.0-18.0); Mean Corpuscular HGB Conc 34 g/dL (31-36); Mean Corpuscular Hemoglobin 31 pg (27-31); Mean Corpuscular Volume 91 fL (80-94); Mean Platelet Volume 8.8 fL (7.4-10.4); Platelet Count 177 10^3/uL (150-450); Red Blood Count 4.45 10^6 /uL (4.18-5.48); Red Cell Distribution Width 14 % (10-15); White Blood Count 8.7 10^3/uL (3.5-10.8)
[2021-04-30 05:39] LABS: Calcium 8.3 mg/dL (8.6-10.3); Magnesium 1.9 mg/dL (1.9-2.7); Phosphorus 3.1 mg/dL (2.5-5.0); Potassium 3.8 mmol/L (3.5-5.0)
[2021-04-30] MEDS: NS 0.9% 1000 ml BAG 1,000 ML IV SCH (08:55)
[2021-04-30] MEDS: Acetaminophen IV 1 GM/100ML 100 ML IV SCH (10:37)
[2021-04-30] MEDS: Famotidine IV 10 MG/ML 2 ml VIAL (20 mg) IV SLOW PU SCH ×2 (10:48→20:07)
[2021-04-30] MEDS: Amantadine SOLN ORALSYR 10 mg/ml NG TUBE SCH (10:48)
[2021-04-30] MEDS: Timolol 0.5% OPTH.SOL BTL BOTH EYES SCH (10:49)
[2021-04-30] MEDS ORDERED: Mannitol 25% (12.5 GM) 50 ML 12.5 GM/50 ML VIAL IV ONE (17:07)
[2021-04-30] MEDS ORDERED: MANNITOL 20% IV ONE (17:15)
[2021-04-30] MEDS ORDERED: hydrALAZINE 20 mg/ml 1 ML Vial IV IV SLOW PU PRN (18:32)
[2021-04-30] MEDS ORDERED: Mannitol 25% (12.5 GM) 50 ML 12.5 GM/50 ML VIAL IV SCH (19:30)
[2021-04-30 19:50] LABS: PCO2 Arterial 32 mmHg (35-45); PO2 Arterial 70 mmHg (80-100)
[2021-04-30] MEDS ORDERED: MANNITOL IV SCH (20:00)
[2021-04-30] MEDS: Latanoprost 0.005% 2.5 ml BTL BOTH EYES SCH (20:08)
[2021-04-30 20:47] LABS: Calcium 8.7 mg/dL (8.6-10.3); Potassium 3.9 mmol/L (3.5-5.0)
[2021-05-01 02:13] LABS: Calcium 8.6 mg/dL (8.6-10.3); Potassium 3.8 mmol/L (3.5-5.0)
[2021-05-01] MEDS: levETIRAcetam 500 MG IVPREMIX 500 MG/100 ML BAG IV SCH ×2 (03:21→17:35)
[2021-05-01] MEDS: Acetaminophen IV 1 GM/100ML 100 ML IV PRN (06:08)
[2021-05-01 06:38] LABS: Hematocrit 41 % (42-52); Mean Corpuscular HGB Conc 34 g/dL (31-36); Mean Corpuscular Hemoglobin 31 pg (27-31); Mean Corpuscular Volume 90 fL (80-94); Red Blood Count 4.58 10^6 /uL (4.18-5.48); Red Cell Distribution Width 14 % (10-15); White Blood Count 11.1 10^3/uL (3.5-10.8)
[2021-05-01 06:42] LABS: Calcium 8.7 mg/dL (8.6-10.3); Magnesium 1.9 mg/dL (1.9-2.7); Phosphorus 3.9 mg/dL (2.5-5.0); Potassium 3.8 mmol/L (3.5-5.0)
[2021-05-01] MEDS: MANNITOL IV SCH ×3 (06:43→18:04)
[2021-05-01 07:38] LABS: Calcium 8.4 mg/dL (8.6-10.3)
[2021-05-01 07:55] LABS: Mean Platelet Volume 8.9 fL (7.4-10.4); Platelet Count 179 10^3/uL (150-450)
[2021-05-01] MEDS ORDERED: ceFAZolin 2 GM in NS PREMIX 2 GM/100 ML BAG IVPB ONE (07:56)
[2021-05-01] MEDS: Famotidine IV 10 MG/ML 2 ml VIAL (20 mg) IV SLOW PU SCH ×2 (08:54→20:47)
[2021-05-01] MEDS: Amantadine SOLN ORALSYR 10 mg/ml NG TUBE SCH (09:05)
[2021-05-01] MEDS ORDERED: Succinylcholine 200 mg VIAL 20 mg/ml 10 ml VIAL (200 mg) ONE (09:23)
[2021-05-01] MEDS ORDERED: fentaNYL 250 mcg/5 ml 50 MCG/ML 5 ml VIAL (250 MCG) ONE ×2 (09:30→10:53)
[2021-05-01] MEDS ORDERED: Propofol 10 MG/ML 20 ML BTL ONE ×2 (09:30→11:01)
[2021-05-01] MEDS ORDERED: Etomidate 40 mg/20 ml (2 MG/ML) 20 ml VIAL (40 mg) ONE (09:30)
[2021-05-01] MEDS ORDERED: Propofol 10 mg/ml 100 ML BTL 100 ML ONE (09:40)
[2021-05-01] MEDS ORDERED: Norepinephrine IV 1 MG/ML 4 ML VIAL ONE (09:40)
[2021-05-01] MEDS: Propofol 10 mg/ml 100 ML BTL 100 ML IV SCH ×2 (09:50→20:57)
[2021-05-01] MEDS ORDERED: Rocuronium 50 mg VIAL 10 mg/ml 5 ml VIAL (50 mg) ONE ×3 (10:53→16:19)
[2021-05-01] MEDS ORDERED: Phenylephrine IV 10 MG/ML 1 ml VIAL ONE (10:56)
[2021-05-01] MEDS ORDERED: Lidocaine 2% PF 5 ML VIAL ONE (10:56)
[2021-05-01] MEDS ORDERED: NS IV SCH (11:00)
[2021-05-01] MEDS ORDERED: NOREPINEPHRINE IV SCH (11:00)
[2021-05-01] MEDS ORDERED: Norepinephrine 16MCG/ML IVPRE 4,000 MCG/250 ML BAG IV SCH (11:00)
[2021-05-01] MEDS ORDERED: Midazolam 2 mg/2 ml VIAL 1 mg/ml 2 ml VIAL (2 mg) ONE ×4 (11:03→16:10)
[2021-05-01] MEDS ORDERED: Bupivacaine 0.25% SDV 30 ML ONE (11:59)
[2021-05-01] MEDS ORDERED: ceFAZolin VIAL VIAL ONE ×2 (11:59→13:10)
[2021-05-01] MEDS ORDERED: Thrombin 5,000 UNITS 1 APPLIC KIT - topical use - TOPICAL ONE (11:59)
[2021-05-01] MEDS ORDERED: Bacitracin OINTMENT TUBE ONE (12:00)
[2021-05-01] MEDS ORDERED: Gelfoam Sponge SIZE 100 SPONGE ONE (12:00)
[2021-05-01] MEDS ORDERED: ceFAZolin 2 GM in NS PREMIX 0 GM/0 ML BAG IVPB ONE (13:08)
[2021-05-01] MEDS: Chlorhexidine MOUTHWASH 0.12% 15 ML UDC SWISH SPIT SCH ×4 (13:19→22:48)
[2021-05-01] MEDS ORDERED: EPHEDrine (Pressors) 50 MG/ML VIAL ONE (13:32)
[2021-05-01] MEDS ORDERED: Mannitol 25% (12.5 GM) 50 ML 12.5 GM/50 ML VIAL ONE (13:56)
[2021-05-01] MEDS ORDERED: Ondansetron 4 mg VIAL 2 MG/ML 2 ml VIAL ONE (15:12)
[2021-05-01] MEDS ORDERED: Dexamethasone IV 4 MG/ML VIAL 1 ml VIAL ONE (15:12)
[2021-05-01] MEDS ORDERED: Phenylephrine 40 mcg/mL 10mL (400mcg) SYRINGE ONE ×2 (15:29→15:49)
[2021-05-01] MEDS ORDERED: Albuterol HFA INHALER 8 gm MDI INH ONE (16:00)
[2021-05-01] MEDS ORDERED: fentaNYL INFUSION 50 mcg/mL VL 2,500 MCG/50 ML VIAL IV SCH (17:00)
[2021-05-01] MEDS ORDERED: ceFAZolin 2 GM in NS PREMIX 2 GM/100 ML BAG IVPB SCH (17:00)
[2021-05-01] MEDS: Timolol 0.5% OPTH.SOL BTL BOTH EYES SCH (17:59)
[2021-05-01] MEDS ORDERED: Piperacillin/Tazobac ADVAN 3.375 GM in NS 0.9% 100 ml BAG 100 ML IV ONE (18:42)
[2021-05-01] MEDS ORDERED: Zosyn per Pharmacy NOTE FOLLOW UP SCH (19:00)
[2021-05-01] MEDS ORDERED: Vancomycin per Pharmacy 1 EA NOTE FOLLOW UP PRN (19:03)
[2021-05-01] MEDS ORDERED: Vancomycin 1,000 MG in NS 0.9% 250 ml 250 ML IVPB ONE (19:03)
[2021-05-01] MEDS ORDERED: Linezolid 600 MG IVPREMIX(*) 600 MG/300 ML BAG IVPB SCH (20:00)
[2021-05-01] MEDS ORDERED: Vancomycin 1,500 MG in NS 0.9% 250 ml 250 ML IVPB ONE (20:00)
[2021-05-01] MEDS ORDERED: Vancomycin per Pharmacy 1 EA NOTE FOLLOW UP SCH (20:00)
[2021-05-01] MEDS: Latanoprost 0.005% 2.5 ml BTL BOTH EYES SCH (20:47)
[2021-05-02] MEDS: ZOSYN 3.375 GM Q8H per EXTENDED INFUSION IV SCH ×3 (00:04→16:19)
[2021-05-02] MEDS: Chlorhexidine MOUTHWASH 0.12% 15 ML UDC SWISH SPIT SCH ×6 (01:44→21:44)
[2021-05-02] MEDS: levETIRAcetam 500 MG IVPREMIX 500 MG/100 ML BAG IV SCH ×2 (01:44→14:40)
[2021-05-02 04:04] LABS: Hematocrit 39 % (42-52); Hemoglobin 12.9 g/dL (14.0-18.0); Mean Corpuscular HGB Conc 33 g/dL (31-36); Mean Corpuscular Hemoglobin 31 pg (27-31); Mean Corpuscular Volume 92 fL (80-94); Mean Platelet Volume 8.9 fL (7.4-10.4); Platelet Count 172 10^3/uL (150-450); Red Blood Count 4.23 10^6 /uL (4.18-5.48); Red Cell Distribution Width 14 % (10-15); White Blood Count 10.4 10^3/uL (3.5-10.8)
[2021-05-02 04:20] LABS: Calcium 8.2 mg/dL (8.6-10.3); Magnesium 2.1 mg/dL (1.9-2.7); Phosphorus 4.2 mg/dL (2.5-5.0); Potassium 4.4 mmol/L (3.5-5.0)
[2021-05-02] MEDS: Vancomycin 1,250 MG in NS 0.9% 250 ml 250 ML IVPB SCH ×2 (06:08→18:09)
[2021-05-02] MEDS ORDERED: hydrALAZINE 20 mg/ml 1 ML Vial IV IV SLOW PU PRN ×2 (07:44→08:48)
[2021-05-02] MEDS: Amantadine SOLN ORALSYR 10 mg/ml NG TUBE SCH (08:46)
[2021-05-02] MEDS: Timolol 0.5% OPTH.SOL BTL BOTH EYES SCH (08:46)
[2021-05-02] MEDS: Famotidine IV 10 MG/ML 2 ml VIAL (20 mg) IV SLOW PU SCH ×2 (08:46→20:22)
[2021-05-02] MEDS ORDERED: fentaNYL 100 mcg/2 ml 50 MCG/ML VIAL ONE (11:59)
[2021-05-02] MEDS: Propofol 10 mg/ml 100 ML BTL 100 ML IV SCH ×2 (12:09→18:04)
[2021-05-02] MEDS ORDERED: fentaNYL 100 mcg/2 ml 50 MCG/ML VIAL IV SLOW PU ONE (12:14)
[2021-05-02] MEDS: Latanoprost 0.005% 2.5 ml BTL BOTH EYES SCH (20:16)
[2021-05-02] MEDS ORDERED: Digoxin IV 0.5 MG/2 ML AMP (0.25 MG/ML) IV SLOW PU ONE (20:40)
[2021-05-02] MEDS ORDERED: Metoprolol Tartrate 5 mg VIAL 5 ml VIAL (1 mg/ml) IV ONE ×2 (20:40→23:00)
[2021-05-02 20:57] LABS: ABS Eosinophils 0.1 10^3/ul (0-0.6); ABS Lymphocytes 0.8 10^3/ul (1.0-4.8); ABS Neutrophils 7.8 10^3/ul (1.5-7.7); Eosinophil % 1.2 %; Hematocrit 35 % (42-52); Hemoglobin 12.1 g/dL (14.0-18.0); Lymphocyte % 7.9 %; Mean Corpuscular HGB Conc 34 g/dL (31-36); Mean Corpuscular Hemoglobin 31 pg (27-31); Mean Corpuscular Volume 91 fL (80-94); Mean Platelet Volume 8.9 fL (7.4-10.4); Platelet Count 160 10^3/uL (150-450); Red Blood Count 3.88 10^6 /uL (4.18-5.48); Red Cell Distribution Width 14 % (10-15); White Blood Count 9.8 10^3/uL (3.5-10.8)
[2021-05-02 21:16] LABS: Albumin 3.1 g/dL (3.2-5.2); Calcium 8.3 mg/dL (8.6-10.3); Globulin 3.2 g/dL (2-4); Magnesium 2.1 mg/dL (1.9-2.7); Potassium 4.1 mmol/L (3.5-5.0); Total Bilirubin 0.8 mg/dL (0.2-1.0); Total Protein 6.3 g/dL (6.4-8.9)
[2021-05-02 21:43] LABS: TSH Ultra Thyroid Stim Horm 0.7 mcIU/mL (0.34-5.60)
[2021-05-02] MEDS ORDERED: Diltiazem IV push/loading dose 5 MG/ML 5 ML vial (25 mg) IV SLOW PU ONE (23:12)
[2021-05-03] MEDS ORDERED: Diltiazem IV push/loading dose 5 MG/ML 5 ML vial (25 mg) IV SLOW PU ONE (00:22)
[2021-05-03] MEDS: ZOSYN 3.375 GM Q8H per EXTENDED INFUSION IV SCH ×3 (00:29→16:08)
[2021-05-03] MEDS: Diltiazem IV BAG D5W Premix 125 MG/125 ML BAG IV SCH (00:51)
[2021-05-03] MEDS ORDERED: Digoxin IV 0.5 MG/2 ML AMP (0.25 MG/ML) IV SLOW PU ONE (03:00)
[2021-05-03] MEDS: levETIRAcetam 500 MG IVPREMIX 500 MG/100 ML BAG IV SCH ×2 (03:07→12:23)
[2021-05-03] MEDS: Chlorhexidine MOUTHWASH 0.12% 15 ML UDC SWISH SPIT SCH ×6 (03:07→22:06)
[2021-05-03 04:24] LABS: Hematocrit 35 % (42-52); Hemoglobin 12.1 g/dL (14.0-18.0); Mean Corpuscular HGB Conc 35 g/dL (31-36); Mean Corpuscular Hemoglobin 32 pg (27-31); Mean Corpuscular Volume 91 fL (80-94); Mean Platelet Volume 8.6 fL (7.4-10.4); Platelet Count 137 10^3/uL (150-450); Red Blood Count 3.83 10^6 /uL (4.18-5.48); Red Cell Distribution Width 14 % (10-15); White Blood Count 10.1 10^3/uL (3.5-10.8)
[2021-05-03 04:42] LABS: Anion Gap 7 mmol/L (2-11); Blood Urea Nitrogen 27 mg/dL (6-24); CO2 Carbon Dioxide 24 mmol/L (22-32); Calcium 8.2 mg/dL (8.6-10.3); Chloride 110 mmol/L (101-111); Glucose 164 mg/dL (70-100); Magnesium 2.2 mg/dL (1.9-2.7); Phosphorus 2.9 mg/dL (2.5-5.0); Potassium 4.1 mmol/L (3.5-5.0); Sodium 141 mmol/L (135-145)
[2021-05-03] MEDS ORDERED: Vancomycin Trough Check NOTE FOLLOW UP ONE (05:30)
[2021-05-03] MEDS: Vancomycin 1,250 MG in NS 0.9% 250 ml 250 ML IVPB SCH ×2 (07:40→16:25)
[2021-05-03] MEDS ORDERED: Furosemide 40 mg/4 ml IV VIAL IV SLOW PU ONE (09:22)
[2021-05-03] MEDS: Famotidine IV 10 MG/ML 2 ml VIAL (20 mg) IV SLOW PU SCH ×2 (09:42→20:37)
[2021-05-03] MEDS: Timolol 0.5% OPTH.SOL BTL BOTH EYES SCH (09:42)
[2021-05-03] MEDS: Amantadine SOLN ORALSYR 10 mg/ml NG TUBE SCH (10:10)
[2021-05-03 10:14] LABS: Troponin I 0.13 ng/mL (<0.03)
[2021-05-03] MEDS ORDERED: fentaNYL 100 mcg/2 ml 50 MCG/ML VIAL ONE (11:00)
[2021-05-03 14:01] LABS: Troponin I 0.04 ng/mL (<0.03)
[2021-05-03 16:54] LABS: Troponin I 0.04 ng/mL (<0.03)
[2021-05-03] MEDS ORDERED: Dexmedetomidine 1,000 MCG in NS 0.9% 250 ml 240 ML IV SCH (18:00)
[2021-05-03] MEDS: Latanoprost 0.005% 2.5 ml BTL BOTH EYES SCH (20:37)
[2021-05-03] MEDS: Acetaminophen IV 1 GM/100ML 100 ML IV PRN (20:41)
[2021-05-04] MEDS: Vancomycin 1,250 MG in NS 0.9% 250 ml 250 ML IVPB SCH ×2 (00:29→08:05)
[2021-05-04] MEDS: ZOSYN 3.375 GM Q8H per EXTENDED INFUSION IV SCH ×2 (01:09→07:55)
[2021-05-04] MEDS: Diltiazem IV BAG D5W Premix 125 MG/125 ML BAG IV SCH (01:18)
[2021-05-04] MEDS: Chlorhexidine MOUTHWASH 0.12% 15 ML UDC SWISH SPIT SCH ×6 (03:05→21:12)
[2021-05-04] MEDS: levETIRAcetam 500 MG IVPREMIX 500 MG/100 ML BAG IV SCH ×2 (03:05→14:04)
[2021-05-04 04:40] LABS: Calcium 8.1 mg/dL (8.6-10.3); Magnesium 2.1 mg/dL (1.9-2.7); Phosphorus 2.6 mg/dL (2.5-5.0); Potassium 3.6 mmol/L (3.5-5.0)
[2021-05-04] MEDS ORDERED: Potassium Chloride LIQUID 20 MEQ/15 ML LIQUID PO ONE (06:56)
[2021-05-04] MEDS: KCL 10 MEQ/50 ML IVPREMIX 10 MEQ/50 ML BAG IV SCH ×3 (07:55→09:57)
[2021-05-04] MEDS: Acetaminophen IV 1 GM/100ML 100 ML IV PRN ×3 (08:17→21:44)
[2021-05-04] MEDS: Amantadine SOLN ORALSYR 10 mg/ml NG TUBE SCH (08:57)
[2021-05-04] MEDS: Timolol 0.5% OPTH.SOL BTL BOTH EYES SCH (08:58)
[2021-05-04] MEDS: Famotidine IV 10 MG/ML 2 ml VIAL (20 mg) IV SLOW PU SCH ×2 (08:58→21:13)
[2021-05-04] MEDS ORDERED: cefTRIAXone 2 GM ADDV.VIAL 2 GM in NS 0.9% 100 ml BAG 100 ML IV SCH (10:00)
[2021-05-04] MEDS ORDERED: DOXYcycline 100 MG in NS 0.9% 250 ml 250 ML IVPB SCH (10:00)
[2021-05-04] MEDS ORDERED: cefTRIAXone 2 GM ADDV.VIAL 1 GM in NS 0.9% 100 ml BAG 100 ML IV SCH (10:28)
[2021-05-04] MEDS ORDERED: Perflutren Lipid Microsphere 3 ML VIAL ONE (12:24)
[2021-05-04] MEDS: Dextran 70/Hypromellose Tears Eye Drops 15 ml BTL (for Artificials Tears) BOTH EYES PRN (16:18)
[2021-05-04] MEDS: Latanoprost 0.005% 2.5 ml BTL BOTH EYES SCH (19:04)
[2021-05-04] MEDS: DOXYcycline 100 MG in NS 0.9% 250 ml 250 ML IVPB SCH (20:40)
[2021-05-05] MEDS: levETIRAcetam 500 MG IVPREMIX 500 MG/100 ML BAG IV SCH ×2 (01:45→14:39)
[2021-05-05] MEDS: Chlorhexidine MOUTHWASH 0.12% 15 ML UDC SWISH SPIT SCH ×6 (02:02→21:09)
[2021-05-05] MEDS: Acetaminophen IV 1 GM/100ML 100 ML IV PRN (03:59)
[2021-05-05 04:52] LABS: ABS Basophils 0.1 10^3/ul (0-0.2); ABS Eosinophils 0.2 10^3/ul (0-0.6); ABS Lymphocytes 1.1 10^3/ul (1.0-4.8); ABS Monocytes 1.2 10^3/ul (0-0.8); ABS Neutrophils 9.1 10^3/ul (1.5-7.7); Eosinophil % 1.8 %; Hematocrit 36 % (42-52); Lymphocyte % 9.5 %; Mean Corpuscular HGB Conc 33 g/dL (31-36); Mean Corpuscular Hemoglobin 31 pg (27-31); Mean Corpuscular Volume 93 fL (80-94); Mean Platelet Volume 8.9 fL (7.4-10.4); Nucleated Red Blood Cells % 0.1; Platelet Count 142 10^3/uL (150-450); Red Blood Count 3.89 10^6 /uL (4.18-5.48); Red Cell Distribution Width 14 % (10-15); White Blood Count 11.7 10^3/uL (3.5-10.8)
[2021-05-05 05:08] LABS: Calcium 8.6 mg/dL (8.6-10.3); Phosphorus 3.2 mg/dL (2.5-5.0); Potassium 3.7 mmol/L (3.5-5.0)
[2021-05-05] MEDS ORDERED: Vancomycin Trough Check NOTE FOLLOW UP ONE (07:30)
[2021-05-05] MEDS ORDERED: Propofol 10 mg/ml 100 ML BTL 100 ML ONE (08:59)
[2021-05-05] MEDS ORDERED: Rocuronium 50 mg VIAL 10 mg/ml 5 ml VIAL (50 mg) ONE (08:59)
[2021-05-05] MEDS ORDERED: Propofol 10 MG/ML 20 ML BTL ONE (09:00)
[2021-05-05] MEDS: Amantadine SOLN ORALSYR 10 mg/ml NG TUBE SCH (09:40)
[2021-05-05] MEDS: Famotidine IV 10 MG/ML 2 ml VIAL (20 mg) IV SLOW PU SCH ×2 (09:40→21:04)
[2021-05-05] MEDS: Timolol 0.5% OPTH.SOL BTL BOTH EYES SCH (10:11)
[2021-05-05] MEDS: DOXYcycline 100 MG in NS 0.9% 250 ml 250 ML IVPB SCH ×2 (10:11→21:02)
[2021-05-05] MEDS: Nystatin SUSPENSION 100,000 UNITS/ML UDC PO SCH ×2 (18:27→21:09)
[2021-05-05] MEDS: Latanoprost 0.005% 2.5 ml BTL BOTH EYES SCH (20:14)
[2021-05-05] MEDS ORDERED: NS 0.9% 250 ml 250 ML ONE (20:56)
[2021-05-05] MEDS ORDERED: NS 0.9% 500 ml BAG 500 ML IV SCH (23:45)
[2021-05-06] MEDS: Propofol 10 mg/ml 100 ML BTL 100 ML IV SCH ×4 (00:28→20:27)
[2021-05-06] MEDS ORDERED: NS 0.9% 500 ml BAG 500 ML IV ONE (00:30)
[2021-05-06] MEDS: levETIRAcetam 500 MG IVPREMIX 500 MG/100 ML BAG IV SCH ×2 (02:17→14:00)
[2021-05-06] MEDS: Chlorhexidine MOUTHWASH 0.12% 15 ML UDC SWISH SPIT SCH ×6 (02:51→20:16)
[2021-05-06] MEDS: NS 0.9% 1000 ml BAG 1,000 ML IV SCH ×2 (03:22→17:39)
[2021-05-06 04:30] LABS: ABS Eosinophils 0.2 10^3/ul (0-0.6); ABS Monocytes 1.1 10^3/ul (0-0.8); ABS Neutrophils 8.1 10^3/ul (1.5-7.7); Eosinophil % 1.7 %; Hematocrit 31 % (42-52); Hemoglobin 10.3 g/dL (14.0-18.0); Lymphocyte % 9.2 %; Mean Corpuscular HGB Conc 33 g/dL (31-36); Mean Corpuscular Hemoglobin 31 pg (27-31); Mean Corpuscular Volume 92 fL (80-94); Mean Platelet Volume 8.6 fL (7.4-10.4); Platelet Count 144 10^3/uL (150-450); Red Blood Count 3.38 10^6 /uL (4.18-5.48); Red Cell Distribution Width 14 % (10-15); White Blood Count 10.4 10^3/uL (3.5-10.8)
[2021-05-06 04:45] LABS: Calcium 8.4 mg/dL (8.6-10.3); Magnesium 1.9 mg/dL (1.9-2.7); Potassium 3.8 mmol/L (3.5-5.0)
[2021-05-06] MEDS ORDERED: Senna TAB 8.6 mg TAB PO PRN (05:20)
[2021-05-06] MEDS ORDERED: Magnesium Hydroxide LIQ 30 ML UDC PO PRN (05:20)
[2021-05-06] MEDS ORDERED: Potassium Chlor 20 meq TAB.ER PO ONE (05:20)
[2021-05-06] MEDS ORDERED: Magnesium Sulfate 2 gm BAG 2 GM/50 ML BAG IVPB ONE (05:21)
[2021-05-06] MEDS ORDERED: Potassium Chloride LIQUID 20 MEQ/15 ML LIQUID PO ONE (06:20)
[2021-05-06] MEDS: DOXYcycline 100 MG in NS 0.9% 250 ml 250 ML IVPB SCH ×2 (09:09→20:29)
[2021-05-06] MEDS: Famotidine IV 10 MG/ML 2 ml VIAL (20 mg) IV SLOW PU SCH ×2 (09:10→20:14)
[2021-05-06] MEDS: Amantadine SOLN ORALSYR 10 mg/ml NG TUBE SCH (09:12)
[2021-05-06] MEDS: Nystatin SUSPENSION 100,000 UNITS/ML UDC PO SCH ×4 (09:12→20:16)
[2021-05-06] MEDS: Timolol 0.5% OPTH.SOL BTL BOTH EYES SCH (09:24)
[2021-05-06] MEDS ORDERED: Propofol 10 mg/ml 100 ML BTL 100 ML ONE (14:15)
[2021-05-06] MEDS ORDERED: Heparin 2 UNITS/ML 1000 mls 1,000 ML IV ONE (15:13)
[2021-05-06] MEDS: Latanoprost 0.005% 2.5 ml BTL BOTH EYES SCH (20:12)
[2021-05-06] MEDS ORDERED: NS 0.9% 1000 ml BAG 1,000 ML IV SCH (22:18)
[2021-05-07] MEDS: levETIRAcetam 500 MG IVPREMIX 500 MG/100 ML BAG IV SCH ×2 (03:08→14:49)
[2021-05-07] MEDS: Chlorhexidine MOUTHWASH 0.12% 15 ML UDC SWISH SPIT SCH ×6 (03:09→21:21)
[2021-05-07 04:26] LABS: ABS Eosinophils 0.3 10^3/ul (0-0.6); ABS Lymphocytes 1.1 10^3/ul (1.0-4.8); ABS Monocytes 1.1 10^3/ul (0-0.8); ABS Neutrophils 7.9 10^3/ul (1.5-7.7); Eosinophil % 2.6 %; Hematocrit 30 % (42-52); Hemoglobin 10.1 g/dL (14.0-18.0); Lymphocyte % 10.5 %; Mean Corpuscular HGB Conc 34 g/dL (31-36); Mean Corpuscular Hemoglobin 31 pg (27-31); Mean Corpuscular Volume 92 fL (80-94); Mean Platelet Volume 8.5 fL (7.4-10.4); Platelet Count 160 10^3/uL (150-450); Red Blood Count 3.28 10^6 /uL (4.18-5.48); Red Cell Distribution Width 14 % (10-15); White Blood Count 10.4 10^3/uL (3.5-10.8)
[2021-05-07 04:42] LABS: Calcium 7.9 mg/dL (8.6-10.3); Magnesium 1.9 mg/dL (1.9-2.7); Phosphorus 2.9 mg/dL (2.5-5.0); Potassium 3.7 mmol/L (3.5-5.0)
[2021-05-07] MEDS: Propofol 10 mg/ml 100 ML BTL 100 ML IV SCH (06:20)
[2021-05-07] MEDS ORDERED: Potassium Chloride LIQUID 20 MEQ/15 ML LIQUID PO ONE (06:29)
[2021-05-07] MEDS ORDERED: NS 0.9% 1000 ml BAG 1,000 ML IV SCH (06:32)
[2021-05-07] MEDS ORDERED: Magnesium Sulfate 2 gm BAG 2 GM/50 ML BAG IVPB ONE (06:33)
[2021-05-07] MEDS: DOXYcycline 100 MG in NS 0.9% 250 ml 250 ML IVPB SCH ×2 (09:09→21:17)
[2021-05-07] MEDS: Nystatin SUSPENSION 100,000 UNITS/ML UDC PO SCH ×4 (09:10→21:21)
[2021-05-07] MEDS: Amantadine SOLN ORALSYR 10 mg/ml NG TUBE SCH ×2 (09:10→21:40)
[2021-05-07] MEDS: Famotidine IV 10 MG/ML 2 ml VIAL (20 mg) IV SLOW PU SCH ×2 (09:10→21:20)
[2021-05-07] MEDS: Timolol 0.5% OPTH.SOL BTL BOTH EYES SCH (09:11)
[2021-05-07] MEDS: Acetaminophen IV 1 GM/100ML 100 ML IV PRN (16:02)
[2021-05-07] MEDS ORDERED: NS 0.9% 250 ml 250 ML ONE (21:15)
[2021-05-07] MEDS: Latanoprost 0.005% 2.5 ml BTL BOTH EYES SCH (21:17)
[2021-05-08] MEDS: levETIRAcetam 500 MG IVPREMIX 500 MG/100 ML BAG IV SCH ×2 (02:22→15:14)
[2021-05-08] MEDS: Chlorhexidine MOUTHWASH 0.12% 15 ML UDC SWISH SPIT SCH ×6 (02:23→20:06)
[2021-05-08 04:50] LABS: ABS Eosinophils 0.4 10^3/ul (0-0.6); ABS Lymphocytes 0.9 10^3/ul (1.0-4.8); ABS Neutrophils 9.5 10^3/ul (1.5-7.7); Eosinophil % 3.1 %; Hematocrit 30 % (42-52); Hemoglobin 10.1 g/dL (14.0-18.0); Lymphocyte % 7.3 %; Mean Corpuscular HGB Conc 34 g/dL (31-36); Mean Corpuscular Hemoglobin 31 pg (27-31); Mean Corpuscular Volume 92 fL (80-94); Mean Platelet Volume 9.2 fL (7.4-10.4); Nucleated Red Blood Cells % 0.1; Platelet Count 194 10^3/uL (150-450); Red Blood Count 3.27 10^6 /uL (4.18-5.48); Red Cell Distribution Width 15 % (10-15); White Blood Count 11.8 10^3/uL (3.5-10.8)
[2021-05-08 05:16] LABS: Calcium 7.8 mg/dL (8.6-10.3); Phosphorus 2.9 mg/dL (2.5-5.0); Potassium 3.9 mmol/L (3.5-5.0)
[2021-05-08] MEDS ORDERED: Potassium Chloride LIQUID 20 MEQ/15 ML LIQUID PO ONE (05:19)
[2021-05-08] MEDS: DOXYcycline 100 MG in NS 0.9% 250 ml 250 ML IVPB SCH ×2 (08:03→20:05)
[2021-05-08] MEDS: Nystatin SUSPENSION 100,000 UNITS/ML UDC PO SCH ×4 (08:03→20:06)
[2021-05-08] MEDS: Amantadine SOLN ORALSYR 10 mg/ml NG TUBE SCH ×2 (08:03→20:05)
[2021-05-08] MEDS: Famotidine IV 10 MG/ML 2 ml VIAL (20 mg) IV SLOW PU SCH ×2 (08:04→20:05)
[2021-05-08] MEDS: Dextran 70/Hypromellose Tears Eye Drops 15 ml BTL (for Artificials Tears) BOTH EYES PRN (08:04)
[2021-05-08] MEDS: Timolol 0.5% OPTH.SOL BTL BOTH EYES SCH (09:48)
[2021-05-08] MEDS: Lactulose 30 ml UDC NG TUBE SCH ×3 (09:48→20:05)
[2021-05-08] MEDS ORDERED: fentaNYL 100 mcg/2 ml 50 MCG/ML VIAL IV SLOW PU ONE (16:54)
[2021-05-08] MEDS ORDERED: fentaNYL 100 mcg/2 ml 50 MCG/ML VIAL ONE (16:56)
[2021-05-08] MEDS: Latanoprost 0.005% 2.5 ml BTL BOTH EYES SCH (20:05)
[2021-05-09] MEDS: Chlorhexidine MOUTHWASH 0.12% 15 ML UDC SWISH SPIT SCH ×3 (02:07→09:27)
[2021-05-09] MEDS: levETIRAcetam 500 MG IVPREMIX 500 MG/100 ML BAG IV SCH (02:07)
[2021-05-09 05:20] LABS: Hematocrit 29 % (42-52); Hemoglobin 9.9 g/dL (14.0-18.0); Mean Corpuscular HGB Conc 34 g/dL (31-36); Mean Corpuscular Hemoglobin 30 pg (27-31); Mean Corpuscular Volume 90 fL (80-94); Mean Platelet Volume 8.8 fL (7.4-10.4); Platelet Count 234 10^3/uL (150-450); Red Blood Count 3.26 10^6 /uL (4.18-5.48); Red Cell Distribution Width 14 % (10-15); White Blood Count 12.8 10^3/uL (3.5-10.8)
[2021-05-09 05:30] LABS: ABS Eosinophils 0.3 10^3/ul (0-0.6); ABS Lymphocytes 1.2 10^3/ul (1.0-4.8); ABS Monocytes 1.2 10^3/ul (0-0.8); Eosinophil % 2.6 %; Lymphocyte % 9.3 %; Nucleated Red Blood Cells % 0.1
[2021-05-09 05:36] LABS: Magnesium 1.9 mg/dL (1.9-2.7); Phosphorus 3.6 mg/dL (2.5-5.0)
[2021-05-09] MEDS: Acetaminophen IV 1 GM/100ML 100 ML IV PRN (05:45)
[2021-05-09] MEDS ORDERED: Magnesium Sulfate 2 gm BAG 2 GM/50 ML BAG IVPB ONE (05:47)
[2021-05-09] MEDS ORDERED: Saline FLUSH-PERIPHERAL 10 ML SYRINGE IV FLUSH SCH (07:00)
[2021-05-09] MEDS: Lactulose 30 ml UDC NG TUBE SCH ×3 (07:48→19:45)
[2021-05-09] MEDS: Famotidine IV 10 MG/ML 2 ml VIAL (20 mg) IV SLOW PU SCH ×2 (07:48→19:45)
[2021-05-09] MEDS: Saline FLUSH-CENTRAL 10 ML SYRINGE IV FLUSH SCH ×3 (07:48→20:01)
[2021-05-09] MEDS: DOXYcycline 100 MG in NS 0.9% 250 ml 250 ML IVPB SCH ×2 (07:48→20:26)
[2021-05-09] MEDS: Nystatin SUSPENSION 100,000 UNITS/ML UDC PO SCH ×4 (07:48→19:45)
[2021-05-09] MEDS: Amantadine SOLN ORALSYR 10 mg/ml NG TUBE SCH ×2 (07:48→19:45)
[2021-05-09] MEDS: Timolol 0.5% OPTH.SOL BTL BOTH EYES SCH (07:49)
[2021-05-09] MEDS: Docusate LIQ 100 MG/10 ML UDC PO SCH (07:57)
[2021-05-09] MEDS ORDERED: Zosyn per Pharmacy NOTE FOLLOW UP SCH (11:00)
[2021-05-09] MEDS ORDERED: Piperacillin/Tazobac ADVAN 3.375 GM in NS 0.9% 100 ml BAG 100 ML IV SCH (11:00)
[2021-05-09] MEDS ORDERED: Methylnaltrexone SQ (NF) 12 MG/0.6 ML VIAL SUBCUT ONE (11:00)
[2021-05-09] MEDS ORDERED: ZOSYN 3.375 GM x ONE DOSE over 30 miuntes IV (11:00)
[2021-05-09] MEDS ORDERED: Sodium Phosphate ADULT ENEMA 133 ML BTL PR ONE (12:57)
[2021-05-09] MEDS ORDERED: Sodium Phosphate ADULT ENEMA 133 ML BTL ONE (12:58)
[2021-05-09] MEDS: levETIRAcetam IV 500 MG in NS 0.9% 100 ml BAG 100 ML IVPB SCH (14:15)
[2021-05-09] MEDS: Piperacillin/Tazobac ADVAN 3.375 GM in NS 0.9% 100 ml BAG 100 ML IV SCH ×2 (16:31→22:47)
[2021-05-09] MEDS: Latanoprost 0.005% 2.5 ml BTL BOTH EYES SCH (19:45)
[2021-05-09] MEDS: Senna TAB 8.6 mg TAB PO SCH (19:46)
[2021-05-10] MEDS: levETIRAcetam IV 500 MG in NS 0.9% 100 ml BAG 100 ML IVPB SCH (01:04)
[2021-05-10] MEDS: Saline FLUSH-CENTRAL 10 ML SYRINGE IV FLUSH SCH ×3 (04:01→20:06)
[2021-05-10 04:18] LABS: Hematocrit 29 % (42-52); Hemoglobin 9.6 g/dL (14.0-18.0); Mean Corpuscular HGB Conc 33 g/dL (31-36); Mean Corpuscular Hemoglobin 30 pg (27-31); Mean Corpuscular Volume 90 fL (80-94); Mean Platelet Volume 8.9 fL (7.4-10.4); Platelet Count 260 10^3/uL (150-450); Red Blood Count 3.18 10^6 /uL (4.18-5.48); Red Cell Distribution Width 14 % (10-15); White Blood Count 12.9 10^3/uL (3.5-10.8)
[2021-05-10 04:34] LABS: Phosphorus 3.8 mg/dL (2.5-5.0); Potassium 3.9 mmol/L (3.5-5.0)
[2021-05-10 04:45] LABS: ABS Basophils 0.1 10^3/ul (0-0.2); ABS Eosinophils 0.4 10^3/ul (0-0.6); ABS Lymphocytes 0.9 10^3/ul (1.0-4.8); ABS Monocytes 0.7 10^3/ul (0-0.8); ABS Neutrophils 10.8 10^3/ul (1.5-7.7); Eosinophil % 2.9 %; Lymphocyte % 6.9 %; Nucleated Red Blood Cells % 0.1
[2021-05-10] MEDS: Piperacillin/Tazobac ADVAN 3.375 GM in NS 0.9% 100 ml BAG 100 ML IV SCH ×3 (07:54→23:07)
[2021-05-10] MEDS: DOXYcycline 100 MG in NS 0.9% 250 ml 250 ML IVPB SCH ×2 (10:08→19:29)
[2021-05-10] MEDS: levETIRAcetam 500 MG IVPREMIX 500 MG/100 ML BAG IVPB SCH (13:35)
[2021-05-10] MEDS: Amantadine SOLN ORALSYR 10 mg/ml NG TUBE SCH ×2 (13:36→19:29)
[2021-05-10] MEDS: Docusate LIQ 100 MG/10 ML UDC PO SCH (13:37)
[2021-05-10] MEDS: Lactulose 30 ml UDC NG TUBE SCH ×3 (13:37→19:30)
[2021-05-10] MEDS: Nystatin SUSPENSION 100,000 UNITS/ML UDC PO SCH ×4 (13:37→19:28)
[2021-05-10] MEDS: Timolol 0.5% OPTH.SOL BTL BOTH EYES SCH (13:38)
[2021-05-10] MEDS: Famotidine IV 10 MG/ML 2 ml VIAL (20 mg) IV SLOW PU SCH ×2 (14:09→19:29)
[2021-05-10] MEDS: Senna TAB 8.6 mg TAB PO SCH (19:30)
[2021-05-10] MEDS: Latanoprost 0.005% 2.5 ml BTL BOTH EYES SCH (19:30)
[2021-05-11] MEDS: levETIRAcetam 500 MG IVPREMIX 500 MG/100 ML BAG IVPB SCH ×3 (00:10→23:43)
[2021-05-11 04:10] LABS: Hematocrit 28 % (42-52); Hemoglobin 9.6 g/dL (14.0-18.0); Mean Corpuscular HGB Conc 34 g/dL (31-36); Mean Corpuscular Hemoglobin 31 pg (27-31); Mean Corpuscular Volume 91 fL (80-94); Mean Platelet Volume 8.9 fL (7.4-10.4); Platelet Count 301 10^3/uL (150-450); Red Blood Count 3.09 10^6 /uL (4.18-5.48); Red Cell Distribution Width 14 % (10-15); White Blood Count 10.8 10^3/uL (3.5-10.8)
[2021-05-11] MEDS: Saline FLUSH-CENTRAL 10 ML SYRINGE IV FLUSH SCH ×3 (04:13→20:11)
[2021-05-11 04:24] LABS: Calcium 7.9 mg/dL (8.6-10.3); Phosphorus 3.2 mg/dL (2.5-5.0); Potassium 3.7 mmol/L (3.5-5.0)
[2021-05-11 04:51] LABS: ABS Basophils 0.1 10^3/ul (0-0.2); ABS Eosinophils 0.4 10^3/ul (0-0.6); ABS Monocytes 0.8 10^3/ul (0-0.8); ABS Neutrophils 8.5 10^3/ul (1.5-7.7); Eosinophil % 3.5 %; Lymphocyte % 9.5 %
[2021-05-11] MEDS: Piperacillin/Tazobac ADVAN 3.375 GM in NS 0.9% 100 ml BAG 100 ML IV SCH ×3 (07:28→22:05)
[2021-05-11] MEDS: Nystatin SUSPENSION 100,000 UNITS/ML UDC PO SCH ×4 (07:39→19:54)
[2021-05-11] MEDS: Famotidine IV 10 MG/ML 2 ml VIAL (20 mg) IV SLOW PU SCH ×2 (07:39→19:54)
[2021-05-11] MEDS: Docusate LIQ 100 MG/10 ML UDC PO SCH (07:39)
[2021-05-11] MEDS: Amantadine SOLN ORALSYR 10 mg/ml NG TUBE SCH ×2 (07:41→19:56)
[2021-05-11] MEDS: DOXYcycline 100 MG in NS 0.9% 250 ml 250 ML IVPB SCH (07:42)
[2021-05-11] MEDS: Lactulose 30 ml UDC NG TUBE SCH ×3 (07:42→19:54)
[2021-05-11] MEDS: Timolol 0.5% OPTH.SOL BTL BOTH EYES SCH (07:43)
[2021-05-11] MEDS: Senna TAB 8.6 mg TAB PO SCH (19:54)
[2021-05-11] MEDS: Latanoprost 0.005% 2.5 ml BTL BOTH EYES SCH (19:54)
[2021-05-11] MEDS: Acetaminophen IV 1 GM/100ML 100 ML IV PRN (19:56)
[2021-05-12 04:08] LABS: Hematocrit 29 % (42-52); Hemoglobin 9.6 g/dL (14.0-18.0); Mean Corpuscular HGB Conc 34 g/dL (31-36); Mean Corpuscular Hemoglobin 31 pg (27-31); Mean Corpuscular Volume 91 fL (80-94); Mean Platelet Volume 8.5 fL (7.4-10.4); Platelet Count 339 10^3/uL (150-450); Red Blood Count 3.11 10^6 /uL (4.18-5.48); Red Cell Distribution Width 14 % (10-15); White Blood Count 10.8 10^3/uL (3.5-10.8)
[2021-05-12] MEDS: Saline FLUSH-CENTRAL 10 ML SYRINGE IV FLUSH SCH ×3 (04:19→22:03)
[2021-05-12 04:24] LABS: ABS Eosinophils 0.3 10^3/ul (0-0.6); ABS Lymphocytes 1.2 10^3/ul (1.0-4.8); ABS Monocytes 0.9 10^3/ul (0-0.8); ABS Neutrophils 8.3 10^3/ul (1.5-7.7); Eosinophil % 3.2 %; Lymphocyte % 11.1 %
[2021-05-12 04:25] LABS: Calcium 8.1 mg/dL (8.6-10.3); Potassium 3.8 mmol/L (3.5-5.0)
[2021-05-12] MEDS: Piperacillin/Tazobac ADVAN 3.375 GM in NS 0.9% 100 ml BAG 100 ML IV SCH ×2 (07:08→15:18)
[2021-05-12] MEDS: Lactulose 30 ml UDC NG TUBE SCH ×3 (07:08→22:02)
[2021-05-12] MEDS: Famotidine IV 10 MG/ML 2 ml VIAL (20 mg) IV SLOW PU SCH ×2 (07:08→21:38)
[2021-05-12] MEDS: Amantadine SOLN ORALSYR 10 mg/ml NG TUBE SCH ×2 (07:08→21:38)
[2021-05-12] MEDS: Nystatin SUSPENSION 100,000 UNITS/ML UDC PO SCH ×4 (07:08→21:37)
[2021-05-12] MEDS: Docusate LIQ 100 MG/10 ML UDC PO SCH (07:08)
[2021-05-12] MEDS: Timolol 0.5% OPTH.SOL BTL BOTH EYES SCH (07:25)
[2021-05-12 10:00] LABS: Urine Appearance Cloudy; Urine Bilirubin Negative (Negative); Urine Blood 1+ (Negative); Urine Color Yellow; Urine Glucose Negative (Negative); Urine Ketones Negative (Negative); Urine Nitrite Negative (Negative); Urine Protein Negative (Negative); Urine Specific Gravity 1.013 (1.002-1.030); Urine Urobilinogen Positive (Negative)
[2021-05-12 10:05] LABS: Urine Bacteria Absent (Absent); Urine Red Blood Cell 3+(>10/hpf) (Absent); Urine White Blood Cell Absent (Absent)
[2021-05-12] MEDS: levETIRAcetam 500 MG IVPREMIX 500 MG/100 ML BAG IVPB SCH (11:56)
[2021-05-12 12:03] LABS: PCO2 Arterial 36 mmHg (35-45); PO2 Arterial 82 mmHg (80-100)
[2021-05-12] MEDS: Acetaminophen IV 1 GM/100ML 100 ML IV PRN (16:29)
[2021-05-12] MEDS: Latanoprost 0.005% 2.5 ml BTL BOTH EYES SCH (21:38)
[2021-05-12] MEDS: Senna TAB 8.6 mg TAB PO SCH (22:02)
[2021-05-13] MEDS: Piperacillin/Tazobac ADVAN 3.375 GM in NS 0.9% 100 ml BAG 100 ML IV SCH ×3 (00:06→16:02)
[2021-05-13] MEDS: levETIRAcetam 500 MG IVPREMIX 500 MG/100 ML BAG IVPB SCH ×2 (01:15→12:33)
[2021-05-13 04:31] LABS: Hematocrit 28 % (42-52); Hemoglobin 9.6 g/dL (14.0-18.0); Mean Corpuscular HGB Conc 34 g/dL (31-36); Mean Corpuscular Hemoglobin 31 pg (27-31); Mean Corpuscular Volume 91 fL (80-94); Mean Platelet Volume 8.6 fL (7.4-10.4); Platelet Count 375 10^3/uL (150-450); Red Blood Count 3.11 10^6 /uL (4.18-5.48); Red Cell Distribution Width 14 % (10-15); White Blood Count 11.4 10^3/uL (3.5-10.8)
[2021-05-13 04:50] LABS: Calcium 8.3 mg/dL (8.6-10.3); Phosphorus 3.5 mg/dL (2.5-5.0); Potassium 3.7 mmol/L (3.5-5.0)
[2021-05-13 05:00] LABS: ABS Basophils 0.1 10^3/ul (0-0.2); ABS Eosinophils 0.3 10^3/ul (0-0.6); ABS Lymphocytes 1.2 10^3/ul (1.0-4.8); ABS Monocytes 0.7 10^3/ul (0-0.8); ABS Neutrophils 9.1 10^3/ul (1.5-7.7); Lymphocyte % 10.4 %
[2021-05-13] MEDS ORDERED: Potassium Chloride LIQUID 20 MEQ/15 ML LIQUID PO ONE (05:02)
[2021-05-13] MEDS: Saline FLUSH-CENTRAL 10 ML SYRINGE IV FLUSH SCH ×3 (05:34→22:06)
[2021-05-13] MEDS: Amantadine SOLN ORALSYR 10 mg/ml NG TUBE SCH ×2 (08:08→22:14)
[2021-05-13] MEDS: Nystatin SUSPENSION 100,000 UNITS/ML UDC PO SCH ×4 (08:08→22:14)
[2021-05-13] MEDS: Famotidine IV 10 MG/ML 2 ml VIAL (20 mg) IV SLOW PU SCH ×2 (08:09→22:14)
[2021-05-13] MEDS: Timolol 0.5% OPTH.SOL BTL BOTH EYES SCH (08:09)
[2021-05-13] MEDS: Senna TAB 8.6 mg TAB PO SCH (22:06)
[2021-05-13] MEDS: Latanoprost 0.005% 2.5 ml BTL BOTH EYES SCH (22:06)
[2021-05-14] MEDS ORDERED: NS 0.9% 100 ml BAG 100 ML ONE ×3 (00:30→23:36)
[2021-05-14] MEDS: levETIRAcetam 500 MG IVPREMIX 500 MG/100 ML BAG IVPB SCH ×2 (00:31→12:39)
[2021-05-14] MEDS: Piperacillin/Tazobac ADVAN 3.375 GM in NS 0.9% 100 ml BAG 100 ML IV SCH ×4 (00:31→23:47)
[2021-05-14] MEDS: Amantadine SOLN ORALSYR 10 mg/ml NG TUBE SCH ×2 (08:22→21:43)
[2021-05-14] MEDS: Nystatin SUSPENSION 100,000 UNITS/ML UDC PO SCH ×4 (08:23→20:00)
[2021-05-14] MEDS: Famotidine IV 10 MG/ML 2 ml VIAL (20 mg) IV SLOW PU SCH ×2 (08:23→20:00)
[2021-05-14] MEDS: Saline FLUSH-CENTRAL 10 ML SYRINGE IV FLUSH SCH ×3 (08:23→21:44)
[2021-05-14] MEDS: Timolol 0.5% OPTH.SOL BTL BOTH EYES SCH (08:34)
[2021-05-14] MEDS: Latanoprost 0.005% 2.5 ml BTL BOTH EYES SCH (20:16)
[2021-05-14] MEDS: Senna TAB 8.6 mg TAB PO SCH (20:22)
[2021-05-15] MEDS: levETIRAcetam 500 MG IVPREMIX 500 MG/100 ML BAG IVPB SCH ×2 (01:05→12:08)
[2021-05-15] MEDS: Saline FLUSH-CENTRAL 10 ML SYRINGE IV FLUSH SCH ×3 (05:58→22:02)
[2021-05-15] MEDS: Famotidine IV 10 MG/ML 2 ml VIAL (20 mg) IV SLOW PU SCH ×2 (08:06→21:48)
[2021-05-15] MEDS: Nystatin SUSPENSION 100,000 UNITS/ML UDC PO SCH ×4 (08:06→21:47)
[2021-05-15] MEDS: Piperacillin/Tazobac ADVAN 3.375 GM in NS 0.9% 100 ml BAG 100 ML IV SCH ×2 (08:06→15:22)
[2021-05-15] MEDS: Amantadine SOLN ORALSYR 10 mg/ml NG TUBE SCH ×2 (08:06→21:50)
[2021-05-15] MEDS: Timolol 0.5% OPTH.SOL BTL BOTH EYES SCH (08:40)
[2021-05-15] MEDS: Acetaminophen IV 1 GM/100ML 100 ML IV PRN (15:22)
[2021-05-15] MEDS: Senna TAB 8.6 mg TAB PO SCH (21:40)
[2021-05-15] MEDS: Latanoprost 0.005% 2.5 ml BTL BOTH EYES SCH (21:48)
[2021-05-15] MEDS ORDERED: NS 0.9% 100 ml BAG 100 ML ONE (23:46)
[2021-05-16] MEDS: levETIRAcetam 500 MG IVPREMIX 500 MG/100 ML BAG IVPB SCH ×2 (01:07→11:01)
[2021-05-16] MEDS: Piperacillin/Tazobac ADVAN 3.375 GM in NS 0.9% 100 ml BAG 100 ML IV SCH ×4 (01:07→22:51)
[2021-05-16] MEDS: Saline FLUSH-CENTRAL 10 ML SYRINGE IV FLUSH SCH ×3 (04:33→20:09)
[2021-05-16] MEDS: Famotidine IV 10 MG/ML 2 ml VIAL (20 mg) IV SLOW PU SCH ×2 (08:53→19:26)
[2021-05-16] MEDS: Timolol 0.5% OPTH.SOL BTL BOTH EYES SCH (09:30)
[2021-05-16] MEDS: Amantadine SOLN ORALSYR 10 mg/ml NG TUBE SCH ×2 (09:31→19:26)
[2021-05-16] MEDS: Nystatin SUSPENSION 100,000 UNITS/ML UDC PO SCH ×4 (09:31→19:26)
[2021-05-16] MEDS: Acetaminophen IV 1 GM/100ML 100 ML IV PRN (15:30)
[2021-05-16] MEDS: Senna TAB 8.6 mg TAB PO SCH (19:26)
[2021-05-16] MEDS: Latanoprost 0.005% 2.5 ml BTL BOTH EYES SCH (19:27)
[2021-05-17] MEDS: levETIRAcetam 500 MG IVPREMIX 500 MG/100 ML BAG IVPB SCH ×2 (00:22→12:51)
[2021-05-17] MEDS: Saline FLUSH-CENTRAL 10 ML SYRINGE IV FLUSH SCH ×3 (04:04→20:02)
[2021-05-17] MEDS: Famotidine IV 10 MG/ML 2 ml VIAL (20 mg) IV SLOW PU SCH ×2 (08:23→19:40)
[2021-05-17] MEDS: Nystatin SUSPENSION 100,000 UNITS/ML UDC PO SCH ×4 (08:23→19:40)
[2021-05-17] MEDS: Piperacillin/Tazobac ADVAN 3.375 GM in NS 0.9% 100 ml BAG 100 ML IV SCH ×2 (08:23→16:28)
[2021-05-17] MEDS: Amantadine SOLN ORALSYR 10 mg/ml NG TUBE SCH ×2 (08:26→19:40)
[2021-05-17] MEDS: Timolol 0.5% OPTH.SOL BTL BOTH EYES SCH (08:52)
[2021-05-17] MEDS: Acetaminophen IV 1 GM/100ML 100 ML IV PRN (13:24)
[2021-05-17 15:39] LABS: Urine Appearance Clear; Urine Bilirubin Negative (Negative); Urine Blood Negative (Negative); Urine Color Yellow; Urine Glucose Negative (Negative); Urine Ketones Negative (Negative); Urine Nitrite Negative (Negative); Urine Protein Negative (Negative); Urine Specific Gravity 1.017 (1.002-1.030); Urine Urobilinogen Positive (Negative)
[2021-05-17] MEDS ORDERED: LORazepam 2 mg VIAL 1 ml IV PUSH PRN (17:39)
[2021-05-17] MEDS ORDERED: Lorazepam PYXIS KEY PRN (17:39)
[2021-05-17] MEDS: Latanoprost 0.005% 2.5 ml BTL BOTH EYES SCH (19:40)
[2021-05-17] MEDS: Senna TAB 8.6 mg TAB PO SCH (19:41)
[2021-05-18] MEDS: Piperacillin/Tazobac ADVAN 3.375 GM in NS 0.9% 100 ml BAG 100 ML IV SCH ×2 (01:12→07:36)
[2021-05-18] MEDS: levETIRAcetam 500 MG IVPREMIX 500 MG/100 ML BAG IVPB SCH ×2 (01:13→13:19)
[2021-05-18] MEDS: Saline FLUSH-CENTRAL 10 ML SYRINGE IV FLUSH SCH ×3 (06:28→21:14)
[2021-05-18 06:36] LABS: Hematocrit 29 % (42-52); Hemoglobin 9.7 g/dL (14.0-18.0); Mean Corpuscular HGB Conc 34 g/dL (31-36); Mean Corpuscular Hemoglobin 31 pg (27-31); Mean Corpuscular Volume 91 fL (80-94); Mean Platelet Volume 7.8 fL (7.4-10.4); Platelet Count 391 10^3/uL (150-450); Red Blood Count 3.12 10^6 /uL (4.18-5.48); Red Cell Distribution Width 14 % (10-15); White Blood Count 7.1 10^3/uL (3.5-10.8)
[2021-05-18 06:51] LABS: Calcium 8.4 mg/dL (8.6-10.3); Potassium 4.1 mmol/L (3.5-5.0)
[2021-05-18] MEDS: Amantadine SOLN ORALSYR 10 mg/ml NG TUBE SCH ×2 (07:36→20:58)
[2021-05-18] MEDS: Famotidine IV 10 MG/ML 2 ml VIAL (20 mg) IV SLOW PU SCH (07:36)
[2021-05-18] MEDS: Nystatin SUSPENSION 100,000 UNITS/ML UDC PO SCH ×4 (07:36→21:13)
[2021-05-18] MEDS: Timolol 0.5% OPTH.SOL BTL BOTH EYES SCH (07:37)
[2021-05-18] MEDS ORDERED: Magnesium Hydroxide LIQ 30 ML UDC PO PRN (18:04)
[2021-05-18] MEDS: Latanoprost 0.005% 2.5 ml BTL BOTH EYES SCH (20:37)
[2021-05-18] MEDS: Senna TAB 8.6 mg TAB PO SCH (20:38)
[2021-05-18] MEDS: Acetaminophen IV 1 GM/100ML 100 ML IV PRN (23:18)
[2021-05-19] MEDS: levETIRAcetam 500 MG IVPREMIX 500 MG/100 ML BAG IVPB SCH ×2 (01:39→13:47)
[2021-05-19] MEDS: Saline FLUSH-CENTRAL 10 ML SYRINGE IV FLUSH SCH ×3 (05:13→21:24)
[2021-05-19 05:56] LABS: ABS Eosinophils 0.4 10^3/ul (0-0.6); ABS Lymphocytes 1.1 10^3/ul (1.0-4.8); ABS Monocytes 0.6 10^3/ul (0-0.8); ABS Neutrophils 4.5 10^3/ul (1.5-7.7); Eosinophil % 5.6 %; Hematocrit 33 % (42-52); Hemoglobin 10.8 g/dL (14.0-18.0); Lymphocyte % 16.6 %; Mean Corpuscular HGB Conc 33 g/dL (31-36); Mean Corpuscular Hemoglobin 31 pg (27-31); Mean Corpuscular Volume 93 fL (80-94); Platelet Count 371 10^3/uL (150-450); Red Blood Count 3.53 10^6 /uL (4.18-5.48); Red Cell Distribution Width 15 % (10-15); White Blood Count 6.6 10^3/uL (3.5-10.8)
[2021-05-19 06:08] LABS: Potassium 4.1 mmol/L (3.5-5.0)
[2021-05-19] MEDS: Nystatin SUSPENSION 100,000 UNITS/ML UDC PO SCH ×4 (08:43→21:10)
[2021-05-19] MEDS: Amantadine SOLN ORALSYR 10 mg/ml NG TUBE SCH (08:44)
[2021-05-19] MEDS ORDERED: LORazepam 2 mg VIAL 1 ml IV PUSH PRN (08:48)
[2021-05-19] MEDS ORDERED: Lorazepam PYXIS KEY PRN (08:48)
[2021-05-19] MEDS: Timolol 0.5% OPTH.SOL BTL BOTH EYES SCH (09:04)
[2021-05-19] MEDS: Senna TAB 8.6 mg TAB PO SCH (21:10)
[2021-05-19] MEDS: Latanoprost 0.005% 2.5 ml BTL BOTH EYES SCH (21:12)
[2021-05-20] MEDS: levETIRAcetam 500 MG IVPREMIX 500 MG/100 ML BAG IVPB SCH (00:39)
[2021-05-20] MEDS: Saline FLUSH-CENTRAL 10 ML SYRINGE IV FLUSH SCH (04:01)
[2021-05-20] MEDS: Acetaminophen IV 1 GM/100ML 100 ML IV PRN (05:35)
[2021-05-20 06:58] LABS: Hematocrit 32 % (42-52); Hemoglobin 10.6 g/dL (14.0-18.0); Mean Corpuscular HGB Conc 34 g/dL (31-36); Mean Corpuscular Hemoglobin 31 pg (27-31); Mean Corpuscular Volume 92 fL (80-94); Mean Platelet Volume 7.9 fL (7.4-10.4); Platelet Count 348 10^3/uL (150-450); Red Blood Count 3.44 10^6 /uL (4.18-5.48); Red Cell Distribution Width 14 % (10-15); White Blood Count 8.1 10^3/uL (3.5-10.8)
[2021-05-20 07:14] LABS: Calcium 9.1 mg/dL (8.6-10.3); Magnesium 1.9 mg/dL (1.9-2.7)
[2021-05-20] MEDS: Nystatin SUSPENSION 100,000 UNITS/ML UDC PO SCH (10:55)
[2021-05-20] MEDS: Timolol 0.5% OPTH.SOL BTL BOTH EYES SCH (10:55)
[2021-05-20 12:27] VITALS: BP 108/70
== END 2021-05-20 11:55 | DRG 23 ==
LOC: ED 11:33 → ICU 13:31 → SUATTDRO 13:31 → ICU 14:16 → SSU 05-17 23:25
PROVIDERS: ADMIT Internal Medicine Critical Care Medicine; ATTEND Internal Medicine

== ENCOUNTER 2021-05-20 07:35 | Inpatient (IN) ==
[2021-05-20] MEDS ORDERED: Lorazepam PYXIS KEY PRN (19:31)
[2021-05-20] MEDS: levETIRAcetam 500 MG IVPREMIX 500 MG/100 ML BAG IV SCH (20:57)
[2021-05-20] MEDS: Latanoprost 0.005% 2.5 ml BTL BOTH EYES SCH (21:09)
[2021-05-20] MEDS: Saline FLUSH-CENTRAL 10 ML SYRINGE CENT\\PICC SCH (21:09)
[2021-05-21] MEDS: Saline FLUSH-CENTRAL 10 ML SYRINGE CENT\\PICC SCH ×3 (05:05→18:07)
[2021-05-21 07:02] LABS: ABS Eosinophils 0.4 10^3/ul (0-0.6); ABS Lymphocytes 1.1 10^3/ul (1.0-4.8); ABS Monocytes 0.7 10^3/ul (0-0.8); ABS Neutrophils 4.4 10^3/ul (1.5-7.7); Eosinophil % 6.2 %; Hematocrit 32 % (42-52); Hemoglobin 10.9 g/dL (14.0-18.0); Lymphocyte % 16.8 %; Mean Corpuscular HGB Conc 34 g/dL (31-36); Mean Corpuscular Hemoglobin 31 pg (27-31); Mean Corpuscular Volume 92 fL (80-94); Mean Platelet Volume 7.9 fL (7.4-10.4); Nucleated Red Blood Cells % 0.1; Platelet Count 290 10^3/uL (150-450); Red Blood Count 3.49 10^6 /uL (4.18-5.48); Red Cell Distribution Width 14 % (10-15); White Blood Count 6.7 10^3/uL (3.5-10.8)
[2021-05-21 08:00] LABS: Albumin 3.2 g/dL (3.2-5.2); Potassium 4.6 mmol/L (3.5-5.0); Total Bilirubin 0.5 mg/dL (0.2-1.0)
[2021-05-21 08:05] LABS: Globulin 2.7 g/dL (2-4); Total Protein 5.9 g/dL (6.4-8.9)
[2021-05-21 08:06] LABS: Albumin/Globulin Ratio 1.2 (1-3)
[2021-05-21] MEDS: levETIRAcetam 500 MG IVPREMIX 500 MG/100 ML BAG IV SCH ×2 (08:28→20:20)
[2021-05-21] MEDS: Timolol 0.5% OPTH.SOL BTL BOTH EYES SCH ×2 (08:33→08:56)
[2021-05-21] MEDS ORDERED: Amantadine LIQ 50 mg/5 ml UDC NG TUBE SCH (09:00)
[2021-05-21] MEDS: Heparin 5000 UNITS/ML 1 mL VIAL SUBCUT SCH (20:26)
[2021-05-21] MEDS: Latanoprost 0.005% 2.5 ml BTL BOTH EYES SCH (20:26)
[2021-05-22] MEDS: Saline FLUSH-CENTRAL 10 ML SYRINGE CENT\\PICC SCH ×3 (06:38→18:08)
[2021-05-22] MEDS: levETIRAcetam 500 MG IVPREMIX 500 MG/100 ML BAG IV SCH ×2 (08:18→20:05)
[2021-05-22] MEDS ORDERED: Amantadine SOLN ORALSYR 10 mg/ml NG TUBE SCH (09:00)
[2021-05-22] MEDS: Timolol 0.5% OPTH.SOL BTL BOTH EYES SCH (10:18)
[2021-05-22] MEDS: Amantadine SOLN ORALSYR 10 mg/ml PO SCH (10:18)
[2021-05-22] MEDS: Heparin 5000 UNITS/ML 1 mL VIAL SUBCUT SCH ×2 (10:23→20:04)
[2021-05-22] MEDS: Latanoprost 0.005% 2.5 ml BTL BOTH EYES SCH (20:04)
[2021-05-23] MEDS: Saline FLUSH-CENTRAL 10 ML SYRINGE CENT\\PICC SCH ×3 (06:14→19:36)
[2021-05-23] MEDS: levETIRAcetam 500 MG IVPREMIX 500 MG/100 ML BAG IV SCH ×2 (07:41→19:25)
[2021-05-23] MEDS: Amantadine SOLN ORALSYR 10 mg/ml PO SCH (09:09)
[2021-05-23] MEDS: Heparin 5000 UNITS/ML 1 mL VIAL SUBCUT SCH ×2 (09:09→21:48)
[2021-05-23] MEDS: Timolol 0.5% OPTH.SOL BTL BOTH EYES SCH (09:14)
[2021-05-23] MEDS: Latanoprost 0.005% 2.5 ml BTL BOTH EYES SCH (19:37)
[2021-05-24] MEDS: Saline FLUSH-CENTRAL 10 ML SYRINGE CENT\\PICC SCH ×3 (06:21→18:40)
[2021-05-24] MEDS: levETIRAcetam 500 MG IVPREMIX 500 MG/100 ML BAG IV SCH ×2 (09:08→19:55)
[2021-05-24] MEDS: Timolol 0.5% OPTH.SOL BTL BOTH EYES SCH ×2 (11:16→11:47)
[2021-05-24] MEDS: Heparin 5000 UNITS/ML 1 mL VIAL SUBCUT SCH ×2 (11:22→20:11)
[2021-05-24] MEDS: LORazepam 2 mg VIAL 1 ml IV PUSH PRN (13:51)
[2021-05-24] MEDS: Latanoprost 0.005% 2.5 ml BTL BOTH EYES SCH (20:10)
[2021-05-25] MEDS: Saline FLUSH-CENTRAL 10 ML SYRINGE CENT\\PICC SCH ×3 (05:16→20:46)
[2021-05-25] MEDS: levETIRAcetam 500 MG IVPREMIX 500 MG/100 ML BAG IV SCH ×2 (08:11→19:56)
[2021-05-25] MEDS: Timolol 0.5% OPTH.SOL BTL BOTH EYES SCH ×2 (11:04→11:17)
[2021-05-25] MEDS: Heparin 5000 UNITS/ML 1 mL VIAL SUBCUT SCH ×2 (11:04→20:53)
[2021-05-25] MEDS: LORazepam 2 mg VIAL 1 ml IV PUSH PRN (15:57)
[2021-05-25] MEDS: Latanoprost 0.005% 2.5 ml BTL BOTH EYES SCH (20:50)
[2021-05-26 05:16] LABS: ABS Eosinophils 0.2 10^3/ul (0-0.6); ABS Lymphocytes 0.9 10^3/ul (1.0-4.8); ABS Monocytes 0.4 10^3/ul (0-0.8); ABS Neutrophils 4.7 10^3/ul (1.5-7.7); Eosinophil % 3.3 %; Hematocrit 30 % (42-52); Hemoglobin 10.1 g/dL (14.0-18.0); Lymphocyte % 14.5 %; Mean Corpuscular HGB Conc 34 g/dL (31-36); Mean Corpuscular Hemoglobin 31 pg (27-31); Mean Corpuscular Volume 90 fL (80-94); Mean Platelet Volume 8.4 fL (7.4-10.4); Platelet Count 190 10^3/uL (150-450); Red Blood Count 3.28 10^6 /uL (4.18-5.48); Red Cell Distribution Width 14 % (10-15); White Blood Count 6.2 10^3/uL (3.5-10.8)
[2021-05-26] MEDS: Saline FLUSH-CENTRAL 10 ML SYRINGE CENT\\PICC SCH ×3 (05:35→20:14)
[2021-05-26] MEDS: Heparin 5000 UNITS/ML 1 mL VIAL SUBCUT SCH ×3 (10:19→22:32)
[2021-05-26] MEDS: levETIRAcetam 500 MG IVPREMIX 500 MG/100 ML BAG IV SCH ×2 (10:19→20:14)
[2021-05-26] MEDS: Timolol 0.5% OPTH.SOL BTL BOTH EYES SCH (12:52)
[2021-05-26] MEDS: LORazepam 2 mg VIAL 1 ml IV PUSH PRN (17:25)
[2021-05-26] MEDS ORDERED: NS 0.9% 250 ml 250 ML IV ONE (20:07)
[2021-05-26] MEDS: Latanoprost 0.005% 2.5 ml BTL BOTH EYES SCH (21:14)
[2021-05-27] MEDS: Saline FLUSH-CENTRAL 10 ML SYRINGE CENT\\PICC SCH ×3 (05:26→20:03)
[2021-05-27 07:23] LABS: Urine Appearance Turbid
[2021-05-27 07:25] LABS: Urine Color Red
[2021-05-27] MEDS: levETIRAcetam 500 MG IVPREMIX 500 MG/100 ML BAG IV SCH ×2 (08:05→20:02)
[2021-05-27] MEDS: Heparin 5000 UNITS/ML 1 mL VIAL SUBCUT SCH ×2 (09:10→20:08)
[2021-05-27] MEDS: Timolol 0.5% OPTH.SOL BTL BOTH EYES SCH (09:11)
[2021-05-27] MEDS ORDERED: NS 0.9% 250 ml 250 ML IV ONE (12:34)
[2021-05-27 17:48] LABS: Urine Appearance Cloudy; Urine Bilirubin Negative (Negative); Urine Blood 2+ (Negative); Urine Color Amber; Urine Glucose Negative (Negative); Urine Ketones Negative (Negative); Urine Nitrite Negative (Negative); Urine Protein Negative (Negative); Urine Specific Gravity 1.014 (1.002-1.030); Urine Urobilinogen Positive (Negative)
[2021-05-27 17:53] LABS: Urine Bacteria 1+ (Absent); Urine Red Blood Cell 3+(>10/hpf) (Absent); Urine Squamous Epithelial Cell Present (Absent); Urine White Blood Cell 3+(>20/hpf) (Absent); Urine Yeast Present (Absent)
[2021-05-27] MEDS: Latanoprost 0.005% 2.5 ml BTL BOTH EYES SCH (20:04)
[2021-05-28] MEDS: Saline FLUSH-CENTRAL 10 ML SYRINGE CENT\\PICC SCH ×4 (06:17→22:28)
[2021-05-28] MEDS: levETIRAcetam 500 MG IVPREMIX 500 MG/100 ML BAG IV SCH (09:19)
[2021-05-28] MEDS: Timolol 0.5% OPTH.SOL BTL BOTH EYES SCH (09:22)
[2021-05-28] MEDS: Heparin 5000 UNITS/ML 1 mL VIAL SUBCUT SCH ×3 (09:22→22:29)
[2021-05-28 10:06] LABS: ABS Eosinophils 0.2 10^3/ul (0-0.6); ABS Lymphocytes 0.7 10^3/ul (1.0-4.8); ABS Monocytes 0.5 10^3/ul (0-0.8); ABS Neutrophils 3.4 10^3/ul (1.5-7.7); Eosinophil % 3.2 %; Hematocrit 30 % (42-52); Hemoglobin 9.9 g/dL (14.0-18.0); Lymphocyte % 15.4 %; Mean Corpuscular HGB Conc 33 g/dL (31-36); Mean Corpuscular Hemoglobin 30 pg (27-31); Mean Corpuscular Volume 91 fL (80-94); Mean Platelet Volume 8.3 fL (7.4-10.4); Platelet Count 137 10^3/uL (150-450); Red Blood Count 3.28 10^6 /uL (4.18-5.48); Red Cell Distribution Width 14 % (10-15); White Blood Count 4.8 10^3/uL (3.5-10.8)
[2021-05-28 10:30] LABS: Albumin 3.2 g/dL (3.2-5.2); Albumin/Globulin Ratio 1.1 (1-3); Calcium 8.8 mg/dL (8.6-10.3); Globulin 2.9 g/dL (2-4); Potassium 4.1 mmol/L (3.5-5.0); Total Bilirubin 0.4 mg/dL (0.2-1.0); Total Protein 6.1 g/dL (6.4-8.9); eGFR CKD-EPI 94.7 (>60)
[2021-05-28] MEDS ORDERED: Amoxicillin/Clavul 500/125 TAB (Augmentin 500 mg tab) PO ONE (11:01)
[2021-05-28] MEDS: cefTRIAXone 1 gm/50 mL NS BAG 1 GM/50 ML BAG IVPB SCH (14:06)
[2021-05-28] MEDS ORDERED: Amoxicillin/Clavul 500/125 TAB (Augmentin 500 mg tab) PO SCH (21:00)
[2021-05-28] MEDS: Latanoprost 0.005% 2.5 ml BTL BOTH EYES SCH ×2 (21:10→22:29)
[2021-05-29] MEDS: Saline FLUSH-CENTRAL 10 ML SYRINGE CENT\\PICC SCH ×3 (08:18→19:22)
[2021-05-29] MEDS: Heparin 5000 UNITS/ML 1 mL VIAL SUBCUT SCH ×2 (10:47→20:51)
[2021-05-29] MEDS: Timolol 0.5% OPTH.SOL BTL BOTH EYES SCH (10:48)
[2021-05-29] MEDS: cefTRIAXone 1 gm/50 mL NS BAG 1 GM/50 ML BAG IVPB SCH (14:10)
[2021-05-29] MEDS: Latanoprost 0.005% 2.5 ml BTL BOTH EYES SCH (19:34)
[2021-05-30] MEDS: Saline FLUSH-CENTRAL 10 ML SYRINGE CENT\\PICC SCH ×3 (03:50→16:18)
[2021-05-30] MEDS: Heparin 5000 UNITS/ML 1 mL VIAL SUBCUT SCH ×2 (09:07→19:45)
[2021-05-30] MEDS: Timolol 0.5% OPTH.SOL BTL BOTH EYES SCH (09:07)
[2021-05-30] MEDS: cefTRIAXone 1 gm/50 mL NS BAG 1 GM/50 ML BAG IVPB SCH (14:20)
[2021-05-30] MEDS: Senna TAB 8.6 mg TAB PO PRN (17:47)
[2021-05-30] MEDS: Latanoprost 0.005% 2.5 ml BTL BOTH EYES SCH ×2 (19:18→19:54)
[2021-05-30] MEDS: Nitrofurantoin (macrocrystals) 50 mg CAP PO SCH (23:00)
[2021-05-31] MEDS: Saline FLUSH-CENTRAL 10 ML SYRINGE CENT\\PICC SCH ×3 (06:58→20:04)
[2021-05-31] MEDS: Heparin 5000 UNITS/ML 1 mL VIAL SUBCUT SCH ×2 (09:34→20:04)
[2021-05-31] MEDS: Timolol 0.5% OPTH.SOL BTL BOTH EYES SCH (09:36)
[2021-05-31] MEDS: Nitrofurantoin (macrocrystals) 50 mg CAP PO SCH ×4 (09:50→21:22)
[2021-05-31] MEDS: Latanoprost 0.005% 2.5 ml BTL BOTH EYES SCH (21:22)
[2021-06-01] MEDS: Saline FLUSH-CENTRAL 10 ML SYRINGE CENT\\PICC SCH ×3 (06:12→20:09)
[2021-06-01] MEDS: Nitrofurantoin (macrocrystals) 50 mg CAP PO SCH ×4 (09:34→19:52)
[2021-06-01] MEDS: Heparin 5000 UNITS/ML 1 mL VIAL SUBCUT SCH ×2 (09:35→22:16)
[2021-06-01] MEDS: Timolol 0.5% OPTH.SOL BTL BOTH EYES SCH (09:37)
[2021-06-01] MEDS: Latanoprost 0.005% 2.5 ml BTL BOTH EYES SCH (20:09)
[2021-06-02] MEDS: Saline FLUSH-CENTRAL 10 ML SYRINGE CENT\\PICC SCH ×2 (02:25→08:53)
[2021-06-02] MEDS: Heparin 5000 UNITS/ML 1 mL VIAL SUBCUT SCH ×3 (08:19→23:15)
[2021-06-02] MEDS: Timolol 0.5% OPTH.SOL BTL BOTH EYES SCH (08:19)
[2021-06-02] MEDS: Nitrofurantoin (macrocrystals) 50 mg CAP PO SCH ×4 (08:21→22:46)
[2021-06-02] MEDS: Latanoprost 0.005% 2.5 ml BTL BOTH EYES SCH (21:55)
[2021-06-03] MEDS: Nitrofurantoin (macrocrystals) 50 mg CAP PO SCH ×4 (10:12→23:38)
[2021-06-03] MEDS: Heparin 5000 UNITS/ML 1 mL VIAL SUBCUT SCH ×2 (10:20→23:38)
[2021-06-03] MEDS: Timolol 0.5% OPTH.SOL BTL BOTH EYES SCH (10:21)
[2021-06-03] MEDS: Latanoprost 0.005% 2.5 ml BTL BOTH EYES SCH (19:12)
[2021-06-04 07:05] LABS: ABS Eosinophils 0.4 10^3/ul (0-0.6); ABS Monocytes 0.5 10^3/ul (0-0.8); ABS Neutrophils 3.3 10^3/ul (1.5-7.7); Eosinophil % 7.9 %; Hematocrit 30 % (42-52); Hemoglobin 10.1 g/dL (14.0-18.0); Lymphocyte % 19.4 %; Mean Corpuscular HGB Conc 34 g/dL (31-36); Mean Corpuscular Hemoglobin 31 pg (27-31); Mean Corpuscular Volume 91 fL (80-94); Mean Platelet Volume 8.2 fL (7.4-10.4); Platelet Count 220 10^3/uL (150-450); Red Blood Count 3.31 10^6 /uL (4.18-5.48); Red Cell Distribution Width 15 % (10-15); White Blood Count 5.3 10^3/uL (3.5-10.8)
[2021-06-04 07:31] LABS: Albumin 3.2 g/dL (3.2-5.2); Calcium 8.9 mg/dL (8.6-10.3); Globulin 3.2 g/dL (2-4); Potassium 4.1 mmol/L (3.5-5.0); Total Bilirubin 0.3 mg/dL (0.2-1.0); Total Protein 6.4 g/dL (6.4-8.9); eGFR CKD-EPI 98.1 (>60)
[2021-06-04] MEDS: Nitrofurantoin (macrocrystals) 50 mg CAP PO SCH ×5 (10:08→22:00)
[2021-06-04] MEDS: Heparin 5000 UNITS/ML 1 mL VIAL SUBCUT SCH ×2 (10:09→20:42)
[2021-06-04] MEDS: Timolol 0.5% OPTH.SOL BTL BOTH EYES SCH (10:10)
[2021-06-04] MEDS: Senna TAB 8.6 mg TAB PO PRN (17:48)
[2021-06-04] MEDS: Latanoprost 0.005% 2.5 ml BTL BOTH EYES SCH (19:47)
[2021-06-05] MEDS: Nitrofurantoin (macrocrystals) 50 mg CAP PO SCH ×4 (08:44→21:01)
[2021-06-05] MEDS: Heparin 5000 UNITS/ML 1 mL VIAL SUBCUT SCH ×2 (08:44→22:06)
[2021-06-05] MEDS: Timolol 0.5% OPTH.SOL BTL BOTH EYES SCH (08:44)
[2021-06-05] MEDS: Latanoprost 0.005% 2.5 ml BTL BOTH EYES SCH (18:56)
[2021-06-06] MEDS: Nitrofurantoin (macrocrystals) 50 mg CAP PO SCH ×4 (08:52→22:28)
[2021-06-06] MEDS: Heparin 5000 UNITS/ML 1 mL VIAL SUBCUT SCH ×3 (08:52→20:25)
[2021-06-06] MEDS: Timolol 0.5% OPTH.SOL BTL BOTH EYES SCH (08:56)
[2021-06-06] MEDS: Latanoprost 0.005% 2.5 ml BTL BOTH EYES SCH (20:26)
[2021-06-07] MEDS: Heparin 5000 UNITS/ML 1 mL VIAL SUBCUT SCH ×2 (09:41→23:19)
[2021-06-07] MEDS: Timolol 0.5% OPTH.SOL BTL BOTH EYES SCH (09:44)
[2021-06-07] MEDS: Latanoprost 0.005% 2.5 ml BTL BOTH EYES SCH (23:26)
[2021-06-08] MEDS: Heparin 5000 UNITS/ML 1 mL VIAL SUBCUT SCH ×2 (08:45→19:23)
[2021-06-08] MEDS: Timolol 0.5% OPTH.SOL BTL BOTH EYES SCH (08:46)
[2021-06-08] MEDS: Latanoprost 0.005% 2.5 ml BTL BOTH EYES SCH (19:32)
[2021-06-09] MEDS: Timolol 0.5% OPTH.SOL BTL BOTH EYES SCH (09:05)
[2021-06-09] MEDS: Heparin 5000 UNITS/ML 1 mL VIAL SUBCUT SCH (09:06)
[2021-06-10] MEDS: Latanoprost 0.005% 2.5 ml BTL BOTH EYES SCH ×2 (01:10→20:38)
[2021-06-10] MEDS: Heparin 5000 UNITS/ML 1 mL VIAL SUBCUT SCH ×3 (01:20→20:38)
[2021-06-10] MEDS: Timolol 0.5% OPTH.SOL BTL BOTH EYES SCH (09:37)
[2021-06-11 06:55] LABS: ABS Basophils 0.1 10^3/ul (0-0.2); ABS Eosinophils 0.4 10^3/ul (0-0.6); ABS Lymphocytes 1.4 10^3/ul (1.0-4.8); ABS Monocytes 0.6 10^3/ul (0-0.8); ABS Neutrophils 4.4 10^3/ul (1.5-7.7); Eosinophil % 6.4 %; Hematocrit 35 % (42-52); Hemoglobin 11.6 g/dL (14.0-18.0); Mean Corpuscular HGB Conc 33 g/dL (31-36); Mean Corpuscular Hemoglobin 30 pg (27-31); Mean Corpuscular Volume 91 fL (80-94); Platelet Count 340 10^3/uL (150-450); Red Blood Count 3.85 10^6 /uL (4.18-5.48); Red Cell Distribution Width 15 % (10-15); White Blood Count 6.8 10^3/uL (3.5-10.8)
[2021-06-11 07:14] LABS: Albumin/Globulin Ratio 1.1 (1-3); Calcium 9.7 mg/dL (8.6-10.3); Globulin 3.6 g/dL (2-4); Total Bilirubin 0.6 mg/dL (0.2-1.0); Total Protein 7.6 g/dL (6.4-8.9); eGFR CKD-EPI 90.4 (>60)
[2021-06-11] MEDS: Timolol 0.5% OPTH.SOL BTL BOTH EYES SCH (10:59)
[2021-06-11] MEDS: Heparin 5000 UNITS/ML 1 mL VIAL SUBCUT SCH ×2 (10:59→23:19)
[2021-06-11] MEDS: Latanoprost 0.005% 2.5 ml BTL BOTH EYES SCH (23:18)
[2021-06-12] MEDS: Heparin 5000 UNITS/ML 1 mL VIAL SUBCUT SCH ×2 (08:41→20:37)
[2021-06-12] MEDS: Timolol 0.5% OPTH.SOL BTL BOTH EYES SCH (08:44)
[2021-06-12] MEDS: Latanoprost 0.005% 2.5 ml BTL BOTH EYES SCH (18:15)
[2021-06-12] MEDS: Senna TAB 8.6 mg TAB PO PRN (20:37)
[2021-06-13] MEDS: Timolol 0.5% OPTH.SOL BTL BOTH EYES SCH (10:56)
[2021-06-13] MEDS: Heparin 5000 UNITS/ML 1 mL VIAL SUBCUT SCH ×2 (10:56→20:21)
[2021-06-13] MEDS: Latanoprost 0.005% 2.5 ml BTL BOTH EYES SCH (20:42)
[2021-06-14] MEDS: Timolol 0.5% OPTH.SOL BTL BOTH EYES SCH (09:29)
[2021-06-14] MEDS: Heparin 5000 UNITS/ML 1 mL VIAL SUBCUT SCH ×3 (09:30→20:47)
[2021-06-14] MEDS: Latanoprost 0.005% 2.5 ml BTL BOTH EYES SCH (18:38)
[2021-06-15] MEDS: Heparin 5000 UNITS/ML 1 mL VIAL SUBCUT SCH ×2 (08:52→19:30)
[2021-06-15] MEDS: Timolol 0.5% OPTH.SOL BTL BOTH EYES SCH (08:54)
[2021-06-15] MEDS: Latanoprost 0.005% 2.5 ml BTL BOTH EYES SCH (19:30)
[2021-06-16] MEDS: Heparin 5000 UNITS/ML 1 mL VIAL SUBCUT SCH ×3 (09:09→23:00)
[2021-06-16] MEDS: Timolol 0.5% OPTH.SOL BTL BOTH EYES SCH (09:18)
[2021-06-16] MEDS: Latanoprost 0.005% 2.5 ml BTL BOTH EYES SCH (19:25)
[2021-06-17] MEDS: Timolol 0.5% OPTH.SOL BTL BOTH EYES SCH (09:33)
[2021-06-17] MEDS: Heparin 5000 UNITS/ML 1 mL VIAL SUBCUT SCH ×2 (09:35→22:40)
[2021-06-17] MEDS: Senna TAB 8.6 mg TAB PO PRN (20:06)
[2021-06-17] MEDS: Latanoprost 0.005% 2.5 ml BTL BOTH EYES SCH (20:19)
[2021-06-18] MEDS: Timolol 0.5% OPTH.SOL BTL BOTH EYES SCH (10:16)
[2021-06-18] MEDS: Heparin 5000 UNITS/ML 1 mL VIAL SUBCUT SCH ×2 (10:17→19:34)
[2021-06-18] MEDS ORDERED: Magnesium Hydroxide LIQ 30 ML UDC PO PRN (19:02)
[2021-06-18] MEDS: Senna TAB 8.6 mg TAB PO PRN (19:20)
[2021-06-18] MEDS: Latanoprost 0.005% 2.5 ml BTL BOTH EYES SCH (19:35)
[2021-06-19] MEDS: Heparin 5000 UNITS/ML 1 mL VIAL SUBCUT SCH ×2 (07:50→19:24)
[2021-06-19] MEDS: Timolol 0.5% OPTH.SOL BTL BOTH EYES SCH (07:51)
[2021-06-19] MEDS: Senna TAB 8.6 mg TAB PO PRN (18:59)
[2021-06-19] MEDS: Latanoprost 0.005% 2.5 ml BTL BOTH EYES SCH (19:24)
[2021-06-20 06:43] LABS: ABS Eosinophils 0.3 10^3/ul (0-0.6); ABS Lymphocytes 1.2 10^3/ul (1.0-4.8); ABS Monocytes 0.4 10^3/ul (0-0.8); Eosinophil % 7.7 %; Hematocrit 31 % (42-52); Hemoglobin 10.6 g/dL (14.0-18.0); Lymphocyte % 30.5 %; Mean Corpuscular HGB Conc 34 g/dL (31-36); Mean Corpuscular Hemoglobin 30 pg (27-31); Mean Corpuscular Volume 90 fL (80-94); Mean Platelet Volume 8.1 fL (7.4-10.4); Nucleated Red Blood Cells % 0.2; Platelet Count 176 10^3/uL (150-450); Red Blood Count 3.47 10^6 /uL (4.18-5.48); Red Cell Distribution Width 15 % (10-15)
[2021-06-20 07:09] LABS: Albumin 3.4 g/dL (3.2-5.2); Albumin/Globulin Ratio 1.1 (1-3); Calcium 9.1 mg/dL (8.6-10.3); Total Bilirubin 0.5 mg/dL (0.2-1.0); Total Protein 6.4 g/dL (6.4-8.9); eGFR CKD-EPI 95.1 (>60)
[2021-06-20] MEDS: Heparin 5000 UNITS/ML 1 mL VIAL SUBCUT SCH ×3 (09:16→20:41)
[2021-06-20] MEDS: Timolol 0.5% OPTH.SOL BTL BOTH EYES SCH (09:25)
[2021-06-20] MEDS: Latanoprost 0.005% 2.5 ml BTL BOTH EYES SCH (20:01)
[2021-06-21] MEDS: Timolol 0.5% OPTH.SOL BTL BOTH EYES SCH (09:28)
[2021-06-21] MEDS: Heparin 5000 UNITS/ML 1 mL VIAL SUBCUT SCH ×2 (09:34→20:33)
[2021-06-21] MEDS: Latanoprost 0.005% 2.5 ml BTL BOTH EYES SCH (20:17)
[2021-06-22] MEDS: Timolol 0.5% OPTH.SOL BTL BOTH EYES SCH (10:13)
[2021-06-22] MEDS: Heparin 5000 UNITS/ML 1 mL VIAL SUBCUT SCH ×2 (10:13→20:21)
[2021-06-22] MEDS: Latanoprost 0.005% 2.5 ml BTL BOTH EYES SCH (20:21)
[2021-06-23] MEDS: Heparin 5000 UNITS/ML 1 mL VIAL SUBCUT SCH ×3 (11:33→21:46)
[2021-06-23] MEDS: Timolol 0.5% OPTH.SOL BTL BOTH EYES SCH (11:34)
[2021-06-23] MEDS: Latanoprost 0.005% 2.5 ml BTL BOTH EYES SCH ×2 (21:31→21:47)
[2021-06-24] MEDS: Heparin 5000 UNITS/ML 1 mL VIAL SUBCUT SCH (11:28)
[2021-06-24] MEDS: Timolol 0.5% OPTH.SOL BTL BOTH EYES SCH (11:29)
[2021-06-24] MEDS: Latanoprost 0.005% 2.5 ml BTL BOTH EYES SCH (22:13)
[2021-06-25] MEDS: Senna TAB 8.6 mg TAB PO PRN (02:17)
[2021-06-25] MEDS: Heparin 5000 UNITS/ML 1 mL VIAL SUBCUT SCH ×3 (02:39→20:10)
[2021-06-25] MEDS: Timolol 0.5% OPTH.SOL BTL BOTH EYES SCH (11:14)
[2021-06-25] MEDS: Latanoprost 0.005% 2.5 ml BTL BOTH EYES SCH (21:29)
[2021-06-26] MEDS: Heparin 5000 UNITS/ML 1 mL VIAL SUBCUT SCH ×2 (11:22→20:29)
[2021-06-26] MEDS: Timolol 0.5% OPTH.SOL BTL BOTH EYES SCH (11:23)
[2021-06-26] MEDS: Latanoprost 0.005% 2.5 ml BTL BOTH EYES SCH (20:37)
[2021-06-27 04:10] VITALS: BP 136/81
[2021-06-27 07:00] LABS: ABS Basophils 0.1 10^3/ul (0-0.2); ABS Eosinophils 0.4 10^3/ul (0-0.6); ABS Lymphocytes 1.4 10^3/ul (1.0-4.8); ABS Monocytes 0.4 10^3/ul (0-0.8); Hematocrit 33 % (42-52); Hemoglobin 11.1 g/dL (14.0-18.0); Lymphocyte % 32.5 %; Mean Corpuscular HGB Conc 34 g/dL (31-36); Mean Corpuscular Hemoglobin 31 pg (27-31); Mean Corpuscular Volume 91 fL (80-94); Mean Platelet Volume 8.6 fL (7.4-10.4); Nucleated Red Blood Cells % 0.1; Platelet Count 157 10^3/uL (150-450); Red Blood Count 3.64 10^6 /uL (4.18-5.48); Red Cell Distribution Width 15 % (10-15); White Blood Count 4.3 10^3/uL (3.5-10.8)
[2021-06-27 07:14] LABS: Albumin 3.5 g/dL (3.2-5.2); Albumin/Globulin Ratio 1.3 (1-3); Calcium 9.2 mg/dL (8.6-10.3); Globulin 2.8 g/dL (2-4); Total Bilirubin 0.6 mg/dL (0.2-1.0); Total Protein 6.3 g/dL (6.4-8.9); eGFR CKD-EPI 92.1 (>60)
[2021-06-27] MEDS: Heparin 5000 UNITS/ML 1 mL VIAL SUBCUT SCH (08:39)
[2021-06-27] MEDS: Timolol 0.5% OPTH.SOL BTL BOTH EYES SCH (08:40)
== END 2021-06-27 12:00 | disposition home health service (06) | DRG 945 ==
LOC: PMRU 12:56
PROVIDERS: ADMIT Physical Medicine & Rehabilitation; ATTEND Physical Medicine & Rehabilitation